=== PATIENT | female | born 1990 | race Caucasian/White ===

== ENCOUNTER 2016-10-20 05:54 | Inpatient (IN) | payer OTHER, MEDICAID ==
[2016-10-20] VITALS (40 sets, daily range): BP systolic 94–136; BP diastolic 51–76
[~2016-10-20] VITALS: Ht 154.9 cm; Wt 71.3 kg
[~2016-10-20 05:54] MED LIST: ACHD5005 PO; ALBU8.5H2; AMOX500C2 PO; BCP; CPR500T PO; CYCL10TA9 PO; FLT05NA16 NSEACH; IBP800T PO; IBUP-15 PO; LORA10TA7 PO; LORA1TAB PO; METR500T PO; MONT10TA21 PO; NAPR-243 PO; NITR-65 PO; [UNRECOGNIZED DRUG - CODE] PO
[2016-10-20] MEDS ORDERED: PREN-37 PO (06:30)
[2016-10-20] MEDS ORDERED: ceFAZolin 2 GM/50 ML NS 50 ML IV ONE (07:00)
[2016-10-20] MEDS ORDERED: fentaNYL INJECTION 100 MCG/2 ML AMP IVP PRN (07:00)
[2016-10-20] MEDS ORDERED: D5 LR IV SOLUTION 1,000 ML IV ONE (07:24)
--- NOTE | 2016-10-20 07:58 | History & Physical-OB ---
OB - Chief Complaint & HPI Date Date of Admission: Date of Admission: October 20, 2016 at 07:17 Chief Complaint/History OB-Reason for Admission/Chief: Onset of Labor Hx : 3 Hx Para: 0 Expected Date of Delivery: October 23, 2016 Gestational Age in Weeks: 39 Other reason for admission: Caitlin is a 26 y/o @ 39w5d by L=10 here with contractions. Started at 2300 yesterday (10/19). No LOF, VB. Fetus active. Became more painful and came for evaluation this AM. c/b tobacco use (counseled to quit has not done so), h/o polysubstance abuse (UDS have been negative), Rh neg s/p RhoGAM, RNI, chronic back pain, anemia, GBS+. History of Labs O neg Antibody neg RNI Hep B/C neg/neg HIV neg RPR NR GC/CT neg/neg GBS+ Allergies and Home Medications Allergies Coded Allergies: Penicillins (Verified Allergy, Unknown, 10/20/16) SEVERE FAMILY HX, SO PT HAS NEVER TAKEN. Home Medications Loratadine 10 Mg Tablet, 10 MG PO DAILY, (Reported) Vit/Iron Fumarate/FA 1 Each Tablet, 1 EACH PO DAILY, (Reported) OB - History Hx of Present Care: Yes Ultrasounds: Normal mid trimester US Obstetrical Complications: Other (anemia, GBS+) Medical Complications: Other (tobacco use, h/o polysubstance abuse, chronic back pain) Information Induced Hypertension: No Maternal Gestational Diabetes: No Hemorrhage: No Obstetrical History Hx : 3 Hx Para: 0 Hx Total # of Abortions (Spona: 2 Delivery History Hx Blood Disorders: No Adverse Rxn to Tranfusion: No Patient Past Medical History see above Social History/Family History HIV/AIDS: No Recent Infectious Disease Expo: No Sexually Transmitted Disease: No Alcohol Use: Denies Use Recreational Drug Use: No Smoking Cessation: Current every day smoker Immunizations Tetanus Booster (TDap): Less than 5yrs Rubella: not immune RPR/VDRL: Negative GBS Status: Positive HBsAG: Negative OB - Admission Exam Physical Exam Vitals: Vital Signs 10/20/16 07:00 Temp 97.5 Pulse 71 Resp 18 B/P (MAP) 122/73 O2 Delivery Room Air HEENT: NCAT Heart: Rhythm Normal Lungs: Clear Abdomen: Gravid Extremities: Normal Reflexes: Normal Cervical Dilatation: 3cm Effacement: 75% Station: -2 Membranes: Intact Heart Rate: 120's Accelerations: Accelerations Present Decelerations: No Decelerations Short Term Variability: Present Home Demonstration Agent Variability: Average (6-25) Contractions on Admission: < 5 Minutes Apart Medrano Scoring Tool (Modified) Dilation (cm): 3-4cm (2) Effacement (%): 80-100% (3) Descent/Station: -2 (1) Cervix Consistency: Soft (2) Cervix Position: Middle/Mid-Position (1) Subtract 1 point for: Nulliparity (-1) Medrano Score: 8 OB - Assessment/Plan/Diagnosis Plan Other Plan 26 y/o @ 39w5d with active labor, GBS+ Rh neg RNI Tobacco use daily H/o polysubstance abuse although no use for several years and negative UDS during Chronic back pain Ancef for GBS ppx (PCN allergy, not anaphylaxis) Will plan to AROM for augmentation and otherwise expectantly manage. Pitocin if indicated. SHEREE Spaulding MD October 20, 2016 07:58
[2016-10-20] MEDS ORDERED: CATHETER FLUSH 10 ML SYR IV PRN (08:15)
[2016-10-20] MEDS ORDERED: D5 LR IV SOLUTION 1,000 ML IV SCH (08:47)
[2016-10-20 08:54] LABS: BASOPHILS # (AUTO) 0.1 10^3/uL (0.0-0.1); BASOPHILS % (AUTO) 0 % (0-10); EOSINOPHILS # (AUTO) 0.2 10^3/uL (0.0-0.3); EOSINOPHILS % (AUTO) 1 % (0-10); LYMPHOCYTES # (AUTO) 3.4 X 10^3 (1.0-4.0); LYMPHOCYTES % (AUTO) 19 % (12-44); MEAN CORPUSCULAR HEMOGLOBIN 34 PG (25-34); MEAN CORPUSCULAR HGB CONC 35 G/DL (32-36); MEAN CORPUSCULAR VOLUME 97 FL (80-99); MEAN PLATELET VOLUME 13.8 FL (7.4-10.4); MONOCYTES # (AUTO) 1.1 X 10^3 (0.0-1.0); MONOCYTES % (AUTO) 6 % (0-12); NEUTROPHILS % (AUTO) 73 % (42-75); PLATELET COUNT 170 10^3/uL (130-400); RED BLOOD COUNT 3.92 10^6/uL (4.35-5.85); RED CELL DISTRIBUTION WIDTH 12.9 % (10.0-14.5); WHITE BLOOD COUNT 17.8 10^3/uL (4.3-11.0)
[2016-10-20] MEDS ORDERED: MINERAL OIL CONCENTRATE 99.9% 15 ML UDC TOP PRN (09:00)
[2016-10-20 09:25] LABS: BAND NEUTROPHILS 6 %; NEUTROPHILS % (MANUAL) 78 %
[2016-10-20 09:26] LABS: BASOPHILS % (MANUAL) 1 %; EOSINOPHILS % (MANUAL) 1 %; LYMPHOCYTES % (MANUAL) 12 %
[2016-10-20] MEDS ORDERED: LACTATED RINGERS 1,000 ML IV ONE (09:30)
[2016-10-20] MEDS ORDERED: SUFENTA 0.6MCG/ML BUPIVA 0.125 100 ML ONE (10:30)
[2016-10-20] MEDS ORDERED: BUPIVACAINE 0.25% 30 ML (SENSORCAINE) VIAL ONE (10:36)
[2016-10-20] MEDS ORDERED: fentaNYL INJECTION 100 MCG/2 ML AMP ONE (10:36)
[2016-10-20] MEDS ORDERED: LIDOCAINE PF 2% 10 ML (XYLOCAINE) AMP ONE (10:36)
[2016-10-20] MEDS ORDERED: LACTATED RINGERS 1,000 ML IV SCH (11:17)
[2016-10-20] MEDS ORDERED: ONDANSETRON 4 MG/2 ML (SDV) Z0FRAN IV PRN (11:30)
[2016-10-20] MEDS ORDERED: EPIDURAL (SUFENTA 0.6MCG/ML BUPIVA 0.125%) 100 ML BAG EPI PRN (11:30)
[2016-10-20] MEDS ORDERED: diphenhydrAMINE 50 MG/ML INJ (BENADRYL) IV PRN (11:30)
[2016-10-20] MEDS ORDERED: NALOXONE 0.4 MG/ML 1 ML (NARCAN) VIAL IV PRN (11:30)
[2016-10-20 11:35] LABS: BILIRUBIN,URINE NEGATIVE (NEGATIVE); KETONES,URINE NEGATIVE (NEGATIVE); LEUKOCYTE ESTERASE ,URINE 1+ (NEGATIVE); NITRITE,URINE NEGATIVE (NEGATIVE); PH,URINE 6.5 (5-9); PROTEIN,URINE NEGATIVE (NEGATIVE); UROBILINOGEN,URINE NORMAL (NORMAL)
[2016-10-20 11:44] LABS: SQUAMOUS EPITHELIAL CELL,UR RARE /HPF
[2016-10-20] MEDS ORDERED: OXYTOCIN/NORMAL SALINE 500 ML IV SCH ×2 (11:46→17:10)
[2016-10-20] MEDS ORDERED: ceFAZolin INJECTION 1,000 MG in NS (IVPB) 50 ML IV SCH (14:00)
--- NOTE | 2016-10-20 15:34 | OB Labor & Delivery Record ---
Vag Delivery Note Vag Delivery Note Date of Delivery: 10/20/16 Preoperative Diagnosis: Caitlin Candelario is a 26 y/o @ 39w5d with active labor, GBS+, tobacco use, RNI, Rh neg Postoperative Diagnosis: Same Surgeon: Sheree Reyna MD Anesthesia: Epidural Delivery Type: Spontaneous vaginal delivery Findings: Viable female , apgars 8/9, weight pending at time of note Lacerations: small vaginal abrasion (repaired), right periurethral abrasion ( reapproximated) Intact placenta with 3 vessel cord. Nuchal cord x 1, body cord or shoulder dystocia Estimated Blood Loss: 400 ml Complications: None Condition: Stable Description of Procedure: The patient is a 26 y/o @ 39w5d who presented with active labor. She was admitted and informed consent was obtained. Her labor course was remarkable for AROM with clear fluid, augmentation with pitocin, and epidural for analgesia. She was adequately treated with ancef for GBS prophylaxis (given her PCN allergy). She progressed to complete dilatation and began to push. She was then set up for delivery. The infant's head was delivered atraumatically in the occiput anterior position. The shoulders and remainder of the 's body were then delivered without difficulty. Upon delivery, the head was held below the level of the perineum and the mouth and nares were bulb suctioned. The was placed on her mother's chest and the cord was doubly clamped and cut following a 30-60 second pause. An intact placenta with 3- vessel cord delivered via Harjeet and there was found to be minimal bleeding. Vigorous fundal massage was performed and the fundus was found to be firm. IV oxytocin was given. Examination of the vagina and perineum revealed a small vaginal wall separation which was repaired with a figure of eight 3-0 Vicryl suture, and a small right periurethral laceration repaired in the usual fashion with 3-0 vicryl suture. Following the repair, sponge, instrument and needle counts were correct. Mom and baby were both in stable condition in the labor suite. Vitals - Labs Vital Signs - I&O Vital Signs Date Time Temp Pulse Resp B/P (MAP) Pulse Ox O2 Delivery O2 Flow Rate FiO2 10/20/16 12:45 98.9 57 18 96/53 98 Room Air 10/20/16 12:30 74 18 96/53 97 Room Air 10/20/16 12:15 84 18 94/51 97 Room Air 10/20/16 12:00 65 18 104/55 97 Room Air 10/20/16 11:45 68 18 109/59 97 Room Air 10/20/16 11:25 60 18 113/52 98 Room Air 10/20/16 11:20 68 18 109/56 97 Room Air 10/20/16 11:15 76 18 120/58 97 Room Air 10/20/16 11:10 56 18 116/57 98 Room Air 10/20/16 11:05 61 18 114/66 98 Room Air 10/20/16 11:00 60 18 110/73 99 Room Air 10/20/16 10:55 67 18 115/58 99 Room Air 10/20/16 10:50 64 18 125/60 99 Room Air 10/20/16 10:45 75 18 121/60 99 Room Air 10/20/16 10:40 60 18 120/65 99 Room Air 10/20/16 09:40 68 18 136/74 Room Air 10/20/16 08:40 76 18 118/58 Room Air 10/20/16 07:40 97.9 56 18 119/67 Room Air 10/20/16 07:00 97.5 71 18 122/73 Room Air Labs Laboratory Tests 10/20/16 06:15: Urine Color YELLOW, Urine Clarity CLEAR, Urine pH 6.5, Urine Specific [place] 1.010L, Urine Protein NEGATIVE, Urine Glucose (UA) NEGATIVE, Urine Ketones NEGATIVE, Urine Nitrite NEGATIVE, Urine Bilirubin NEGATIVE, Urine Urobilinogen NORMAL, Urine Leukocyte Esterase 1+H, Urine RBC (Auto) NEGATIVE, Urine RBC NONE , Urine WBC NONE, Urine Squamous Epithelial Cells RARE, Urine Crystals NONE, Urine Bacteria NEGATIVE, Urine Casts NONE, Urine Mucus NEGATIVE, Urine Culture Indicated NO 10/20/16 07:05: White Blood Count 17.8H, Red Blood Count 3.92L, Hemoglobin 13.2, Hematocrit 38, Mean Corpuscular Volume 97, Mean Corpuscular Hemoglobin 34, Mean Corpuscular Hemoglobin Concent 35, Red Cell Distribution Width 12.9, Platelet Count 170, Mean Platelet Volume 13.8H, Neutrophils (%) (Auto) 73, Lymphocytes (%) (Auto) 19 , Monocytes (%) (Auto) 6, Eosinophils (%) (Auto) 1, Basophils (%) (Auto) 0, Neutrophils # (Auto) 13.0H, Lymphocytes # (Auto) 3.4, Monocytes # (Auto) 1.1H, Eosinophils # (Auto) 0.2, Basophils # (Auto) 0.1, Neutrophils % (Manual) 78, Lymphocytes % (Manual) 12, Monocytes % (Manual) 2, Eosinophils % (Manual) 1, Basophils % (Manual) 1, Band Neutrophils 6, Blood Morphology Comment NORMAL SHEREE REYNA MD October 20, 2016 15:34
[2016-10-20] MEDS ORDERED: DOCU-143 PO (15:37)
[2016-10-20] MEDS ORDERED: HYDR-3729 PO (15:37)
[2016-10-20] MEDS ORDERED: IBUP-1773 PO (15:37)
--- NOTE | 2016-10-20 15:38 | Discharge Inst-Women's Service ---
Discharge Inst-Women's Serv Depart Medication/Instructions New, Converted or Re-Newed RX: RX on Chart Final Diagnosis Active labor, TIUP, Consults/Follow Up Additional Follow Up: Yes Orders/Referrals [address] Ryena Activity Activity: Activity as Tolerated Driving Instructions: You May Drive (unless taking narcotic pain medications) NO SMOKING: NO SMOKING Nothing Inside Vagina: No Douching, No [place], No Tampons Diet Discharge Diet: No Restrictions Symptoms to Report to : Bleeding Excessive, Pain Increased, Fever Over 101 Degrees F, Pain/Pressure in Chest, Vaginal Bleeding Increase, Dizziness/Fainting , Nausea/Vomiting, Shortness of Breath For Any Problems or Questions: Contact Your Physician SHEREE REYNA MD October 20, 2016 15:38
[2016-10-20] MEDS ORDERED: MEASLES,MUMPS,RUBELLA 1 EA INJ SQ ONE (17:15)
[2016-10-20] MEDS ORDERED: HYDROcodone/APAP 5 MG/325 MG (LORTAB) TAB PO PRN (17:15)
[2016-10-20] MEDS ORDERED: BENZOCAINE/MENTHOL (DERMOPLAST) 56 ML CAN TP PRN (17:15)
[2016-10-20] MEDS ORDERED: WITCH HAZEL(TUCKS) 40 EA JAR TOP PRN (17:15)
[2016-10-20] MEDS: IBUPROFEN 600 MG (MOTRIN) TAB PO SCH (20:04)
[2016-10-21 00:40] VITALS: BP 98/52
[2016-10-21] MEDS: IBUPROFEN 600 MG (MOTRIN) TAB PO SCH ×4 (02:09→21:08)
[2016-10-21 05:10] VITALS: BP 106/62
[2016-10-21 05:45] LABS: BASOPHILS % (AUTO) 0 % (0-10); EOSINOPHILS # (AUTO) 0.2 10^3/uL (0.0-0.3); EOSINOPHILS % (AUTO) 1 % (0-10); LYMPHOCYTES % (AUTO) 19 % (12-44); MEAN CORPUSCULAR HEMOGLOBIN 34 PG (25-34); MEAN CORPUSCULAR HGB CONC 34 G/DL (32-36); MEAN CORPUSCULAR VOLUME 99 FL (80-99); MEAN PLATELET VOLUME 13.4 FL (7.4-10.4); MONOCYTES # (AUTO) 1.7 X 10^3 (0.0-1.0); MONOCYTES % (AUTO) 8 % (0-12); NEUTROPHILS # (AUTO) 14.7 X 10^3 (1.8-7.8); NEUTROPHILS % (AUTO) 71 % (42-75); PLATELET COUNT 144 10^3/uL (130-400); RED BLOOD COUNT 3.03 10^6/uL (4.35-5.85); RED CELL DISTRIBUTION WIDTH 12.8 % (10.0-14.5); WHITE BLOOD COUNT 20.7 10^3/uL (4.3-11.0)
[2016-10-21] MEDS: CATHETER FLUSH 10 ML SYR IV SCH ×2 (07:38→07:39)
[2016-10-21] MEDS: DOCUSATE SODIUM 100 MG (COLACE) CAP PO SCH ×3 (08:05→21:08)
[2016-10-21] MEDS: PRENATAL VITAMIN 1 EA TAB PO SCH (08:05)
[2016-10-21 08:55] VITALS: BP 108/71
[2016-10-21] MEDS ORDERED: FERR-84 PO (09:05)
--- NOTE | 2016-10-21 09:23 | Postpartum Progress Note ---
Note Note Day # 1 Subjective: Patient is without complaints. Ambulating, voiding. Tolerating a regular diet without nausea or vomiting. Normal lochia. Pain is well controlled with oral pain medications. Breast feeding. Going out to smoke still. Objective: Vital Sign - Last 12Hours 10/21/16 10/21/16 00:40 05:10 Temp 98.7 98.1 Pulse 60 60 Resp 18 18 B/P (MAP) 98/52 106/62 Pulse Ox 98 99 O2 Delivery Room Air Room Air Intake and Output 10/21/16 00:00 Intake Total 2050 ml Balance 2050 ml Physical Exam: General - Alert and oriented, no apparent distress Abdomen - Soft, appropriately tender to palpation, non-distended, fundus firm at umbilicus Extremities - no edema, negative Roxann's bilaterally Laboratory Tests Test 10/21/16 05:15 Range/Units White Blood Count 20.7 H 4.3-11.0 10^3/uL Red Blood Count 3.03 L 4.35-5.85 10^6/uL Hemoglobin 10.3 #L 11.5-16.0 G/DL Hematocrit 30 L 35-52 % Mean Corpuscular Volume 99 80-99 FL Mean Corpuscular Hemoglobin 34 25-34 PG Mean Corpuscular Hemoglobin Concent 34 32-36 G/DL Red Cell Distribution Width 12.8 10.0-14.5 % Platelet Count 144 130-400 10^3/uL Mean Platelet Volume 13.4 H 7.4-10.4 FL Neutrophils (%) (Auto) 71 42-75 % Lymphocytes (%) (Auto) 19 12-44 % Monocytes (%) (Auto) 8 0-12 % Eosinophils (%) (Auto) 1 0-10 % Basophils (%) (Auto) 0 0-10 % Neutrophils # (Auto) 14.7 H 1.8-7.8 X 10^3 Lymphocytes # (Auto) 4.0 1.0-4.0 X 10^3 Monocytes # (Auto) 1.7 H 0.0-1.0 X 10^3 Eosinophils # (Auto) 0.2 0.0-0.3 10^3/uL Basophils # (Auto) 0.0 0.0-0.1 10^3/uL Assessment: 26 y/o post- day # 1, status post spontaneous vaginal delivery. Recovering well, hemodynamically stable Acute blood loss anemia Hgb 10.3 RNI Rh neg but infant also Rh neg Tobacco use Plan: Routine care. Encourage breast feeding. Encouraged tobacco cessation. Needs MMR. Encourage ambulation. Ferrous sulfate supplementation. Plan for discharge tomorrow. Vitals - Labs Vital Signs - I&O Vital Signs Date Time Temp Pulse Resp B/P (MAP) Pulse Ox O2 Delivery O2 Flow Rate FiO2 10/21/16 05:10 98.1 60 18 106/62 99 Room Air 10/21/16 00:40 98.7 60 18 98/52 98 Room Air 10/20/16 19:55 98.5 87 18 118/68 99 Room Air 10/20/16 18:15 72 20 108/59 Room Air 10/20/16 18:00 64 20 112/55 Room Air 10/20/16 17:45 81 20 134/60 Room Air 10/20/16 17:30 76 20 127/65 Room Air 10/20/16 17:15 61 20 121/65 Room Air 10/20/16 17:00 69 20 115/64 Room Air 10/20/16 16:45 65 20 125/76 Room Air 10/20/16 16:30 83 20 108/55 Room Air 10/20/16 16:15 69 20 107/54 Room Air 10/20/16 16:00 61 18 132/58 Room Air 10/20/16 15:45 18 Room Air 10/20/16 15:30 98.8 18 Room Air 10/20/16 15:28 Non Rebreather 10.00 10/20/16 15:15 64 18 112/56 Room Air 10/20/16 15:00 67 18 113/70 99 Room Air 10/20/16 14:45 58 18 106/59 99 Room Air 10/20/16 14:30 57 18 108/55 98 Room Air 10/20/16 14:15 59 18 104/58 97 Room Air 10/20/16 14:00 67 18 98/55 97 Room Air 10/20/16 13:45 69 18 106/57 98 Room Air 10/20/16 13:30 71 18 103/54 98 Room Air 10/20/16 13:15 83 18 109/57 97 Room Air 10/20/16 13:00 74 18 102/69 98 Room Air 10/20/16 12:45 98.9 57 18 96/53 98 Room Air 10/20/16 12:30 74 18 96/53 97 Room Air 10/20/16 12:15 84 18 94/51 97 Room Air 10/20/16 12:00 65 18 104/55 97 Room Air 10/20/16 11:45 68 18 109/59 97 Room Air 10/20/16 11:25 60 18 113/52 98 Room Air 10/20/16 11:20 68 18 109/56 97 Room Air 10/20/16 11:15 76 18 120/58 97 Room Air 10/20/16 11:10 56 18 116/57 98 Room Air 10/20/16 11:05 61 18 114/66 98 Room Air 10/20/16 11:00 60 18 110/73 99 Room Air 10/20/16 10:55 67 18 115/58 99 Room Air 10/20/16 10:50 64 18 125/60 99 Room Air 10/20/16 10:45 75 18 121/60 99 Room Air 10/20/16 10:40 60 18 120/65 99 Room Air 10/20/16 09:40 68 18 136/74 Room Air I & O 10/21/16 07:00 Intake Total 2100 ml Balance 2100 ml Labs Laboratory Tests 10/21/16 05:15: White Blood Count 20.7H, Red Blood Count 3.03L, Hemoglobin 10.3#L, Hematocrit 30L, Mean Corpuscular Volume 99, Mean Corpuscular Hemoglobin 34, Mean Corpuscular Hemoglobin Concent 34, Red Cell Distribution Width 12.8, Platelet Count 144, Mean Platelet Volume 13.4H, Neutrophils (%) (Auto) 71, Lymphocytes (% ) (Auto) 19, Monocytes (%) (Auto) 8, Eosinophils (%) (Auto) 1, Basophils (%) ( Auto) 0, Neutrophils # (Auto) 14.7H, Lymphocytes # (Auto) 4.0, Monocytes # (Auto ) 1.7H, Eosinophils # (Auto) 0.2, Basophils # (Auto) 0.0 SHEREE DA SILVA MD October 21, 2016 09:23
[2016-10-21] MEDS: FERROUS SULF 325 MG (IRON) TAB PO SCH (13:00)
[2016-10-21 14:39] VITALS: BP 112/69
[2016-10-21 21:09] VITALS: BP 126/73
[2016-10-22] MEDS: IBUPROFEN 600 MG (MOTRIN) TAB PO SCH ×2 (02:42→08:45)
[2016-10-22 02:45] VITALS: BP 106/66
--- NOTE | 2016-10-22 08:14 | Postpartum Progress Note ---
Note Note Day # 2 Subjective: Patient is without complaints. Ambulating, voiding. Tolerating a regular diet without nausea or vomiting. Normal lochia. Pain is well controlled with oral pain medications. Breast feeding thinking of switching to formula due to latch issues. Objective: Vital Sign - Last 12Hours 10/21/16 10/22/16 21:09 02:45 Temp 97.8 97.3 Pulse 68 65 Resp 18 20 B/P (MAP) 126/73 106/66 Pulse Ox 98 99 O2 Delivery Room Air Room Air Physical Exam: General - Alert and oriented, no apparent distress Abdomen - Soft, appropriately tender to palpation, non-distended, fundus firm at umbilicus Extremities - no edema, negative Roxann's bilaterally no new labs Assessment: 26 y/o post- day # 2, status post spontaneous vaginal delivery. Recovering well, hemodynamically stable Acute blood loss anemia Hgb 10.3 RNI Rh neg but also Rh neg Tobacco use Plan: Routine care. Encourage breast feeding. Encouraged tobacco cessation. MMR prior to discharge Encourage ambulation. Ferrous sulfate supplementation. Plan for discharge today, f/u with me in 6 weeks, wants Nexplanon for contraception Vitals - Labs Vital Signs - I&O Vital Signs Date Time Temp Pulse Resp B/P (MAP) Pulse Ox O2 Delivery O2 Flow Rate FiO2 10/22/16 02:45 97.3 65 20 106/66 99 Room Air 10/21/16 21:09 97.8 68 18 126/73 98 Room Air 10/21/16 14:39 97.8 72 18 112/69 Room Air 10/21/16 08:55 97.3 68 18 108/71 99 Room Air SHEREE DA SILVA MD October 22, 2016 08:14
[2016-10-22 08:43] VITALS: BP 112/74
[2016-10-22] MEDS: DOCUSATE SODIUM 100 MG (COLACE) CAP PO SCH (08:45)
[2016-10-22] MEDS: FERROUS SULF 325 MG (IRON) TAB PO SCH (08:46)
[2016-10-22] MEDS: PRENATAL VITAMIN 1 EA TAB PO SCH (08:46)
--- NOTE | 2016-10-22 10:20 | Anesthesia-Regional Post-Op ---
Regional Patient Condition Mental Status: Alert, Oriented x3 Circulation: Same as Pre-Op Headache: Absent Sensation: Full Recovery Motor Block: Absent Post Op Complications Complications None Follow Up Care/Instructions Patient Instructions None needed. Anesthesia/Patient Condition Patient is doing well, no complaints, stable vital signs, no apparent adverse anesthesia problems. No complications reported per nursing. MICHAEL GOSS CRNA October 22, 2016 10:20
[2016-10-22 13:14] VITALS: BP 112/74
== END 2016-10-22 13:14 | disposition home or self-care (01) | DRG 775 ==
LOC: WSo 05:54 → LDRP 05:55 → WSo 07:16 → LDRP 07:17
PROVIDERS: ADMIT Obstetrics & Gynecology; ATTEND Obstetrics & Gynecology
PROC: 0UQMXZZ Repair Vulva, External Approach (ICD-10-PCS; principal; 2016-10-20)
PROC: 10E0XZZ Delivery of Products of Conception, External Approach (ICD-10-PCS; 2016-10-20)
DX: O99.824 Streptococcus B carrier state complicating childbirth (principal); O71.82 Other specified trauma to perineum and vulva; O99.334 Smoking (tobacco) complicating childbirth; F17.210 Nicotine dependence, cigarettes, uncomplicated; O69.81X0 Labor and delivery complicated by cord around neck, without compression, not applicable or unspecified; D62 Acute posthemorrhagic anemia; O99.02 Anemia complicating childbirth; Z3A.39 39 weeks gestation of pregnancy; Z37.0 Single live birth; Z23 Encounter for immunization
CPT/HCPCS: 36415; 81000; 85007; 85025; 85027; 86850; 86900; 86901; 90707; 99212

== ENCOUNTER 2016-10-29 18:56 | Inpatient (IN) | payer OTHER, MEDICAID ==
[~2016-10-29] VITALS: Ht 154.9 cm; Wt 66.5 kg
[~2016-10-29 18:56] MED LIST changes: +DOCU-143 PO; +FERR-84 PO; +HYDR-3729 PO; +IBUP-1773 PO; +PREN-37 PO
[2016-10-29] MEDS ORDERED: NS IV 1000 ML 1,000 ML IV ONE (19:11)
[2016-10-29 19:58] LABS: INR 1.1 (0.8-1.4); PROTHROMBIN TIME PATIENT 13.8 SEC (12.2-14.7)
[2016-10-29 20:02] LABS: BILIRUBIN,URINE NEGATIVE (NEGATIVE); KETONES,URINE NEGATIVE (NEGATIVE); LEUKOCYTE ESTERASE ,URINE NEGATIVE (NEGATIVE); NITRITE,URINE NEGATIVE (NEGATIVE); PH,URINE 8 (5-9); PROTEIN,URINE NEGATIVE (NEGATIVE); UROBILINOGEN,URINE NORMAL (NORMAL)
[2016-10-29 20:07] LABS: BASOPHILS % (AUTO) 0 % (0-10); EOSINOPHILS % (AUTO) 0 % (0-10); LYMPHOCYTES # (AUTO) 1.7 X 10^3 (1.0-4.0); LYMPHOCYTES % (AUTO) 6 % (12-44); MEAN CORPUSCULAR HEMOGLOBIN 34 PG (25-34); MEAN CORPUSCULAR HGB CONC 35 G/DL (32-36); MEAN CORPUSCULAR VOLUME 99 FL (80-99); MEAN PLATELET VOLUME 11.6 FL (7.4-10.4); MONOCYTES # (AUTO) 0.9 X 10^3 (0.0-1.0); MONOCYTES % (AUTO) 4 % (0-12); NEUTROPHILS # (AUTO) 23.3 X 10^3 (1.8-7.8); NEUTROPHILS % (AUTO) 90 % (42-75); PLATELET COUNT 245 10^3/uL (130-400); RED BLOOD COUNT 3.33 10^6/uL (4.35-5.85); RED CELL DISTRIBUTION WIDTH 12.5 % (10.0-14.5); WHITE BLOOD COUNT 25.9 10^3/uL (4.3-11.0)
[2016-10-29 20:08] LABS: ALANINE AMINOTRANSFERASE 17 U/L (0-55); ALBUMIN 3.4 G/DL (3.2-4.5); ASPARTATE AMINO TRANSFERASE 14 U/L (5-34); BILIRUBIN,TOTAL 0.5 MG/DL (0.1-1.0); BLOOD UREA NITROGEN 12 MG/DL (7-18); BUN/CREATININE RATIO 16; CALCIUM 8.8 MG/DL (8.5-10.1); CARBON DIOXIDE 24 MMOL/L (21-32); CREATININE SERUM 0.73 MG/DL (0.60-1.30); GFR ESTIMATED > 60; GLUCOSE 121 MG/DL (70-105); TOTAL PROTEIN 5.8 G/DL (6.4-8.2)
--- NOTE | 2016-10-29 20:16 | Diagnostic Imaging Report ---
CLINICAL INDICATION: Patient states she had fever for all of today and filling nauseous. Her highest fever was 102.8. Patient had a baby 9 days ago. EXAM: Portable chest x-ray upright view. COMPARISONS: None. FINDINGS: Lungs/pleura: Lungs are clear. There is no pneumothorax. There is no pleural effusion. Mediastinum: Unremarkable. Pulmonary vasculature: Unremarkable. Heart: Unremarkable. Bones/extrathoracic soft tissue: Unremarkable. IMPRESSION: 1: There is no radiographic evidence of acute cardiopulmonary process. Dictated by: Dictated on workstation # [id number]
[2016-10-29 20:17] LABS: WBC,URINE RARE /HPF
--- NOTE | 2016-10-29 20:22 | ED General ---
General Chief Complaint: Fever-Adult/Adol Stated Complaint: POST /PELVIC PAIN/PRESSURE/FEVER Nursing Triage Note: PT STATES SHE HAS HAD A FEVER FOR ALL OF TODAY AND FEELING NAUSEA. HER HIGHEST FEVER TODAY WAS 102.8. SHE HAD A BABY 9 DAYS AGO. HER TEMPERATURE TODAY IS 100.8. NO VOMITING. Nursing Sepsis Screen: No Definite Risk Source of Information: Patient Exam Limitations: No Limitations History of Present Illness Time Seen by Provider: 19:00 Initial Comments This 26-year-old young lady presents to the emergency room with complaints of fever and abdominal pressure day number 9. Temperature at home has been up to 102.8 and is 100.8 on arrival. She is tachycardic as well. Pain is in the central pelvis from the umbilicus down through the suprapubic region. There is no increase in pain with urination. She continues to have bleeding with slight increase today. She has been nauseated throughout the day without vomiting. Symptoms just started today. Pain is becoming unbearable. She has been unable to break her fever with ibuprofen 600 mg. She last took ibuprofen about 30 minutes prior to arrival. She is breast and bottle feeding. She has a relatively uncomplicated past medical history. Review of her chart reveals an uncomplicated spontaneous vaginal delivery by Dr. Reyna on October 20. She had some minor vaginal and periurethral lacerations but no other complications. Allergies and Home Medications Allergies Coded Allergies: Penicillins (Verified Allergy, Unknown, 10/20/16) SEVERE FAMILY HX, SO PT HAS NEVER TAKEN. Home Medications Docusate Sodium 100 Mg Capsule, 100 MG PO BID PRN for CONSTIPATION-1ST LINE, #60 Prescribed by: SHEREE REYNA on 10/20/16 1537 Ferrous Sulfate 325 Mg Tablet, 325 MG PO DAILY, #30 Ref 2 Prescribed by: SHEREE REYNA on 10/21/16 0905 Ibuprofen 600 Mg Tablet, 600 MG PO Q6H, #40 Ref 0 Prescribed by: SHEREE REYNA on 10/20/16 1537 Vit/Iron Fumarate/FA 1 Each Tablet, 1 EACH PO DAILY, (Reported) Constitutional: see HPI EENTM: no symptoms reported Respiratory: no symptoms reported Cardiovascular: no symptoms reported Gastrointestinal: see HPI Genitourinary: see HPI : No Musculoskeletal: no symptoms reported Skin: see HPI Psychiatric/Neurological: No Symptoms Reported Hematologic/Lymphatic: No Symptoms Reported Past Jfuuwri-Zyinlf-Liinwy Hx Patient Social History Alcohol Use: Occasionally Uses Recreational Drug Use: No Smoking Status: Current Everyday Smoker Type Used: Cigarettes 2nd Hand Smoke Exposure: Yes Recent Foreign Travel: No Contact w/Someone Who Travel: No Recent Infectious Disease Expo: No Recent Hopitalizations: No Immunizations Up To Date Tetanus Booster (TDap): Less than 5yrs PED Vaccines UTD: No Seasonal Allergies Seasonal Allergies: No Surgeries HX Surgeries: Yes Surgeries: Adenoidectomy, Appendectomy, Tonsillectomy Respiratory Hx Respiratory Disorders: Yes (possible nasal polyps) Cardiovascular Hx Cardiac Disorders: No Neurological Hx Neurological Disorders: No Reproductive System Hx Reproductive Disorders: No Sexually Transmitted Disease: No HIV/AIDS: No Genitourinary Hx Genitourinary Disorders: No Gastrointestinal Hx Gastrointestinal Disorders: No Musculoskeletal Hx Musculoskeletal Disorders: No Endocrine Hx Endocrine Disorders: No HEENT HX ENT Disorders: No Cancer Hx Cancer: No Psychosocial Hx Psychiatric Problems: Yes Behavioral Health Disorders: Anxiety Integumentary HX Skin/Integumentary Disorder: No Blood Transfusions Hx Blood Disorders: No Adverse Reaction to a Blood Tr: No Family Medical History Significant Family History: No Pertinent Family Hx Family Medial History: Diabetes mellitus (MOTHER FATHER) FH: cancer (MOTHER PGF) FH: heart disease (FATHER MGM PGM) Hypertension (MOTHER FATHER MGM PGM MGF PGF) Physical Exam-Suspected Sepsis Physical Exam Vital Signs Vital Sign - Last 12Hours 10/29/16 19:04 Temp 100.8 Pulse 111 Resp 20 B/P (MAP) 115/66 Pulse Ox 96 O2 Delivery Room Air Capillary Refill : Less Than 3 Seconds Blood Pressure Mean: 82 General Appearance: No Apparent Distress, WD/WN, Thin, Other (appears generally ill) HEENT: Normal ENT Inspection Neck: Normal Inspection Respiratory: Lungs Clear, Normal Breath Sounds, No Accessory Muscle Use, No Respiratory Distress Cardiovascular: No Edema, No Murmur, Tachycardia Gastrointestinal: Normal Bowel Sounds, Soft, Tenderness (Central pelvic tenderness from the umbilicus to the suprapubic region) Genital/Rectal: Other (vaginal bleeding noted with well-healing periurethral laceration with sutures intact) Back: Normal Inspection Extremity: Normal Inspection, No Pedal Edema Neurologic/Psychiatric: Alert, Oriented x3, No Motor/Sensory Deficits, Normal 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, 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 Norm as Tested Skin: normal color, warm/dry, other (see above) Focused Exam Evaluation Sepsis Stage: Sepsis Possible Source: Genitouriary Time of Focused Exam: 22:31 Respiratory: Lungs Clear, Normal Breath Sounds, No Accessory Muscle Use, No Respiratory Distress Cardiovascular: Regular Rate, Rhythm, No Edema, No Murmur Capillary Refill: Less Than 3 Seconds Skin: normal color, warm/dry Lactic Acid Level Laboratory Tests Test 10/29/16 19:37 Lactic Acid Level 1.11 MMOL/L (0.50-2.00) Progress/Results/Core Measures Suspected Sepsis Recent Fever Within 48 Hours: Yes Infection Criteria Present: None New/Unexplained Altered Menta: No Sepsis Screen: No Definite Risk Sepsis Diagnosis: SIRS Temperature:100.8 Pulse: 111 Respiratory Rate: 20 Laboratory Tests 10/29/16 19:37: White Blood Count 25.9H Blood Pressure 115 /66 Mean: 82 Laboratory Tests 10/29/16 19:37: Creatinine 0.73, INR Comment 1.1, Platelet Count 245, Total Bilirubin 0.5 Results/Orders Lab Results Laboratory Tests Test 10/29/16 19:37 10/29/16 19:54 Range/Units White Blood Count 25.9 H 4.3-11.0 10^3/uL Red Blood Count 3.33 L 4.35-5.85 10^6/uL Hemoglobin 11.3 L 11.5-16.0 G/DL Hematocrit 33 L 35-52 % Mean Corpuscular Volume 99 80-99 FL Mean Corpuscular Hemoglobin 34 25-34 PG Mean Corpuscular Hemoglobin Concent 35 32-36 G/DL Red Cell Distribution Width 12.5 10.0-14.5 % Platelet Count 245 130-400 10^3/uL Mean Platelet Volume 11.6 H 7.4-10.4 FL Neutrophils (%) (Auto) 90 H 42-75 % Lymphocytes (%) (Auto) 6 L 12-44 % Monocytes (%) (Auto) 4 0-12 % Eosinophils (%) (Auto) 0 0-10 % Basophils (%) (Auto) 0 0-10 % Neutrophils # (Auto) 23.3 H 1.8-7.8 X 10^3 Lymphocytes # (Auto) 1.7 1.0-4.0 X 10^3 Monocytes # (Auto) 0.9 0.0-1.0 X 10^3 Eosinophils # (Auto) 0.0 0.0-0.3 10^3/uL Basophils # (Auto) 0.0 0.0-0.1 10^3/uL Neutrophils % (Manual) 76 % Lymphocytes % (Manual) 6 % Monocytes % (Manual) 1 % Eosinophils % (Manual) 0 % Basophils % (Manual) 0 % Band Neutrophils 17 % Blood Morphology Comment NORMAL Prothrombin Time 13.8 12.2-14.7 SEC INR Comment 1.1 0.8-1.4 Activated Partial Thromboplast Time 34 24-35 SEC Sodium Level 139 135-145 MMOL/L Potassium Level 3.4 L 3.6-5.0 MMOL/L Chloride Level 106 98-107 MMOL/L Carbon Dioxide Level 24 21-32 MMOL/L Anion Gap 9 5-14 MMOL/L Blood Urea Nitrogen 12 7-18 MG/DL Creatinine 0.73 0.60-1.30 MG/DL Estimat Glomerular Filtration Rate > 60 BUN/Creatinine Ratio 16 Glucose Level 121 H 70-105 MG/DL Lactic Acid Level 1.11 0.50-2.00 MMOL/L Calcium Level 8.8 8.5-10.1 MG/DL Total Bilirubin 0.5 0.1-1.0 MG/DL Aspartate Amino Transf (AST/SGOT) 14 5-34 U/L Alanine Aminotransferase (ALT/SGPT) 17 0-55 U/L Alkaline Phosphatase 91 40-136 U/L Total Protein 5.8 L 6.4-8.2 G/DL Albumin 3.4 3.2-4.5 G/DL Urine Color YELLOW Urine Clarity CLEAR Urine pH 8 5-9 Urine Specific [place] 1.010 L 1.016-1.022 Urine Protein NEGATIVE NEGATIVE Urine Glucose (UA) NEGATIVE NEGATIVE Urine Ketones NEGATIVE NEGATIVE Urine Nitrite NEGATIVE NEGATIVE Urine Bilirubin NEGATIVE NEGATIVE Urine Urobilinogen NORMAL NORMAL MG/DL Urine Leukocyte Esterase NEGATIVE NEGATIVE Urine RBC (Auto) NEGATIVE NEGATIVE Urine RBC RARE /HPF Urine WBC RARE /HPF Urine Crystals NONE /LPF Urine Bacteria NONE /HPF Urine Casts NONE /LPF Urine Mucus SMALL H /LPF Urine Culture Indicated NO My Orders Orders - POLO OCAMPO MD Cbc With Automated Diff (10/29/16 18:58) Comprehensive Metabolic Panel (10/29/16 18:58) Ua Culture If Indicated (10/29/16 18:58) Saline Lock/Iv-Start (10/29/16 18:58) Lactic Acid Analyzer (10/29/16 19:11) Blood Culture (10/29/16 19:11) Sputum Culture (10/29/16 19:11) Protime With Inr (10/29/16 19:11) Partial Thromboplastin Time (10/29/16 19:11) Chest 1 View, Ap/Pa Only (10/29/16 19:11) O2 (10/29/16 19:11) Vital Signs Adult Sepsis Patie Q1HR (10/29/16 19:11) Remove Rings In Anticipation O (10/29/16 19:11) Ns Iv 1000 Ml (Sodium Chloride 0.9%) (10/29/16 19:11) Manual Differential (10/29/16 19:37) Clindamycin Injection (Cleocin Injection (10/29/16 20:30) Fentanyl Injection (Sublimaze Injection (10/29/16 20:45) Us Pelvic (Non Ob)[id number] (10/29/16 20:27) Medications Given in ED Current Medications Medications Dose Ordered Sig/Kianna Route Start Time Stop Time Status Last Admin Dose Admin Clindamycin Phosphate 900 mg/ Sodium Chloride 56 ml @ 100 mls/hr ONCE ONCE IV 10/29/16 20:30 10/29/16 21:03 DC 10/29/16 20:45 100 MLS/HR Fentanyl Citrate 50 mcg ONCE ONCE IVP 10/29/16 20:45 10/29/16 20:46 DC 10/29/16 20:43 50 MCG Sodium Chloride 1,000 ml @ 0 mls/hr Q0M ONCE IV 10/29/16 19:11 10/29/16 19:13 DC 10/29/16 20:04 1,000 MLS/HR Vital Signs/I&O Vital Sign - Last 12Hours 10/29/16 19:04 Temp 100.8 Pulse 111 Resp 20 B/P (MAP) 115/66 Pulse Ox 96 O2 Delivery Room Air Capillary Refill : Less Than 3 Seconds Blood Pressure Mean: 82 Progress Note #1: Time: 20:25 Progress Note Sepsis is suspected. A liter of IV fluids was initiated. Blood cultures and lactic acid drawn. Catheter UA specimen was collected by this provider. Patient is noted to have a significant leukocytosis. Antibiotic selection will be pending UA results. Progress Note #2: Time: 20:44 Progress Note Clindamycin 900 mg IV was started for initial therapy for suspected metritis or endometritis. Ultrasound was also ordered. Fentanyl was given for pain. Diagnostic Imaging Diagonstic Imaging: Xray Plain Films/CT/US/NM/MRI: chest Comments Chest x-ray viewed by me and report reviewed. See report below: NAME: MARIS DIETZ [employer] REC#: [id number] PT STATUS: REG ER : 1990 PHYSICIAN: POLO OCAMPO MD ADMIT DATE: 10/29/16/ER Draft Date of Exam:10/29/16 CHEST 1 VIEW, AP/PA ONLY CLINICAL INDICATION: Patient states she had fever for all of today and filling nauseous. Her highest fever was 102.8. Patient had a baby 9 days ago. EXAM: Portable chest x-ray upright view. COMPARISONS: None. FINDINGS: Lungs/pleura: Lungs are clear. There is no pneumothorax. There is no pleural effusion. Mediastinum: Unremarkable. Pulmonary vasculature: Unremarkable. Heart: Unremarkable. Bones/extrathoracic soft tissue: Unremarkable. IMPRESSION: 1: There is no radiographic evidence of acute cardiopulmonary process. Dictated on workstation # [id number] Dict: 10/29/162011 Trans: 10/29/162014 [id number] Interpreted by: MUSA GIMENEZ MD Diagonstic Imaging: Ultrasound Plain Films/CT/US/NM/MRI: pelvis Comments Pelvic ultrasound discussed with the bacteriology technician and report reviewed. See report below: NAME: MARIS DIETZ [employer] REC#: [id number] PT STATUS: REG ER : 1990 PHYSICIAN: POLO OCAMPO MD ADMIT DATE: 10/29/16/ER Signed Date of Exam: 10/29/16 US PELVIC (NON OB)[id number] Clinical indication: Patient with vaginal delivery 9 days ago with pelvic pressure and fever. Patient has heavy bleeding. Exam: Transabdominal ultrasound. Comparison: None. Findings: There is heterogeneous debris seen in the endometrium which measures 1.8 cm. There is the suggestion of minimal Doppler flow within this debris. There is mild thickening of the endometrium, as well. The uterus appears post gravid and measures 15 cm x 9.5 cm x 7.1 cm. There is no significant increased flow involving the uterus. Both ovaries were unable to be visualized due to bowel gas and size of uterus. Impression: 1: There is heterogeneous debris within the endometrium with suggestion of some Doppler flow. This may represent retained products of conception. Early endometritis also cannot be completely excluded. 2: The remainder of the uterus is unremarkable and post-gravid in appearance. 3: Both ovaries were unable to be visualized on this exam. Dictated by: Dictated on workstation # [id number] Dict: 10/29/162156 Trans: 10/29/162209 Interpreted by: MUSA GIMENEZ MD Electronically signed by: MUSA GIMENEZ MD 10/29/162209 Departure Communication Time/Spoke to Admitting Phy: 22:15 Communication Case reviewed with Dr. Villanueva who agrees with admission to Dr. Reyna with continuation of clindamycin and addition of gentamicin. Impression Impression: Primary Impression: Sepsis Qualified Codes: A41.9 - Sepsis, unspecified organism Additional Impressions: Retained products of conception Pelvic pain Endometritis Disposition: ADMITTED INPATIENT Condition: Improved Decision to Admit Reason: Admit from ER (General) Decision to Admit/Date: October 29, 2016 Time/Decision to Admit Time: 20:25 Departure-Patient Inst. Referrals: [facility] (PCP) Primary Care Physician SHEREE REYAN MD (Family) Primary Care Physician POLO OCAMPO MD October 29, 2016 20:22
[2016-10-29 20:25] LABS: ANION GAP 9 MMOL/L (5-14); CHLORIDE 106 MMOL/L (98-107); POTASSIUM 3.4 MMOL/L (3.6-5.0); SODIUM 139 MMOL/L (135-145)
[2016-10-29 20:26] LABS: BAND NEUTROPHILS 17 %; BASOPHILS % (MANUAL) 0 %; EOSINOPHILS % (MANUAL) 0 %; LYMPHOCYTES % (MANUAL) 6 %; NEUTROPHILS % (MANUAL) 76 %
[2016-10-29] MEDS ORDERED: CLINDAMYCIN INJECTION 900 MG in NS (IVPB) 50 ML IV ONE (20:30)
[2016-10-29] MEDS ORDERED: fentaNYL INJECTION 100 MCG/2 ML AMP IVP ONE (20:45)
--- NOTE | 2016-10-29 22:10 | Diagnostic Imaging Report ---
Clinical indication: Patient with vaginal delivery 9 days ago with pelvic pressure and fever. Patient has heavy bleeding. Exam: Transabdominal ultrasound. Comparison: None. Findings: There is heterogeneous debris seen in the endometrium which measures 1.8 cm. There is the suggestion of minimal Doppler flow within this debris. There is mild thickening of the endometrium, as well. The uterus appears post gravid and measures 15 cm x 9.5 cm x 7.1 cm. There is no significant increased flow involving the uterus. Both ovaries were unable to be visualized due to bowel gas and size of uterus. Impression: 1: There is heterogeneous debris within the endometrium with suggestion of some Doppler flow. This may represent retained products of conception. Early endometritis also cannot be completely excluded. 2: The remainder of the uterus is unremarkable and post-gravid in appearance. 3: Both ovaries were unable to be visualized on this exam. Dictated by: Dictated on workstation # [id number]
[2016-10-29] MEDS ORDERED: fentaNYL INJECTION 100 MCG/2 ML AMP ONE (23:21)
[2016-10-29] MEDS ORDERED: D5 1/2 NS W/KCL 20 MEQ/L 1,000 ML IV ONE (23:21)
[2016-10-29 23:30] VITALS: BP 123/73
[2016-10-29] MEDS ORDERED: NICOTINE 21 MG (NICODERM) PATCH TD PRN (23:45)
[2016-10-29] MEDS ORDERED: ONDANSETRON 4 MG/2 ML (SDV) Z0FRAN IV PRN (23:45)
[2016-10-29] MEDS ORDERED: CATHETER FLUSH 10 ML SYR IV PRN (23:45)
[2016-10-30] VITALS (10 sets, daily range): BP systolic 118–156; BP diastolic 66–87
[2016-10-30] MEDS ORDERED: fentaNYL INJECTION 100 MCG/2 ML AMP IVP PRN
[2016-10-30] MEDS: fentaNYL INJECTION 100 MCG/2 ML AMP IV PRN ×6 (03:46→23:10)
[2016-10-30] MEDS: ACETAMINOPHEN 500 MG TAB (TYLENOL) PO PRN ×2 (03:46→15:44)
[2016-10-30 04:51] LABS: BASOPHILS % (AUTO) 0 % (0-10); EOSINOPHILS % (AUTO) 0 % (0-10); LYMPHOCYTES # (AUTO) 1.4 X 10^3 (1.0-4.0); LYMPHOCYTES % (AUTO) 8 % (12-44); MEAN CORPUSCULAR HEMOGLOBIN 33 PG (25-34); MEAN CORPUSCULAR HGB CONC 33 G/DL (32-36); MEAN CORPUSCULAR VOLUME 100 FL (80-99); MEAN PLATELET VOLUME 11.6 FL (7.4-10.4); MONOCYTES # (AUTO) 0.8 X 10^3 (0.0-1.0); MONOCYTES % (AUTO) 4 % (0-12); NEUTROPHILS # (AUTO) 14.9 X 10^3 (1.8-7.8); NEUTROPHILS % (AUTO) 87 % (42-75); PLATELET COUNT 220 10^3/uL (130-400); RED CELL DISTRIBUTION WIDTH 12.9 % (10.0-14.5)
[2016-10-30 05:10] LABS: ALANINE AMINOTRANSFERASE 15 U/L (0-55); ALBUMIN 3.3 G/DL (3.2-4.5); ANION GAP 9 MMOL/L (5-14); ASPARTATE AMINO TRANSFERASE 14 U/L (5-34); BILIRUBIN,TOTAL 0.4 MG/DL (0.1-1.0); BLOOD UREA NITROGEN 9 MG/DL (7-18); BUN/CREATININE RATIO 14; CALCIUM 8.2 MG/DL (8.5-10.1); CARBON DIOXIDE 22 MMOL/L (21-32); CHLORIDE 108 MMOL/L (98-107); CREATININE SERUM 0.63 MG/DL (0.60-1.30); GFR ESTIMATED > 60; GLUCOSE 98 MG/DL (70-105); POTASSIUM 3.5 MMOL/L (3.6-5.0); SODIUM 139 MMOL/L (135-145); TOTAL PROTEIN 5.6 G/DL (6.4-8.2)
[2016-10-30] MEDS: CATHETER FLUSH 10 ML SYR IV SCH ×3 (05:39→22:00)
[2016-10-30] MEDS: D5 1/2 NS W/KCL 20 MEQ/L 1,000 ML IV SCH ×4 (05:39→17:37)
[2016-10-30] MEDS: CLINDAMYCIN 900 MG/NS 50 ML IVPB IV SCH ×6 (05:55→22:00)
[2016-10-30] MEDS: GENTAMICIN 100 MG/50 ML IV SCH ×4 (07:46→23:45)
[2016-10-30] MEDS ORDERED: DOCU-143 PO (08:53)
[2016-10-30] MEDS ORDERED: IBUP-1773 PO (08:53)
[2016-10-30] MEDS ORDERED: FERR-74 PO (08:53)
[2016-10-30] MEDS: cefTRIAXone INJECTION 1,000 MG in NS (IVPB) 50 ML IV SCH (09:22)
--- NOTE | 2016-10-30 10:23 | History & Physical-OB/GYN ---
History of Present Illness History of Present Illness Reason for visit/HPI Pelvic pain, fevers, pressure x 2-3 days. Patient was doing well until approx 2 -3 days ago when she began having pelvic pain, and pressure. She developed a fever last night and presented to the ER. Reports mild to light lochia. Date of Admission October 29, 2016 at 10:19 pm I consulted on this patient on 10/30/16 10:16 Attending Physician Anita Minaya MD Admitting Physician Gab,[facility] Consult Allergies and Home Medications Allergies Coded Allergies: Penicillins (Verified Allergy, Unknown, 10/20/16) SEVERE FAMILY HX, SO PT HAS NEVER TAKEN. Home Medications Docusate Sodium 100 Mg Capsule, 100 MG PO BID PRN for CONSTIPATION-1ST LINE, ( Reported) Ferrous Sulfate 325 Mg Tablet, 325 MG PO DAILY, (Reported) Ibuprofen 600 Mg Tablet, 600 MG PO Q6H PRN for PAIN-MILD, (Reported) Vit/Iron Fumarate/FA 1 Each Tablet, 1 TAB PO DAILY, (Reported) Past Swsozcf-Obcbgz-Bmwwnj Hx Patient Social History Alcohol Use: Denies Use Recreational Drug Use: No Smoking Status: Current Everyday Smoker Type Used: Cigarettes 2nd Hand Smoke Exposure: Yes Physical Abuse Screen: No Sexual Abuse: No Recent Foreign Travel: No Contact w/other who traveled: No Recent Hopitalizations: Yes ([place] 10/20/16) Recent Infectious Disease Expo: No Immunizations Up To Date Tetanus Booster (TDap): Less than 5yrs Seasonal Allergies Seasonal Allergies: No Surgeries HX Surgeries: Yes Surgeries: Adenoidectomy, Appendectomy, Tonsillectomy Respiratory Hx Respiratory Disorders: Yes (possible nasal polyps) Cardiovascular Hx Cardiovascular Disorders: No Neurological Hx Neurological Disorders: No Reproductive System : No Hx Reproductive Disorders: No Sexually Transmitted Disease: No HIV/AIDS: No Genitourinary Hx Genitourinary Disorders: No Gastrointestinal Hx Gastrointestinal Disorders: No Musculoskeletal Hx Musculoskeletal Disorders: No Endocrine Hx Endocrine Disorders: No HEENT HX ENT Disorders: No Cancer Hx Cancer: No Psychosocial Hx Psychiatric Problems: Yes Behavioral Health Disorders: Anxiety Integumentary HX Skin/Integumentary Disorder: No Blood Transfusions Hx Blood Disorders: No Adverse Reaction to a Blood Tr: No Family Medical History Significant Family History: No Pertinent Family Hx Family Hx: Diabetes mellitus (MOTHER FATHER) FH: cancer (MOTHER PGF) FH: heart disease (FATHER MGM PGM) Hypertension (MOTHER FATHER MGM PGM MGF PGF) Constitutional: see HPI EENTM: see HPI Respiratory: see HPI Cardiovascular: see HPI Gastrointestinal: see HPI Genitourinary: see HPI : No Skin: no symptoms reported Psychiatric/Neurological: No Symptoms Reported All Other Systems Reviewed Negative Unless Noted: Yes Physical Exam Physical Exam Vital Signs Vital Signs Date Time Temp Pulse Resp B/P (MAP) Pulse Ox O2 Delivery O2 Flow Rate FiO2 10/30/16 08:00 97.9 51 20 132/77 96 10/30/16 06:30 97.4 10/30/16 05:30 99.0 58 16 120/69 97 10/30/16 05:14 99.1 10/30/16 04:30 99.1 57 18 124/66 96 10/30/16 03:46 102.2 10/30/16 03:30 102.2 70 18 156/77 93 10/30/16 02:30 100.4 63 20 144/71 96 10/30/16 01:30 99.9 64 20 134/75 97 10/30/16 00:30 98.2 68 18 119/69 99 10/29/16 23:30 98.8 69 16 123/73 98 10/29/16 23:05 99.3 75 20 97 10/29/16 19:04 100.8 111 20 115/66 96 Room Air I & O 10/30/16 07:00 Intake Total 1050 ml Output Total 400 ml Balance 650 ml Capillary Refill : Less Than 3 Seconds Labs Laboratory Tests 10/29/16 19:37: White Blood Count 25.9H, Red Blood Count 3.33L, Hemoglobin 11.3L, Hematocrit 33L , Mean Corpuscular Volume 99, Mean Corpuscular Hemoglobin 34, Mean Corpuscular Hemoglobin Concent 35, Red Cell Distribution Width 12.5, Platelet Count 245, Mean Platelet Volume 11.6H, Neutrophils (%) (Auto) 90H, Lymphocytes (%) (Auto) 6L, Monocytes (%) (Auto) 4, Eosinophils (%) (Auto) 0, Basophils (%) (Auto) 0, Neutrophils # (Auto) 23.3H, Lymphocytes # (Auto) 1.7, Monocytes # (Auto) 0.9, Eosinophils # (Auto) 0.0, Basophils # (Auto) 0.0, Neutrophils % (Manual) 76, Lymphocytes % (Manual) 6, Monocytes % (Manual) 1, Eosinophils % (Manual) 0, Basophils % (Manual) 0, Band Neutrophils 17, Blood Morphology Comment NORMAL, Prothrombin Time 13.8, INR Comment 1.1, Activated Partial Thromboplast Time 34, Sodium Level 139, Potassium Level 3.4L, Chloride Level 106, Carbon Dioxide Level 24, Anion Gap 9, Blood Urea Nitrogen 12, Creatinine 0.73, Estimat Glomerular Filtration Rate > 60, BUN/Creatinine Ratio 16, Glucose Level 121H, Lactic Acid Level 1.11, Calcium Level 8.8, Total Bilirubin 0.5, Aspartate Amino Transf (AST/SGOT) 14, Alanine Aminotransferase (ALT/SGPT) 17, Alkaline Phosphatase 91, Total Protein 5.8L, Albumin 3.4 10/29/16 19:54: Urine Color YELLOW, Urine Clarity CLEAR, Urine pH 8, Urine Specific [place] 1.010L, Urine Protein NEGATIVE, Urine Glucose (UA) NEGATIVE, Urine Ketones NEGATIVE, Urine Nitrite NEGATIVE, Urine Bilirubin NEGATIVE, Urine Urobilinogen NORMAL, Urine Leukocyte Esterase NEGATIVE, Urine RBC (Auto) NEGATIVE, Urine RBC RARE, Urine WBC RARE, Urine Crystals NONE, Urine Bacteria NONE, Urine Casts NONE , Urine Mucus SMALLH, Urine Culture Indicated NO 10/30/16 04:15: White Blood Count 17.0H, Red Blood Count 3.20L, Hemoglobin 10.6L, Hematocrit 32L , Mean Corpuscular Volume 100H, Mean Corpuscular Hemoglobin 33, Mean Corpuscular Hemoglobin Concent 33, Red Cell Distribution Width 12.9, Platelet Count 220, Mean Platelet Volume 11.6H, Neutrophils (%) (Auto) 87H, Lymphocytes ( %) (Auto) 8L, Monocytes (%) (Auto) 4, Eosinophils (%) (Auto) 0, Basophils (%) ( Auto) 0, Neutrophils # (Auto) 14.9H, Lymphocytes # (Auto) 1.4, Monocytes # (Auto ) 0.8, Eosinophils # (Auto) 0.0, Basophils # (Auto) 0.0, Sodium Level 139, Potassium Level 3.5L, Chloride Level 108H, Carbon Dioxide Level 22, Anion Gap 9 , Blood Urea Nitrogen 9, Creatinine 0.63, Estimat Glomerular Filtration Rate > 60, BUN/Creatinine Ratio 14, Glucose Level 98, Calcium Level 8.2L, Total Bilirubin 0.4, Aspartate Amino Transf (AST/SGOT) 14, Alanine Aminotransferase ( ALT/SGPT) 15, Alkaline Phosphatase 84, Total Protein 5.6L, Albumin 3.3 General Appearance: No Apparent Distress, WD/WN Respiratory: Lungs Clear Cardiovascular: Regular Rate, Rhythm Abdominal: normal bowel sounds Uterus: Tender (fundal tenderness) Comments Exam: Transabdominal ultrasound. Comparison: None. Findings: There is heterogeneous debris seen in the endometrium which measures 1.8 cm. There is the suggestion of minimal Doppler flow within this debris. There is mild thickening of the endometrium, as well. The uterus appears post gravid and measures 15 cm x 9.5 cm x 7.1 cm. There is no significant increased flow involving the uterus. Both ovaries were unable to be visualized due to bowel gas and size of uterus. Impression: 1: There is heterogeneous debris within the endometrium with suggestion of some Doppler flow. This may represent retained products of conception. Early endometritis also cannot be completely excluded. 2: The remainder of the uterus is unremarkable and post-gravid in appearance. 3: Both ovaries were unable to be visualized on this exam. Assessment/Plan Admission Diagnosis Diagnosis: PP 10 Days NVD Endometritis with suspected underlying sepsis Leukocytosis PCN allergy P: Continue Clinda, Gent, and Rocephin today WIll consider converting to oral regimen tomorrow If continues to improve, will consider dc tomorrow Clinical Quality Measures DVT/VTE Risk/Contraindication: Risk Factor Score Per Nursin RFS Level Per Nursing on Admit: 4+=Very High TOM JON DO October 30, 2016 10:23 am
[2016-10-31] VITALS: BP 139/77
[2016-10-31] MEDS: D5 1/2 NS W/KCL 20 MEQ/L 1,000 ML IV SCH ×2 (01:52→10:56)
[2016-10-31] MEDS: fentaNYL INJECTION 100 MCG/2 ML AMP IV PRN ×3 (03:39→12:45)
[2016-10-31 04:00] VITALS: BP 149/67
[2016-10-31 05:01] LABS: BASOPHILS % (AUTO) 0 % (0-10); EOSINOPHILS # (AUTO) 0.2 10^3/uL (0.0-0.3); EOSINOPHILS % (AUTO) 2 % (0-10); LYMPHOCYTES # (AUTO) 2.8 X 10^3 (1.0-4.0); LYMPHOCYTES % (AUTO) 27 % (12-44); MEAN CORPUSCULAR HEMOGLOBIN 34 PG (25-34); MEAN CORPUSCULAR HGB CONC 33 G/DL (32-36); MEAN CORPUSCULAR VOLUME 100 FL (80-99); MEAN PLATELET VOLUME 11.5 FL (7.4-10.4); MONOCYTES % (AUTO) 9 % (0-12); NEUTROPHILS # (AUTO) 6.4 X 10^3 (1.8-7.8); NEUTROPHILS % (AUTO) 62 % (42-75); PLATELET COUNT 218 10^3/uL (130-400); RED BLOOD COUNT 2.92 10^6/uL (4.35-5.85); RED CELL DISTRIBUTION WIDTH 12.8 % (10.0-14.5); WHITE BLOOD COUNT 10.4 10^3/uL (4.3-11.0)
[2016-10-31] MEDS: CATHETER FLUSH 10 ML SYR IV SCH ×3 (06:16→22:16)
[2016-10-31] MEDS: CLINDAMYCIN 900 MG/NS 50 ML IVPB IV SCH ×4 (06:22→14:17)
[2016-10-31 08:00] VITALS: BP 155/78
[2016-10-31] MEDS: GENTAMICIN 100 MG/50 ML IV SCH (08:07)
[2016-10-31] MEDS: DOCUSATE SODIUM 100 MG (COLACE) CAP PO SCH ×2 (08:16→20:18)
[2016-10-31] MEDS: cefTRIAXone INJECTION 1,000 MG in NS (IVPB) 50 ML IV SCH (09:56)
--- NOTE | 2016-10-31 11:04 | Progress Note-Standard ---
Standard Progress Note Progress Notes/Assess & Plan Date Seen 10/31/16 Assess & Plan/Chief Complaint PPD#11, HD#2 Raci denies complaints other than some abdominal pain this morning No fevers since yesterday afternoon Reports continued minimal lochia Nursing/pumping daughter who has been up to visit several times Eating/tolerating po intake Does have some constipation, wonders about a stool softener VS - Last 72 Hours, by Label 10/29/16 10/29/16 10/29/16 10/30/16 19:04 23:05 23:30 00:30 Temp 100.8 99.3 98.8 98.2 Pulse 111 75 69 68 Resp 20 20 16 18 B/P (MAP) 115/66 123/73 119/69 Pulse Ox 96 97 98 99 O2 Delivery Room Air 10/30/16 10/30/16 10/30/16 10/30/16 01:30 02:30 03:30 03:46 Temp 99.9 100.4 102.2 102.2 Pulse 64 63 70 Resp 20 20 18 B/P (MAP) 134/75 144/71 156/77 Pulse Ox 97 96 93 10/30/16 10/30/16 10/30/16 10/30/16 04:30 05:30 06:30 08:00 Temp 99.1 99.0 97.4 97.9 Pulse 57 58 51 Resp 18 16 20 B/P (MAP) 124/66 120/69 132/77 Pulse Ox 96 97 96 10/30/16 10/30/16 10/30/16 10/30/16 11:53 15:44 16:07 16:10 Temp 98.9 100.3 100.3 99.9 Pulse 87 63 Resp 16 16 B/P (MAP) 118/68 147/87 Pulse Ox 96 94 10/30/16 10/31/16 10/31/16 10/31/16 19:19 00:00 04:00 08:00 Temp 97.3 97.1 99.2 98.3 Pulse 50 53 59 55 Resp 16 14 18 20 B/P (MAP) 147/75 139/77 149/67 155/78 Pulse Ox 98 97 97 97 Gen: NAD Abd: Soft, moderately ttp LE: no edema Laboratory Tests Test 10/31/16 04:33 Range/Units White Blood Count 10.4 4.3-11.0 10^3/uL Red Blood Count 2.92 L 4.35-5.85 10^6/uL Hemoglobin 9.8 L 11.5-16.0 G/DL Hematocrit 29 L 35-52 % Mean Corpuscular Volume 100 H 80-99 FL Mean Corpuscular Hemoglobin 34 25-34 PG Mean Corpuscular Hemoglobin Concent 33 32-36 G/DL Red Cell Distribution Width 12.8 10.0-14.5 % Platelet Count 218 130-400 10^3/uL Mean Platelet Volume 11.5 H 7.4-10.4 FL Neutrophils (%) (Auto) 62 42-75 % Lymphocytes (%) (Auto) 27 12-44 % Monocytes (%) (Auto) 9 0-12 % Eosinophils (%) (Auto) 2 0-10 % Basophils (%) (Auto) 0 0-10 % Neutrophils # (Auto) 6.4 1.8-7.8 X 10^3 Lymphocytes # (Auto) 2.8 1.0-4.0 X 10^3 Monocytes # (Auto) 1.0 0.0-1.0 X 10^3 Eosinophils # (Auto) 0.2 0.0-0.3 10^3/uL Basophils # (Auto) 0.0 0.0-0.1 10^3/uL A/P: 26 y/o PPD#11 with endometritis Sepsis on admission - resolved Leukocytosis - now resolved Clinically improving. Has not had a technical fever > 100.4F since yesterday afternoon around 1600 however it was 100.3F and patient felt febrile. Will continue antbx until 24 hours after that time (1600 today) and then stop. If still afebrile in the AM, can d/c home. Continue rocephin/gentamicin/ clindamycin for now. Continue /pumping Colace added to regimen Discussed ultrasound with pt - EMS 1.8cm cannot r/o retained POC. However clinically picture is much more c/w endometritis. I do not think D&C is warranted at this time given her bleeding and appropriate response to antbx. Repeat CBC in AM Likely d/c home tomorrow once stable off antbx for almost 24 hours Labs Laboratory Tests 10/29/16 19:37 10/30/16 04:15 10/31/16 04:33 SHEREE DA SILVA MD October 31, 2016 11:04
--- NOTE | 2016-10-31 11:06 | Discharge Inst-Women's Service ---
Discharge Inst-Women's Serv Depart Medication/Instructions New, Converted or Re-Newed RX: RX on Chart Final Diagnosis endometritis, sepsis Consults/Follow Up Additional Follow Up: Yes Orders/Referrals 2-[address] Reyna Activity Activity: Activity as Tolerated NO SMOKING: NO SMOKING Nothing Inside Vagina: No Douching, No [place], No Tampons Diet Discharge Diet: No Restrictions Symptoms to Report to : Bleeding Excessive, Pain Increased, Fever Over 101 Degrees F, Pain/Pressure in Chest, Vaginal Bleeding Increase, Dizziness/Fainting , Nausea/Vomiting, Shortness of Breath For Any Problems or Questions: Contact Your Physician, Go to Emergency Room SHEREE REYNA MD October 31, 2016 11:06
[2016-10-31 12:00] VITALS: BP 173/80
[2016-10-31 16:00] VITALS: BP 154/73
[2016-10-31] MEDS: HYDROcodone/APAP 5 MG/325 MG (LORTAB) TAB PO PRN ×2 (16:32→21:50)
[2016-10-31 20:00] VITALS: BP 158/82
[2016-11-01] VITALS: BP 135/62
[2016-11-01 03:10] VITALS: BP 148/70
[2016-11-01] MEDS: HYDROcodone/APAP 5 MG/325 MG (LORTAB) TAB PO PRN ×2 (03:20→07:56)
[2016-11-01] MEDS: CATHETER FLUSH 10 ML SYR IV SCH (04:21)
[2016-11-01 04:27] LABS: BASOPHILS % (AUTO) 0 % (0-10); EOSINOPHILS # (AUTO) 0.4 10^3/uL (0.0-0.3); EOSINOPHILS % (AUTO) 4 % (0-10); LYMPHOCYTES # (AUTO) 3.9 X 10^3 (1.0-4.0); LYMPHOCYTES % (AUTO) 39 % (12-44); MEAN CORPUSCULAR HEMOGLOBIN 33 PG (25-34); MEAN CORPUSCULAR HGB CONC 33 G/DL (32-36); MEAN CORPUSCULAR VOLUME 100 FL (80-99); MEAN PLATELET VOLUME 11.5 FL (7.4-10.4); MONOCYTES # (AUTO) 0.8 X 10^3 (0.0-1.0); MONOCYTES % (AUTO) 8 % (0-12); NEUTROPHILS # (AUTO) 4.9 X 10^3 (1.8-7.8); NEUTROPHILS % (AUTO) 49 % (42-75); PLATELET COUNT 226 10^3/uL (130-400); RED BLOOD COUNT 3.13 10^6/uL (4.35-5.85); RED CELL DISTRIBUTION WIDTH 12.7 % (10.0-14.5)
[2016-11-01 07:47] VITALS: BP 130/64
[2016-11-01] MEDS: DOCUSATE SODIUM 100 MG (COLACE) CAP PO SCH (07:56)
--- NOTE | 2016-11-01 08:03 | Progress Note-Standard ---
Standard Progress Note Progress Notes/Assess & Plan Progress/Assessment & Plan Patient doing well. Afebrile since 10/30/16 off antibiotics. WBC normal. Will plan to discharge to home today without antibiotics Vital Sign - Last 12Hours 10/31/16 11/01/16 11/01/16 11/01/16 20:00 00:00 03:10 07:47 Temp 97.1 97.7 98.5 96.7 Pulse 52 54 52 55 Resp B/P (MAP) 158/82 135/62 148/70 130/64 Pulse Ox 99 98 96 98 Intake and Output 11/01/16 00:00 Intake Total 2806 ml Output Total 3575 ml Balance -769 ml Laboratory Tests Test 11/01/16 04:00 Range/Units White Blood Count 10.0 4.3-11.0 10^3/uL Red Blood Count 3.13 L 4.35-5.85 10^6/uL Hemoglobin 10.4 L 11.5-16.0 G/DL Hematocrit 31 L 35-52 % Mean Corpuscular Volume 100 H 80-99 FL Mean Corpuscular Hemoglobin 33 25-34 PG Mean Corpuscular Hemoglobin Concent 33 32-36 G/DL Red Cell Distribution Width 12.7 10.0-14.5 % Platelet Count 226 130-400 10^3/uL Mean Platelet Volume 11.5 H 7.4-10.4 FL Neutrophils (%) (Auto) 49 42-75 % Lymphocytes (%) (Auto) 39 12-44 % Monocytes (%) (Auto) 8 0-12 % Eosinophils (%) (Auto) 4 0-10 % Basophils (%) (Auto) 0 0-10 % Neutrophils # (Auto) 4.9 1.8-7.8 X 10^3 Lymphocytes # (Auto) 3.9 1.0-4.0 X 10^3 Monocytes # (Auto) 0.8 0.0-1.0 X 10^3 Eosinophils # (Auto) 0.4 H 0.0-0.3 10^3/uL Basophils # (Auto) 0.0 0.0-0.1 10^3/uL Assessment: Will discharge to home today. Follow up with Dr. Reyna. BASHIR SAMUELS DO November 01, 2016 08:03
== END 2016-11-01 09:35 | disposition home or self-care (01) | DRG 776 ==
LOC: EDUNIT# 18:56 → ER 18:59 → 4TH 22:19
PROVIDERS: ADMIT Obstetrics & Gynecology; ATTEND Obstetrics & Gynecology
DX: O86.12 Endometritis following delivery (principal); O99.63 Diseases of the digestive system complicating the puerperium; K59.00 Constipation, unspecified; O99.335 Smoking (tobacco) complicating the puerperium; F17.210 Nicotine dependence, cigarettes, uncomplicated
CPT/HCPCS: 36415; 71010; 76856; 80053; 81000; 83605; 85007; 85025; 85027; 85610; 85730; 87040; 96361; 96365; 96375

== ENCOUNTER 2017-05-15 16:39 | Emergency (ER) | payer MEDICAID, OTHER ==
[~2017-05-15] VITALS: Ht 154.9 cm; Wt 61.2 kg
[~2017-05-15 16:39] MED LIST changes: +FERR-74 PO
[2017-05-15] MEDS ORDERED: GUAI400T71 PO (17:03)
[2017-05-15] MEDS ORDERED: AZIT250T12 (17:03)
[2017-05-15] MEDS ORDERED: RT-ALBUTEROL SULF 2.5 MG/3 ML PRE-MIX VIAL INH STA (17:05)
--- NOTE | 2017-05-15 17:11 | ED Respiratory ---
General Chief Complaint: Cough/Cold/Flu Symptoms Stated Complaint: TROUBLE BREATHING;RUNNY NOSE Nursing Triage Note: ARRIVED VIA AMB TO ROOM 10. STATES SHE HAS BEEN SICK FOR A WHILE AND GOMEZ TO THE [facility] ON SATURDAY AND DX WITH A SINUS INFECTION. STATES SHE IS NOT BETTER AFTER BEING ON A ZPACK. COMPLAINS OF SOA ET COUGHING UP GREEN SPUTUM. Source: patient Exam Limitations: no limitations History of Present Illness Time seen by provider: 17:00 Initial Comments Patient presents by private conveyance with a chief complaint that she was diagnosed with sinusitis 3 days ago and put on azithromycin for it. If she is been having low-grade fevers since then of the 101.7 max. She has been using Tylenol Motrin she has not felt any improvement in her symptoms and now feels she is having some congestion subtle in her chest. She feels wheezy and tight of breath. She is a smoker usually three quarters pack a day but now is down to one quarter pack per day. She is breast-feeding and feels drained of any energy. She is not having any rash, nausea, vomiting, diarrhea, chest pain. She has no prior history of asthma or other lung disease. Allergies and Home Medications Allergies Coded Allergies: Penicillins (Verified Allergy, Unknown, 10/20/16) SEVERE FAMILY HX, SO PT HAS NEVER TAKEN. Home Medications Azithromycin 250 Mg Tablet, (Reported) Guaifenesin 400 Mg Tablet, 400 MG PO, (Reported) Constitutional: No chills, No diaphoresis, fever, malaise EENTM: No hearing loss, No ear pain Respiratory: cough, No phlegm, No short of breath Cardiovascular: No chest pain, No palpitations Gastrointestinal: No abdominal pain, No constipation, No diarrhea, No nausea, No vomiting Genitourinary: No discharge, No dysuria Skin: No pruritus, No rash Psychiatric/Neurological: Denies Headache, Denies Numbness, Denies Paresthesia Past Pgseuuf-Pqzphg-Mxkiea Hx Patient Social History Alcohol Use: Rarely Uses Recreational Drug Use: No Smoking Status: Never a Smoker Type Used: Cigarettes 2nd Hand Smoke Exposure: Yes Recent Foreign Travel: No Contact w/Someone Who Travel: No Recent Infectious Disease Expo: No Recent Hopitalizations: Yes (DELIVERY 10/20/16) Immunizations Up To Date Tetanus Booster (TDap): Less than 5yrs PED Vaccines UTD: Yes Seasonal Allergies Seasonal Allergies: No Surgeries History of Surgeries: Yes Surgeries: Adenoidectomy, Appendectomy, Tonsillectomy Respiratory History of Respiratory Disorde: No Currently Using CPAP: No Currently Using BIPAP: No Cardiovascular History of Cardiac Disorders: No Neurological History of Neurological Disord: No Reproductive System Hx Reproductive Disorders: No Sexually Transmitted Disease: No HIV/AIDS: No Genitourinary History of Genitourinary Disor: No Gastrointestinal History of Gastrointestinal Di: No Musculoskeletal History of Musculoskeletal Dis: No Endocrine History of Endocrine Disorders: No HEENT History of HEENT Disorders: No Cancer History of Cancer: No Psychosocial History of Psychiatric Problem: Yes Behavioral Health Disorders: Anxiety Integumentary History of Skin or Integumenta: No Blood Transfusions History of Blood Disorders: Yes (ANEMIA) Adverse Reaction to a Blood Tr: No Family Medical History Significant Family History: No Pertinent Family Hx Family Medial History: Diabetes mellitus (MOTHER FATHER) FH: cancer (MOTHER PGF) FH: heart disease (FATHER MGM PGM) Hypertension (MOTHER FATHER MGM PGM MGF PGF) Physical Exam Vital Signs Vital Sign - Last 12Hours 05/15/17 16:45 Temp 99.9 Pulse 91 Resp 18 B/P (MAP) 120/80 Pulse Ox 97 O2 Delivery Room Air Capillary Refill : Less Than 3 Seconds General Appearance: WD/WN, mild distress Eyes: Bilateral Eye Normal Inspection, Bilateral Eye PERRL, Bilateral Eye EOMI HEENT: PERRL/EOMI, normal ENT inspection, TMs normal, pharynx normal, other ( mild frontal sinus tenderness and maxillary sinuses are moderately tender to palpation. Left more than right. Left TMJ tender to palpation without crepitus on articulation.) Neck: non-tender, full range of motion, supple, normal inspection, lymphadenopathy (R), lymphadenopathy (L) (shotty anterior cervical chain lymphadenopathy. Bilateral.) Respiratory: chest non-tender, no respiratory distress, no accessory muscle use , wheezing (bilateral), expiration Cardiovascular: normal peripheral pulses, regular rate, rhythm Extremities: no pedal edema, normal capillary refill Neurologic/Psychiatric: alert, normal mood/affect, oriented x 3 Progress/Results/Core Measures Suspected Sepsis Recent Fever Within 48 Hours: Yes Infection Criteria Present: Documented Infection New/Unexplained Altered Menta: No Sepsis Screen: Possible Sepsis Risk Sepsis Diagnosis: SIRS Temperature:99.9 Pulse: 91 Respiratory Rate: 18 Blood Pressure 120 /80 Mean: 93 Results/Orders My Orders Orders - PALMER BOWEN Chest Pa/Lat (2 View) (05/15/17 17:05) Albuterol Pre-Mix Nebs (Rt) (Proventil (05/15/17 17:05) Svn Sm Volume Nebulizer Rt-Rfs (05/15/17 17:05) Vital Signs/I&O Vital Sign - Last 12Hours 05/15/17 05/15/17 16:45 17:23 Temp 99.9 Pulse 91 Resp 18 B/P (MAP) 120/80 Pulse Ox 97 98 O2 Delivery Room Air Room Air Capillary Refill : Less Than 3 Seconds Blood Pressure Mean: 93 Progress Note : Time: 17:12 Progress Note We'll give her a treatment of albuterol get a chest x-ray since she has some wheezing. It may be reasonable to switch her up from azithromycin to a cephalosporin although it may also be a little bit early to declare antibiotics failure of a macrolide at this time. Patient is unhappy with the azithromycin results and says she's used in the past and it worked much faster last time. I explained to her also may reasonable to consider this is a viral illness and no antibiotics will help. Omnicef is safe for breast-feeding and we can also have her get some probiotics. ECG Initial ECG Impression Date: May 15, 2017 Diagnostic Imaging Diagonstic Imaging: Xray Plain Films/CT/US/NM/MRI: chest Comments No acute cardio pulmonary processes noted a 2 view chest x-ray. VIA [facility], [place], [place] NAME: MARIS DIETZ Edgar Barnes [facility] REC#: [id number] PT STATUS: REG ER : 1990 PHYSICIAN: PALMER BOWEN MD ADMIT DATE: 05/15/17/ER Draft Date of Exam:05/15/17 CHEST PA/LAT (2 VIEW) INDICATION: Lower respiratory infection. PA and lateral chest. FINDINGS: Heart size and pulmonary vascularity are normal. Lungs are clear. There are no effusions or pneumothoraces. IMPRESSION: Negative chest. Dictated on workstation # [id number] Dict: 05/15/171725 Trans: 05/15/171728 [id number] Interpreted by: NICOLE COLLINS MD Electronically signed by: Reviewed: Reviewed by Me Departure Impression Impression: Primary Impression: Maxillary sinusitis, acute Qualified Codes: J01.00 - Acute maxillary sinusitis, unspecified Additional Impression: Bronchitis Disposition: HOME, SELF-CARE Condition: Improved Departure-Patient Inst. Decision time for Depature: 17:48 Referrals: [facility] (PCP) Primary Care Physician SHEREE DA SILVA MD (Family) Primary Care Physician Patient Instructions: Acute Bronchitis, Adult (DC) Add. Discharge Instructions: Drink lots and lots of fluids. Continue the antibiotics as prescribed. Return to the ER to begin to have fevers above 102.5 despite Tylenol and Motrin or intractable nausea and vomiting or shortness of breath. If you have shortness of breath or wheezing take 2 puffs of the albuterol every 4 hours as needed. Reduced how much you smoke or quit. Follow-up with primary care physician as needed. Use Tessalon Perles as needed for cough every 6 hours. All discharge instructions reviewed with patient and/or family. Voiced understanding. Scripts Albuterol Sulfate (PROAIR HFA) 1 Puff Puff 2 PUFF IH Q4H Y for SHORTNESS OF BREATH, #1 EACH 0 Refills 1 PUFF = 90 MCG Prov: PALMER BOWEN 05/15/17 Cefdinir (Cefdinir) 300 Mg Capsule 300 MG PO BID for 7 Days, #14 CAP 0 Refills Prov: PALMER BOWEN 05/15/17 Work/School Note: [employer]ing PALMER BOWEN May 15, 2017 17:11
--- NOTE | 2017-05-15 17:29 | Diagnostic Imaging Report ---
INDICATION: Lower respiratory infection. PA and lateral chest. FINDINGS: Heart size and pulmonary vascularity are normal. Lungs are clear. There are no effusions or pneumothoraces. IMPRESSION: Negative chest. Dictated by: Dictated on workstation # [id number]
[2017-05-15] MEDS ORDERED: CEFD300C3 PO (17:50)
[2017-05-15] MEDS ORDERED: RT-ALBUINH IH (17:50)
[2017-05-15 18:02] VITALS: BP 130/75
== END 2017-05-15 18:02 | disposition home or self-care (01) ==
LOC: EDUNIT# 16:39 → ER 16:41
DX: J01.00 Acute maxillary sinusitis, unspecified (principal); J40 Bronchitis, not specified as acute or chronic; F41.9 Anxiety disorder, unspecified; Z82.49 Family history of ischemic heart disease and other diseases of the circulatory system; Z77.22 Contact with and (suspected) exposure to environmental tobacco smoke (acute) (chronic); Z90.89 Acquired absence of other organs
CPT/HCPCS: 71020; 94640; 99282

== ENCOUNTER 2017-08-23 18:00 | Emergency (ER) | payer SELFPAY ==
[~2017-08-23] VITALS: Ht 154.9 cm; Wt 61.5 kg
[~2017-08-23 18:00] MED LIST changes: +AZIT250T12; +CEFD300C3 PO; -FERR-74 PO; +FERR325T18 PO; +GUAI400T71 PO; +RT-ALBUINH IH
[2017-08-23] MEDS ORDERED: NS IV 1000 ML 1,000 ML ONE (18:38)
[2017-08-23] MEDS ORDERED: ONDANSETRON 4 MG/2 ML (SDV) Z0FRAN ONE (18:38)
[2017-08-23] MEDS ORDERED: diphenhydrAMINE 50 MG/ML INJ (BENADRYL) IV STA (19:32)
[2017-08-23] MEDS ORDERED: fentaNYL INJECTION 100 MCG/2 ML AMP IVP STA (19:32)
--- NOTE | 2017-08-23 19:38 | ED Headache ---
General Chief Complaint: Head/Cervical Problems Stated Complaint: MIGRAINE Nursing Triage Note: CHEN times 24 hours, has taken motrin and tylenol Nursing Sepsis Screen: No Definite Risk History of Present Illness Date Seen by Provider: Aug 23, 2017 Time Seen by Provider: 19:20 Initial Comments 27 year old female presents for headache. She took Tylenol approximately 2 hours ago and ibuprofen approximately one hour ago with no relief of her symptoms. She's been treating it throughout the last 24 hours with Tylenol and ibuprofen, barely improving her symptoms. She has a history of getting migraines to this extent 1-2 times a year. She reports mild nausea and no vomiting. She had no aura prior to the headache starting. She denies any recent head trauma, sinus congestion or seizure activity. Timing/Duration: 24 hours Severity/Quality: moderate Location: frontal, occipital Prior Headaches/Recent Trauma: occasional headaches Modifying Factors: improves with cold therapy Associated Symptoms: No confusion, No fatigue, No facial pain, No fever/chills , No flushing, No loss of consciousness, nausea/vomiting, No nasal congestion, No nasal drainage, No numbness in legs/feet, No rash, No seizures, No sinus infection, No stiff neck, No vision changes, No weakness Allergies and Home Medications Allergies Coded Allergies: Penicillins (Verified Allergy, Unknown, 10/20/16) SEVERE FAMILY HX, SO PT HAS NEVER TAKEN. Home Medications Albuterol Sulfate 1 Puff Puff, 2 PUFF IH Q4H PRN for SHORTNESS OF BREATH 1 PUFF = 90 MCG Prescribed by: PALMER BOWEN on 05/15/171749 Cefdinir 300 Mg Capsule, 300 MG PO BID Prescribed by: PALMER BOWEN on 05/15/17 175 Patient Home Medication List Home Medication List Reviewed: Yes Constitutional: no symptoms reported, see HPI Eyes: See HPI, Photophobia Gastrointestinal: see HPI, No abdominal pain, No constipation, No diarrhea, nausea, No vomiting Psychiatric/Neurological: See HPI, Headache Past Rmvnhzl-Qnosaa-Gkqhgg Hx Patient Social History Alcohol Use: Occasionally Uses Recreational Drug Use: No Type Used: Cigarettes 2nd Hand Smoke Exposure: Yes Recent Foreign Travel: No Contact w/Someone Who Travel: No Recent Infectious Disease Expo: No Recent Hopitalizations: No (DELIVERY 10/20/16) Physical Abuse: No Sexual Abuse: No Mistreated: No Fear: No Immunizations Up To Date Tetanus Booster (TDap): Less than 5yrs PED Vaccines UTD: Yes Seasonal Allergies Seasonal Allergies: No Surgeries History of Surgeries: Yes Surgeries: Adenoidectomy, Appendectomy, Tonsillectomy Respiratory History of Respiratory Disorde: No Currently Using CPAP: No Currently Using BIPAP: No Cardiovascular History of Cardiac Disorders: No Neurological History of Neurological Disord: No Reproductive System Hx Reproductive Disorders: No Sexually Transmitted Disease: No HIV/AIDS: No Genitourinary History of Genitourinary Disor: No Gastrointestinal History of Gastrointestinal Di: No Musculoskeletal History of Musculoskeletal Dis: No Endocrine History of Endocrine Disorders: No HEENT History of HEENT Disorders: No Cancer History of Cancer: No Psychosocial History of Psychiatric Problem: Yes Behavioral Health Disorders: Anxiety Suicide Risk Score: 0 Integumentary History of Skin or Integumenta: No Blood Transfusions History of Blood Disorders: Yes (ANEMIA) Adverse Reaction to a Blood Tr: No Reviewed Nursing Assessment Reviewed/Agree w Nursing PMH: Yes Family Medical History Significant Family History: No Pertinent Family Hx Family Medial History: Diabetes mellitus (MOTHER FATHER) FH: cancer (MOTHER PGF) FH: heart disease (FATHER MGM PGM) Hypertension (MOTHER FATHER MGM PGM MGF PGF) Physical Exam Vital Signs Vital Signs - First Documented 08/23/17 18:30 Temp 98.0 Pulse 69 Resp 18 B/P (MAP) 106/79 (88) Pulse Ox 100 Capillary Refill : Less Than 3 Seconds General Appearance: WD/WN, no apparent distress HEENT: PERRL/EOMI, normal ENT inspection, TMs normal, pharynx normal Neck: non-tender, full range of motion, supple, normal inspection Cardiovascular: normal peripheral pulses, regular rate, rhythm, no murmur Respiratory: chest non-tender, lungs clear, normal breath sounds, no respiratory distress Gastrointestinal: normal bowel sounds, non tender, soft Extremities: normal range of motion, non-tender, no pedal edema, no calf tenderness, normal capillary refill Psychiatric: alert, oriented x 3 Crainal Nerves: normal hearing, normal speech, PERRL Coordination/Gait: normal finger to nose, normal gait Motor/Sensory: no motor deficit, no sensory deficit, no pronator drift Skin: normal color, warm/dry Lymphatic: no adenopathy Progress/Results/Core Measures Results/Orders My Orders Orders - SAURAV LOBATO Urine Bedside (08/23/17 19:02) Fentanyl Injection (Sublimaze Injection (08/23/17 19:32) Diphenhydramine Injection (Benadryl Inje (08/23/17 19:32) Medications Given in ED Current Medications Medications Dose Ordered Sig/Kianna Route Start Time Stop Time Status Last Admin Dose Admin Ondansetron HCl 4 mg STK-MED ONCE .ROUTE 08/23/17 18:38 08/23/17 18:42 DC 08/23/17 18:50 4 MG Sodium Chloride 1,000 ml @ ud STK-MED ONCE .ROUTE 08/23/17 18:38 08/23/17 18:42 DC 08/23/17 18:50 1,000 MLS/HR Vital Signs/I&O Vital Sign - Last 12Hours 08/23/17 08/23/17 18:30 20:35 Temp 98.0 Pulse 69 71 Resp 18 18 B/P (MAP) 106/79 (88) 116/62 Pulse Ox 100 99 Blood Pressure Mean: 88 Progress Note : Time: 19:20 Progress Note Initial evaluation completed, recommended normal saline 1 L IV, Benadryl 50 mg IV, Zofran 4 mg IV, and fentanyl 25 g IV. 2014 patient reports improvement in her symptoms, no further nausea, headache is resolved. His charge instructions and return precautions reviewed with the patient. All questions answered. Departure Impression Impression: Primary Impression: Migraine Qualified Codes: G43.019 - Migraine without aura, intractable, without status migrainosus Disposition: 01 HOME, SELF-CARE Condition: Improved Departure-Patient Inst. Decision time for Depature: 20:15 Referrals: [facility] (PCP) Primary Care Physician SHEREE DA SILVA MD (Family) Primary Care Physician Patient Instructions: Migraine Headache (DC) Add. Discharge Instructions: Take 2 Excedrin migraine at initial onset of headache, full bottle of water. Rest in dark room and headache is severe. Return to emergency Department if headache returns, visual changes, seizure activity, vomiting, or new problems. Follow-up with your primary care provider if symptoms are not improving. All discharge instructions reviewed with patient and/or family. Voiced understanding. Copy Copies To 1: SHEREE DA SILVA MD, AMY ARNP Aug 23, 2017 19:38
[2017-08-23 20:35] VITALS: BP 116/62
--- OUTSIDE RECORDS SUMMARY | 2017-08-25 06:31 | XMS REPORT ---
Author Author FAHAD HOGUE Organization [facility] Address [address] [place] [address] Care Team Providers Care Light Cleaner Name Role Phone MYKEL FAHAD Unavailable PROBLEMS Type Condition ICD9-CM Code AZR27-KS Code Onset Dates Condition Status SNOMED Code Problem Counseling on substance use and abuse V65.42 Active 563802286 Problem Routine general medical examination at health care facility V70.0 Active 229183554 Problem General counseling for prescription of oral contraceptives V25.01 Active 662960024757729 Problem Screening for malignant neoplasm of the cervix V76.2 Active 355195849 Problem Screening examination for venereal disease V74.5 Active 278295668 Problem Other specified headache syndromes 339.89 Active 35303251 Problem Unspecified sinusitis (chronic) 473.9 Active 12965839 Problem Lumbago 724.2 Active 897464119 Problem Urinary frequency 788.41 Active 453145428 Problem Dysfunction of Eustachian tube 381.81 Active 23476874 Problem Unspecified vaginitis and vulvovaginitis 616.10 Active 356080164 ALLERGIES Substance Reaction Event Type Date Status Penicillin G Sodium Unknown Drug Allergy Jul, Active SOCIAL HISTORY Never Assessed PLAN OF CARE Activity Details Follow Up prn Reason: VITAL SIGNS Height 62 in 2016-08-06 Weight 145.8 lbs 2016-08-06 Temperature 97.8 degrees Fahrenheit 2016-08-06 Heart Rate 88 bpm 2016-08-06 Respiratory Rate 18 2016-08-06 BMI 26.66 kg/m2 2016-08-06 Blood pressure systolic 118 mmHg 2016-08-06 Blood pressure diastolic 70 mmHg 2016-08-06 MEDICATIONS Medication Instructions Dosage Frequency Start Date End Date Duration Status 28-0.8 MG Active Iron 325 (65 Fe) MG Orally Once a day 1 tablet 24h Active RESULTS Name Result Date Reference Range STREP A (IN HOUSE) 2016-08-06 STREP A negative Control + Lot # [id number] Exp date mar 04 PROCEDURES Procedure Date Ordered Result Body Site STREP A ASSAY W/OPTIC Aug 06, 2016 IMMUNIZATIONS No Known Immunizations MEDICAL (GENERAL) HISTORY Type Description Date Medical History Headaches Medical History Substance abuse Surgical History tonsillectomy Surgical History appendectomy Hospitalization History sepsis, three days hospital stay after giving 10/2016
--- OUTSIDE RECORDS SUMMARY | 2017-08-25 06:31 | XMS REPORT ---
Author Author DANIEL RIVERA Organization [facility] Address [address] [place] [address] Care Team Providers Care Slot Router Name Role Phone DANIEL RIVERA Unavailable PROBLEMS Type Condition ICD9-CM Code JCY08-[id number] Code Onset Dates Condition Status SNOMED Code Problem Counseling on substance use and abuse V65.42 Active 324090081 Problem Routine general medical examination at health care facility V70.0 Active 824417774 Problem General counseling for prescription of oral contraceptives V25.01 Active 348797237144246 Problem Screening for malignant neoplasm of the cervix V76.2 Active 894701414 Problem Screening examination for venereal disease V74.5 Active 591932571 Problem Other specified headache syndromes 339.89 Active 04565336 Problem Unspecified sinusitis (chronic) 473.9 Active 31906603 Problem Lumbago 724.2 Active 186785604 Problem Urinary frequency 788.41 Active 060835574 Problem Dysfunction of Eustachian tube 381.81 Active 69034341 Problem Unspecified vaginitis and vulvovaginitis 616.10 Active 803126166 ALLERGIES Substance Reaction Event Type Date Status Penicillin G Sodium Unknown Drug Allergy May, Active SOCIAL HISTORY No smoking Hx information available PLAN OF CARE Activity Details Follow Up 2 Weeks Reason:if s/s not improving VITAL SIGNS Height 62 in 2016-06-13 Weight 141 lbs 2016-06-13 Temperature 98.4 degrees Fahrenheit 2016-06-13 Heart Rate 72 bpm 2016-06-13 Respiratory Rate 16 2016-06-13 BMI 25.79 kg/m2 2016-06-13 Blood pressure systolic 122 mmHg 2016-06-13 Blood pressure diastolic 68 mmHg 2016-06-13 MEDICATIONS Medication Instructions Dosage Frequency Start Date End Date Duration Status Clindamycin HCl 300 MG Orally every 8 hrs 1 capsule 8h May,Jun 10 days Active 28-0.8 MG Active RESULTS No Results PROCEDURES Procedure Date Ordered Related Diagnosis Body Site Office Visit, Est Pt., Level 3 Jun 13, 2016 IMMUNIZATIONS No Known Immunizations
--- OUTSIDE RECORDS SUMMARY | 2017-08-25 06:34 | XMS REPORT | Continuity of Care Document ---
Author Author [facility] Organization [facility] Address Unknown Phone Unavailable Allergies Active Description Code Type Severity Reaction Onset Reported/Identified Relationship to Patient Clinical Status Yes Penicillins Drug Allergy 10/26/2008 Yes Penicillins Drug Allergy N/A N/A 10/26/2008 Yes No Known Drug Allergies [id number] Drug Allergy Unknown N/A 09/21/2012 Yes Penicillins [id number] Drug Allergy Unknown N/A 10/20/2016 Medications There is no data. Problems Date Dx Coded Attending Type Code Diagnosis Diagnosed By 10/26/2008 626.4 Irregular Length Of Menstrual Periods 10/26/2008 V25.40 Visit For: Contraceptive Surveillance 10/26/2008 V69.2 Sexually Active Without Practicing 'safer Sex' 10/26/2008 PANKAJ IBANEZ DO 626.4 Irregular Length Of Menstrual Periods 10/26/2008 PANKAJ IBANEZ DO V25.40 Visit For: Contraceptive Surveillance 10/26/2008 PANKAJ IBANEZ DO V69.2 Sexually Active Without Practicing 'safer Sex' 10/26/2008 626.4 Irregular Length Of Menstrual Periods 10/26/2008 V25.40 Visit For: Contraceptive Surveillance 10/26/2008 V69.2 Sexually Active Without Practicing 'safer Sex' 10/26/2008 626.4 Irregular Length Of Menstrual Periods 10/26/2008 V25.40 Visit For: Contraceptive Surveillance 10/26/2008 V69.2 Sexually Active Without Practicing 'safer Sex' 10/26/2008 626.4 Irregular Length Of Menstrual Periods 10/26/2008 V25.40 Visit For: Contraceptive Surveillance 10/26/2008 V69.2 Sexually Active Without Practicing 'safer Sex' 10/26/2008 JONAS RODRIGUES APRN 626.4 Irregular Length Of Menstrual Periods 10/26/2008 JONAS RODRIGUES APRN V25.40 Visit For: Contraceptive Surveillance 10/26/2008 JONAS RODRIGUES APRN V69.2 Sexually Active Without Practicing 'safer Sex' 10/26/2008 YAN TURF KEEPER, ALINA S 626.4 Irregular Length Of Menstrual Periods 10/26/2008 YAN TURF KEEPER, ALINA S V25.40 Visit For: Contraceptive Surveillance 10/26/2008 YAN TURF KEEPER, ALINA S V69.2 Sexually Active Without Practicing 'safer Sex' 10/26/2008 YAN TURF KEEPER, ALINA S 626.4 Irregular Length Of Menstrual Periods 10/26/2008 YAN TURF KEEPER, ALINA S V25.40 Visit For: Contraceptive Surveillance 10/26/2008 YAN TURF KEEPER, ALINA S V69.2 Sexually Active Without Practicing 'safer Sex' 10/26/2008 YAN TURF KEEPER, ALINA S 626.4 Irregular Length Of Menstrual Periods 10/26/2008 YAN TURF KEEPER, ALINA S V25.40 Visit For: Contraceptive Surveillance 10/26/2008 YAN TURF KEEPER, ALINA S V69.2 Sexually Active Without Practicing 'safer Sex' 10/26/2008 MADL TURF KEEPER, JOSIE L 626.4 Irregular Length Of Menstrual Periods 10/26/2008 MADL TURF KEEPER, JOSIE L V25.40 Visit For: Contraceptive Surveillance 10/26/2008 MADL TURF KEEPER, JOSIE L V69.2 Sexually Active Without Practicing 'safer Sex' 10/26/2008 IBANEZ DO PANKAJ K 626.4 Irregular Length Of Menstrual Periods 10/26/2008 IBANEZ DO PANKAJ K V25.40 Visit For: Contraceptive Surveillance 10/26/2008 IBANEZ DO PANKAJ K V69.2 Sexually Active Without Practicing 'safer Sex' 05/27/2009 626.0 ABSENCE OF MENSTRUATION 05/27/2009 IBANEZ DO PANKAJ K 626.0 ABSENCE OF MENSTRUATION 05/27/2009 626.0 ABSENCE OF MENSTRUATION 05/27/2009 626.0 ABSENCE OF MENSTRUATION 05/27/2009 626.0 ABSENCE OF MENSTRUATION 05/27/2009 JONAS RODRIGUES APRN 626.0 ABSENCE OF MENSTRUATION 05/27/2009 YAN TURF KEEPER, ALINA S 626.0 ABSENCE OF MENSTRUATION 05/27/2009 YAN IYERN ALINA S 626.0 ABSENCE OF MENSTRUATION 05/27/2009 YAN TAYLOR ALINA S 626.0 ABSENCE OF MENSTRUATION 05/27/2009 JOSIE OROZCO APRN L 626.0 ABSENCE OF MENSTRUATION 05/27/2009 PANKAJ IBANEZ DO K 626.0 ABSENCE OF MENSTRUATION 06/08/2009 845.10 Foot Sprain Left 06/08/2009 PANKAJ IBANEZ DO K 845.10 Foot Sprain Left 06/08/2009 845.10 Foot Sprain Left 06/08/2009 845.10 Foot Sprain Left 06/08/2009 845.10 Foot Sprain Left 06/08/2009 SAMANTHA RODRIGUES APRNIA R 845.10 Foot Sprain Left 06/08/2009 ROBINSON HEREDIA APRNNDA S 845.10 Foot Sprain Left 06/08/2009 ROBINSON HEREDIA APRNNDA S 845.10 Foot Sprain Left 06/08/2009 ROBINSON HEREDIA APRNNDA S 845.10 Foot Sprain Left 06/08/2009 JONES OROZCO APRNA L 845.10 Foot Sprain Left 06/08/2009 UMANG IBANEZ DOA K 845.10 Foot Sprain Left 08/16/2009 V72.31 Routine Pelvic Exam 08/16/2009 PANKAJ IBANEZ DO K V72.31 Routine Pelvic Exam 08/16/2009 V72.31 Routine Pelvic Exam 08/16/2009 V72.31 Routine Pelvic Exam 08/16/2009 V72.31 Routine Pelvic Exam 08/16/2009 JONAS RODRIGUES APRN R V72.31 Routine Pelvic Exam 08/16/2009 ROBINSON HEREDIA APRNNDA S V72.31 Routine Pelvic Exam 08/16/2009 YANMINDA TAYLOR ALINA S V72.31 Routine Pelvic Exam 08/16/2009 ROBINSON HEREDIA APRNNDA S V72.31 Routine Pelvic Exam 08/16/2009 JONES OROZCO APRNA L V72.31 Routine Pelvic Exam 08/16/2009 PANKAJ IBANEZ DO K V72.31 Routine Pelvic Exam 08/23/2009 386.10 VERTIGO, PERIPHERAL UNSPECIFIED 08/23/2009 PANKAJ IBANEZ DO K 386.10 VERTIGO, PERIPHERAL UNSPECIFIED 08/23/2009 386.10 VERTIGO, PERIPHERAL UNSPECIFIED 08/23/2009 386.10 VERTIGO, PERIPHERAL UNSPECIFIED 08/23/2009 386.10 VERTIGO, PERIPHERAL UNSPECIFIED 08/23/2009 JONAS RODRIGUES APRN R 386.10 VERTIGO, PERIPHERAL UNSPECIFIED 08/23/2009 YAN TURF KEEPERROBINSONALINA S 386.10 VERTIGO, PERIPHERAL UNSPECIFIED 08/23/2009 YAN TURF KEEPERROBINSONALINA S 386.10 VERTIGO, PERIPHERAL UNSPECIFIED 08/23/2009 YAN TURF KEEPERROBINSONALINA S 386.10 VERTIGO, PERIPHERAL UNSPECIFIED 08/23/2009 PAM TURF KEEPERJOSIE Anguiano L 386.10 VERTIGO, PERIPHERAL UNSPECIFIED 08/23/2009 PANKAJ IBANEZ DO K 386.10 VERTIGO, PERIPHERAL UNSPECIFIED 10/26/2009 477.9 RHINITIS 10/26/2009 PANKAJ IBANEZ DO K 477.9 ALLERGIC RHINITIS 10/26/2009 477.9 RHINITIS 10/26/2009 477.9 ALLERGIC RHINITIS 10/26/2009 477.9 ALLERGIC RHINITIS 10/26/2009 JONAS RODRIGUES APRN R 477.9 ALLERGIC RHINITIS 10/26/2009 YAN TURF KEEPER, ALINA S 477.9 ALLERGIC RHINITIS 10/26/2009 YAN TURF KEEPERROBINSONALINA S 477.9 ALLERGIC RHINITIS 10/26/2009 YAN TURF KEEPERROBINSONALINA S 477.9 ALLERGIC RHINITIS 10/26/2009 JOSIE OROZCO APRN L 477.9 ALLERGIC RHINITIS 10/26/2009 IBANEZ UMANG LIGHTA K 477.9 ALLERGIC RHINITIS 12/19/2009 924.01 Contusion Of , Hip 12/19/2009 PANKAJ IBANEZ DO K 924.01 Contusion Of, Hip 12/19/2009 924.01 Contusion Of , Hip 12/19/2009 924.01 Contusion Of , Hip 12/19/2009 924.01 Contusion Of , Hip 12/19/2009 JONAS RODRIGUES APRN R 924.01 Contusion Of, Hip 12/19/2009 MITCH HEREDIA APRNA S 924.01 Contusion Of, Hip 12/19/2009 MITCH HEREDIA APRNA S 924.01 Contusion Of, Hip 12/19/2009 ROBINSON HEREDIA APRNNDA S 924.01 Contusion Of, Hip 12/19/2009 JOSIE OROZCO APRN L 924.01 Contusion Of, Hip 12/19/2009 UMANG IBANEZ DOA K 924.01 Contusion Of, Hip 12/28/2009 788.1 Dysuria 12/28/2009 SHAMAR LIGHTPANKAJ K 788.1 Dysuria 12/28/2009 788.1 Dysuria 12/28/2009 788.1 Dysuria 12/28/2009 788.1 Dysuria 12/28/2009 SAMANTHA RODRIGUES APRNIA R 788.1 Dysuria 12/28/2009 ROBINSON HEREDIA APRNNDA S 788.1 Dysuria 12/28/2009 YAN TAYLOR ALINA S 788.1 Dysuria 12/28/2009 ROBINSON HEREDIA APRNNDA S 788.1 Dysuria 12/28/2009 JOSIE OROZCO APRN L 788.1 Dysuria 12/28/2009 SHAMAR LIGHTPANKAJ K 788.1 Dysuria 04/19/2010 305.1 Tobacco Abuse 04/19/2010 465.9 Upper Respiratory Infection 04/19/2010 IBANEZ PANKAJ LIGHT K 305.1 Tobacco Abuse 04/19/2010 IBANEZ PANKAJ LIGHT K 465.9 Upper Respiratory Infection 04/19/2010 305.1 Tobacco Abuse 04/19/2010 465.9 Upper Respiratory Infection 04/19/2010 305.1 Tobacco Abuse 04/19/2010 465.9 Upper Respiratory Infection 04/19/2010 305.1 Tobacco Abuse 04/19/2010 465.9 Upper Respiratory Infection 04/19/2010 SAMANTHA RODRIGUES APRNIA R 305.1 Tobacco Abuse 04/19/2010 WAQAR RODRIGUES APRNRICIA R 465.9 Upper Respiratory Infection 04/19/2010 YAN TAYLOR ALINA S 305.1 Tobacco Abuse 04/19/2010 YAN TAYLOR ALINA S 465.9 Upper Respiratory Infection 04/19/2010 YAN TAYLOR ALINA S 305.1 Tobacco Abuse 04/19/2010 YAN TAYLOR ALINA S 465.9 Upper Respiratory Infection 04/19/2010 YAN TURF KEEPER, ALINA S 305.1 Tobacco Abuse 04/19/2010 YAN TURF KEEPER, ALINA S 465.9 Upper Respiratory Infection 04/19/2010 MADL TURF KEEPER, JOSIE L 305.1 Tobacco Abuse 04/19/2010 MADL TURF KEEPER, JOSIE L 465.9 Upper Respiratory Infection 04/19/2010 IBANEZ DO PANKAJ K 305.1 Tobacco Abuse 04/19/2010 IBANEZ DO PANKAJ K 465.9 Upper Respiratory Infection 06/20/2010 V15.09 PERSONAL HISTORY OF OTHER ALLERGY OTHER THAN TO MEDICINAL AGENTS 06/20/2010 V65.45 Std Counseling 06/20/2010 V74.5 Std Screen 06/20/2010 IBANEZ DO PANKAJ K V15.09 PERSONAL HISTORY OF OTHER ALLERGY OTHER THAN TO MEDICINAL AGENTS 06/20/2010 IBANEZ DO, PANKAJ K V65.45 Std Counseling 06/20/2010 IBANEZ DO PANKAJ K V74.5 Std Screen 06/20/2010 V15.09 PERSONAL HISTORY OF OTHER ALLERGY OTHER THAN TO MEDICINAL AGENTS 06/20/2010 V65.45 Std Counseling 06/20/2010 V74.5 Std Screen 06/20/2010 V15.09 PERSONAL HISTORY OF OTHER ALLERGY OTHER THAN TO MEDICINAL AGENTS 06/20/2010 V65.45 Std Counseling 06/20/2010 V74.5 Std Screen 06/20/2010 V15.09 PERSONAL HISTORY OF OTHER ALLERGY OTHER THAN TO MEDICINAL AGENTS 06/20/2010 V65.45 Std Counseling 06/20/2010 V74.5 Std Screen 06/20/2010 SAMANTHA RODRIGUES APRNIA R V15.09 PERSONAL HISTORY OF OTHER ALLERGY OTHER THAN TO MEDICINAL AGENTS 06/20/2010 WAQAR RODRIGUES APRNRICIA R V65.45 Std Counseling 06/20/2010 RAVI TAYLOR JONAS R V74.5 Std Screen 06/20/2010 YAN TURF KEEPER, ALINA S V15.09 PERSONAL HISTORY OF OTHER ALLERGY OTHER THAN TO MEDICINAL AGENTS 06/20/2010 YAN TURF KEEPER, ALINA S V65.45 Std Counseling 06/20/2010 YAN TURF KEEPER, ALINA S V74.5 Std Screen 06/20/2010 YAN TURF KEEPER, ALINA S V15.09 PERSONAL HISTORY OF OTHER ALLERGY OTHER THAN TO MEDICINAL AGENTS 06/20/2010 YAN TURF KEEPER, ALINA S V65.45 Std Counseling 06/20/2010 YAN TURF KEEPER, ALINA S V74.5 Std Screen 06/20/2010 YAN TURF KEEPER, ALINA S V15.09 PERSONAL HISTORY OF OTHER ALLERGY OTHER THAN TO MEDICINAL AGENTS 06/20/2010 YAN TURF KEEPER, ALINA S V65.45 Std Counseling 06/20/2010 YAN TURF KEEPER, ALINA S V74.5 Std Screen 06/20/2010 MADL TURF KEEPER, JOSIE L V15.09 PERSONAL HISTORY OF OTHER ALLERGY OTHER THAN TO MEDICINAL AGENTS 06/20/2010 MADL TURF KEEPER, JOSIE L V65.45 Std Counseling 06/20/2010 MADL TURF KEEPER, JOSIE L V74.5 Std Screen 06/20/2010 SHAMAR UMANG LIGHTA K V15.09 PERSONAL HISTORY OF OTHER ALLERGY OTHER THAN TO MEDICINAL AGENTS 06/20/2010 UMANG IBANEZ DOA K V65.45 Std Counseling 06/20/2010 SHAMAR LIGHT PANKAJ K V74.5 Std Screen 09/11/2010 381.01 Otitis Media , Acute Serous 09/11/2010 466.0 Bronchitis, Acute 09/11/2010 SHAMAR LIGHT PANKAJ K 381.01 Otitis Media, Acute Serous 09/11/2010 UMANG IBANEZ DOA K 466.0 Bronchitis, Acute 09/11/2010 381.01 Otitis Media , Acute Serous 09/11/2010 466.0 Bronchitis, Acute 09/11/2010 381.01 Otitis Media , Acute Serous 09/11/2010 466.0 Bronchitis, Acute 09/11/2010 381.01 Otitis Media , Acute Serous 09/11/2010 466.0 Bronchitis, Acute 09/11/2010 RODRIGUES TURF KEEPER, JONAS R 381.01 Otitis Media, Acute Serous 09/11/2010 RODRIGUES TURF KEEPER, JONAS R 466.0 Bronchitis, Acute 09/11/2010 YAN TURF KEEPER, ALINA S 381.01 Otitis Media, Acute Serous 09/11/2010 YAN TURF KEEPER, ALINA S 466.0 Bronchitis, Acute 09/11/2010 YAN TURF KEEPER, ALINA S 381.01 Otitis Media, Acute Serous 09/11/2010 YAN TURF KEEPER, ALINA S 466.0 Bronchitis, Acute 09/11/2010 YAN TURF KEEPER, ALINA S 381.01 Otitis Media, Acute Serous 09/11/2010 YAN TURF KEEPER, ALINA S 466.0 Bronchitis, Acute 09/11/2010 MADL TURF KEEPER, JOSIE L 381.01 Otitis Media, Acute Serous 09/11/2010 MADL TURF KEEPER, JOSIE L 466.0 Bronchitis, Acute 09/11/2010 IBANEZ DO, PANKAJ K 381.01 Otitis Media, Acute Serous 09/11/2010 IBANEZ DO, PANKAJ K 466.0 Bronchitis, Acute 10/09/2010 300.00 ANXIETY UNSPEC 10/09/2010 682.9 Cellulitis And Abscess Of Unspecified Sites 10/09/2010 IBANEZ DO, PANKAJ K 300.00 ANXIETY UNSPEC 10/09/2010 IBANEZ DO, PANKAJ K 682.9 Cellulitis And Abscess Of Unspecified Sites 10/09/2010 300.00 ANXIETY UNSPEC 10/09/2010 682.9 Cellulitis And Abscess Of Unspecified Sites 10/09/2010 300.00 ANXIETY UNSPEC 10/09/2010 682.9 Cellulitis And Abscess Of Unspecified Sites 10/09/2010 300.00 ANXIETY UNSPEC 10/09/2010 682.9 Cellulitis And Abscess Of Unspecified Sites 10/09/2010 RAVI TURF KEEPER, JONAS R 300.00 ANXIETY UNSPEC 10/09/2010 RAVI TURF KEEPER, JONAS R 682.9 Cellulitis And Abscess Of Unspecified Sites 10/09/2010 YAN TURF KEEPER, ALINA S 300.00 ANXIETY UNSPEC 10/09/2010 YAN TURF KEEPER, ALINA S 682.9 Cellulitis And Abscess Of Unspecified Sites 10/09/2010 YAN TURF KEEPER, ALINA S 300.00 ANXIETY UNSPEC 10/09/2010 YAN TURF KEEPER, ALINA S 682.9 Cellulitis And Abscess Of Unspecified Sites 10/09/2010 YAN TURF KEEPER, ALINA S 300.00 ANXIETY UNSPEC 10/09/2010 YAN TURF KEEPER, ALINA S 682.9 Cellulitis And Abscess Of Unspecified Sites 10/09/2010 MADL TURF KEEPERJONESA L 300.00 ANXIETY UNSPEC 10/09/2010 MADL TURF KEEPERDESMONDJOSIE L 682.9 Cellulitis And Abscess Of Unspecified Sites 10/09/2010 IBANEZ PANKAJ LIGHT K 300.00 ANXIETY UNSPEC 10/09/2010 SHAMAR DO PANKAJ K 682.9 Cellulitis And Abscess Of Unspecified Sites 02/24/2011 Ot 599.0 URIN TRACT INFECTION NOS 02/24/2011 Ot 788.1 DYSURIA 02/27/2011 599.0 Urinary Tract Infection 02/27/2011 IBANEZ PANKAJ LIGHT K 599.0 Urinary Tract Infection 02/27/2011 599.0 Urinary Tract Infection 02/27/2011 599.0 Urinary Tract Infection 02/27/2011 599.0 Urinary Tract Infection 02/27/2011 JONAS RODRIGUES APRN R 599.0 Urinary Tract Infection 02/27/2011 MITCH HEREDIA APRNA S 599.0 Urinary Tract Infection 02/27/2011 MITCH HEREDIA APRNA S 599.0 Urinary Tract Infection 02/27/2011 ROBINSON HEREDIA APRNNDA S 599.0 Urinary Tract Infection 02/27/2011 JOSIE OROZCO APRN 599.0 Urinary Tract Infection 02/27/2011 SHAMAR PNAKAJ LIGHT K 599.0 Urinary Tract Infection 06/02/2011 461.9 Sinusitis Acute 06/02/2011 V65.42 Counseling - Smoking Cessation 06/02/2011 PANKAJ IBANEZ DO K 461.9 Sinusitis Acute 06/02/2011 PANKAJ IBANEZ DO K V65.42 Counseling - Smoking Cessation 06/02/2011 461.9 Sinusitis Acute 06/02/2011 V65.42 Counseling - Smoking Cessation 06/02/2011 461.9 Sinusitis Acute 06/02/2011 V65.42 Counseling - Smoking Cessation 06/02/2011 461.9 Sinusitis Acute 06/02/2011 V65.42 Counseling - Smoking Cessation 06/02/2011 JONAS RODRIGUES APRN R 461.9 Sinusitis Acute 06/02/2011 JONAS RODRIGUES APRN R V65.42 Counseling - Smoking Cessation 06/02/2011 ROBINSON HEREDIA APRNNDA S 461.9 Sinusitis Acute 06/02/2011 ROBINSON HEREDIA APRNNDA S V65.42 Counseling - Smoking Cessation 06/02/2011 ROBINSON HEREDIA APRNNDA S 461.9 Sinusitis Acute 06/02/2011 ROBINSON HEREDIA APRNNDA S V65.42 Counseling - Smoking Cessation 06/02/2011 ROBINSON HEREDIA APRNNDA S 461.9 Sinusitis Acute 06/02/2011 YAN CLAUDIA ALINA S V65.42 Counseling - Smoking Cessation 06/02/2011 JOSIE OROZCO APRN L 461.9 Sinusitis Acute 06/02/2011 LEYDAL JOSIE TAYLOR L V65.42 Counseling - Smoking Cessation 06/02/2011 PANKAJ IBANEZ DO K 461.9 Sinusitis Acute 06/02/2011 IBANEZ PANKAJ LIGHT K V65.42 Counseling - Smoking Cessation 06/18/2011 616.10 Vaginitis 06/18/2011 PANKAJ IBANEZ DO K 616.10 Vaginitis 06/18/2011 616.10 Vaginitis 06/18/2011 616.10 Vaginitis 06/18/2011 616.10 Vaginitis 06/18/2011 JONAS RODRIGUES APRN R 616.10 Vaginitis 06/18/2011 ROBINSON HEREDIA APRNNDA S 616.10 Vaginitis 06/18/2011 YAN TAYLOR ALINA S 616.10 Vaginitis 06/18/2011 ROBINSON HEREDIA APRNNDA S 616.10 Vaginitis 06/18/2011 JOSIE OROZCO APRN L 616.10 Vaginitis 06/18/2011 PANKAJ IBANEZ DO K 616.10 Vaginitis 10/26/2011 788.41 Urinary Frequency 10/26/2011 PANKAJ IBANEZ DO K 788.41 Urinary Frequency 10/26/2011 788.41 Urinary Frequency 10/26/2011 788.41 Urinary Frequency 10/26/2011 788.41 Urinary Frequency 10/26/2011 JONAS RODRIGUES APRN R 788.41 Urinary Frequency 10/26/2011 YAN TAYLOR ALINA S 788.41 Urinary Frequency 10/26/2011 YAN TAYLOR ALINA S 788.41 Urinary Frequency 10/26/2011 ROBINSON HEREDIA APRNNDA S 788.41 Urinary Frequency 10/26/2011 JOSIE OROZCO APRN L 788.41 Urinary Frequency 10/26/2011 PANKAJ IBANEZ DO 788.41 Urinary Frequency 03/05/2012 V25.01 CONTRACEPTION - ORAL CONTRACEPTION 03/05/2012 V74.5 STD SCREEN 03/05/2012 V76.2 CERVICAL CANCER SCREENING (PAP SMEAR) 03/05/2012 PANKAJ IBANEZ DO V25.01 CONTRACEPTION - ORAL CONTRACEPTION 03/05/2012 PANKAJ IBANEZ DO V74.5 STD SCREEN 03/05/2012 PANKAJ IBANEZ DO V76.2 CERVICAL CANCER SCREENING (PAP SMEAR) 03/05/2012 V25.01 CONTRACEPTION - ORAL CONTRACEPTION 03/05/2012 V74.5 STD SCREEN 03/05/2012 V76.2 CERVICAL CANCER SCREENING (PAP SMEAR) 03/05/2012 V25.01 CONTRACEPTION - ORAL CONTRACEPTION 03/05/2012 V74.5 STD SCREEN 03/05/2012 V76.2 CERVICAL CANCER SCREENING (PAP SMEAR) 03/05/2012 V25.01 CONTRACEPTION - ORAL CONTRACEPTION 03/05/2012 V74.5 STD SCREEN 03/05/2012 V76.2 CERVICAL CANCER SCREENING (PAP SMEAR) 03/05/2012 RODRIGUES TURF KEEPER, JONAS R V25.01 CONTRACEPTION - ORAL CONTRACEPTION 03/05/2012 RODRIGUES TURF KEEPER, JONAS R V74.5 STD SCREEN 03/05/2012 RODRIGUES TURF KEEPER, JONAS R V76.2 CERVICAL CANCER SCREENING (PAP SMEAR) 03/05/2012 YAN TURF KEEPER, ALINA S V25.01 CONTRACEPTION - ORAL CONTRACEPTION 03/05/2012 YAN TURF KEEPER, ALINA S V74.5 STD SCREEN 03/05/2012 YAN TURF KEEPER, ALINA S V76.2 CERVICAL CANCER SCREENING (PAP SMEAR) 03/05/2012 YAN TURF KEEPER, ALINA S V25.01 CONTRACEPTION - ORAL CONTRACEPTION 03/05/2012 YAN TURF KEEPER, ALINA S V74.5 STD SCREEN 03/05/2012 YAN TURF KEEPER, ALINA S V76.2 CERVICAL CANCER SCREENING (PAP SMEAR) 03/05/2012 YAN TURF KEEPER, ALINA S V25.01 CONTRACEPTION - ORAL CONTRACEPTION 03/05/2012 YAN TURF KEEPER, ALINA S V74.5 STD SCREEN 03/05/2012 YANMINDA TAYLOR, ALINA S V76.2 CERVICAL CANCER SCREENING (PAP SMEAR) 03/05/2012 MADL TURF KEEPERJONESA L V25.01 CONTRACEPTION - ORAL CONTRACEPTION 03/05/2012 LEYDAL TURF KEEPERJONESA L V74.5 STD SCREEN 03/05/2012 MADL TURF KEEPER, JOSIE L V76.2 CERVICAL CANCER SCREENING (PAP SMEAR) 03/05/2012 PANKAJ IBANEZ DO K V25.01 CONTRACEPTION - ORAL CONTRACEPTION 03/05/2012 PANKAJ IBANEZ DO K V74.5 STD SCREEN 03/05/2012 PANKAJ IBANEZ DO K V76.2 CERVICAL CANCER SCREENING (PAP SMEAR) 06/16/2012 461.9 SINUSITIS ACUTE 06/16/2012 V65.42 COUNSELING - SMOKING CESSATION 06/16/2012 PANKAJ IBANEZ DO K 461.9 SINUSITIS ACUTE 06/16/2012 PANKAJ IBANEZ DO K V65.42 COUNSELING - SMOKING CESSATION 06/16/2012 461.9 SINUSITIS ACUTE 06/16/2012 V65.42 COUNSELING - SMOKING CESSATION 06/16/2012 461.9 SINUSITIS ACUTE 06/16/2012 V65.42 COUNSELING - SMOKING CESSATION 06/16/2012 RODRIGUES TURF KEEPER, JONAS R 461.9 SINUSITIS ACUTE 06/16/2012 WAQAR RODRIGUES APRNRICIA R V65.42 COUNSELING - SMOKING CESSATION 06/16/2012 YAN TAYLOR ALINA S 461.9 SINUSITIS ACUTE 06/16/2012 YAN TAYLOR, ALINA S V65.42 COUNSELING - SMOKING CESSATION 06/16/2012 YAN TAYLOR ALINA S 461.9 SINUSITIS ACUTE 06/16/2012 YAN TAYLOR, ALINA S V65.42 COUNSELING - SMOKING CESSATION 06/16/2012 YAN TAYLOR, ALINA S 461.9 SINUSITIS ACUTE 06/16/2012 YAN TAYLOR ALINA S V65.42 COUNSELING - SMOKING CESSATION 06/16/2012 PAM TURF KEEPERDESMOND AnguianoNYA L 461.9 SINUSITIS ACUTE 06/16/2012 MADL TURF KEEPERDESMOND AnguianoNYA L V65.42 COUNSELING - SMOKING CESSATION 06/16/2012 PANKAJ IBANEZ DO K 461.9 SINUSITIS ACUTE 06/16/2012 PANKAJ IBANEZ DO V65.42 COUNSELING - SMOKING CESSATION 07/11/2012 IBANEZ PANKAJ LIGHT K 339.89 HEADACHE SYNDROMES 07/11/2012 IBANEZ PANKAJ LIGHT K 473.9 CHRONIC SINUSITIS 07/11/2012 339.89 HEADACHE SYNDROMES 07/11/2012 473.9 CHRONIC SINUSITIS 07/11/2012 339.89 HEADACHE SYNDROMES 07/11/2012 473.9 CHRONIC SINUSITIS 07/11/2012 RAVI TAYLOR JONAS R 339.89 HEADACHE SYNDROMES 07/11/2012 RODRIGUES TURF KEEPER, JONAS R 473.9 CHRONIC SINUSITIS 07/11/2012 YAN TURF KEEPER, ALINA S 339.89 HEADACHE SYNDROMES 07/11/2012 YAN TURF KEEPER, ALINA S 473.9 CHRONIC SINUSITIS 07/11/2012 YAN TURF KEEPER, ALINA S 339.89 HEADACHE SYNDROMES 07/11/2012 YAN TURF KEEPER, ALINA S 473.9 CHRONIC SINUSITIS 07/11/2012 YAN TURF KEEPER, ALINA S 339.89 HEADACHE SYNDROMES 07/11/2012 YAN TURF KEEPER, ALINA S 473.9 CHRONIC SINUSITIS 07/11/2012 MADL TURF KEEPER, JOSIE L 339.89 HEADACHE SYNDROMES 07/11/2012 MADL TURF KEEPER, JOSIE L 473.9 CHRONIC SINUSITIS 07/11/2012 PANKAJ IBANEZ DO K 339.89 HEADACHE SYNDROMES 07/11/2012 IBANEZ PANKAJ LIGHT K 473.9 CHRONIC SINUSITIS 09/21/2012 Ot 473.9 CHRONIC SINUSITIS NOS 09/21/2012 Ot 784.0 HEADACHE 03/01/2014 JONAS RODRIGUES APRN R 381.81 DYSFUNCTION OF EUSTACHIAN TUBE 03/01/2014 YAN TURF KEEPER, ALINA S 381.81 DYSFUNCTION OF EUSTACHIAN TUBE 03/01/2014 YANMINDA TAYLOR ALINA S 381.81 DYSFUNCTION OF EUSTACHIAN TUBE 03/01/2014 YAN TURF KEEPER, ALINA S 381.81 DYSFUNCTION OF EUSTACHIAN TUBE 03/01/2014 MADL TURF KEEPER, JOSIE L 381.81 DYSFUNCTION OF EUSTACHIAN TUBE 03/01/2014 PANKAJ IBANEZ DO K 381.81 DYSFUNCTION OF EUSTACHIAN TUBE 03/25/2014 YAN TURF KEEPER, ALINA S V70.0 EXAM - ROUTINE H&P 03/25/2014 YAN TURF KEEPER, ALINA S V70.0 EXAM - ROUTINE H&P 03/25/2014 YAN TURF KEEPER, ALINA S V70.0 EXAM - ROUTINE H&P 03/25/2014 PAM TURF KEEPER, JOSIE L V70.0 EXAM - ROUTINE H&P 03/25/2014 SHAMAR LIGHT PANKAJ K V70.0 EXAM - ROUTINE H&P 06/03/2014 AGUS DO, BLAKE K Ot 599.0 URIN TRACT INFECTION NOS 06/03/2014 AGUS DO, BLAKE K Ot 724.2 LUMBAGO 06/16/2014 YAN TURF KEEPER, ALINA S 724.2 LUMBAGO/ LOW BACK PAIN 06/16/2014 PAM TURF KEEPER, JOSIE L 724.2 LUMBAGO/ LOW BACK PAIN 06/16/2014 SHAMAR LIGHT PANKAJ K 724.2 LUMBAGO/ LOW BACK PAIN 07/20/2014 LEYDAChema TURF KEEPER, JOSIE L 461.9 SINUSITIS ACUTE 07/20/2014 PAM TURF KEEPER, JOSIE L 465.9 UPPER RESPIRATORY INFECTION 07/20/2014 SHAMAR LIGHT PANKAJ K 461.9 SINUSITIS ACUTE 07/20/2014 IBANEZ DO PANKAJ K 465.9 UPPER RESPIRATORY INFECTION 10/22/2016 REKHA KNOWLES, SHEREE N Ot D62 ACUTE POSTHEMORRHAGIC ANEMIA 10/22/2016 REKHA KNOWLES, SHEREE N Ot F17.210 NICOTINE DEPENDENCE, CIGARETTES, UNCOMPL 10/22/2016 REKHA KNOWLES, SHEREE N Ot O69.81X0 LABOR AND DEL COMP BY CORD AROUND NECK, 10/22/2016 REKHA KNOWLES, SHEREE N Ot O71.82 OTHER SPECIFIED TRAUMA TO PERINEUM AND V 10/22/2016 REKHA KNOWLES, SHEREE N Ot O99.02 ANEMIA COMPLICATING CHILDBIRTH 10/22/2016 REKHA KNOWLES, SHEREE N Ot O99.334 SMOKING (TOBACCO) COMPLICATING CHILDBIRT 10/22/2016 SHEREE DA SILVA MD N Ot O99.824 STREPTOCOCCUS B CARRIER STATE COMPLICATI 10/22/2016 SHEREE DA SILVA MD, Ot Z23 ENCOUNTER FOR IMMUNIZATION 10/22/2016 SHEREE DA SILVA MD, Ot Z37.0 SINGLE LIVE 10/22/2016 SHEREE DA SILVA MD, Ot Z3A.39 39 WEEKS GESTATION OF 11/01/2016 SHEREE DA SILVA MD, Ot F17.210 NICOTINE DEPENDENCE, CIGARETTES, UNCOMPL 11/01/2016 SHEREE DA SILVA MD, Ot K59.00 CONSTIPATION, UNSPECIFIED 11/01/2016 SHEREE DA SILVA MD, Ot O86.12 ENDOMETRITIS FOLLOWING DELIVERY 11/01/2016 SHEREE DA SILVA MD, Ot O99.335 SMOKING (TOBACCO) COMPLICATING THE PUERP 11/01/2016 SHEREE DA SILVA MD, Ot O99.63 DISEASES OF THE DIGESTIVE SYSTEM COMPLIC 05/22/2017 PALMER BOWEN MD Ot F41.9 ANXIETY DISORDER, UNSPECIFIED 05/22/2017 PALMER BOWEN MD, Ot J01.00 ACUTE MAXILLARY SINUSITIS, UNSPECIFIED 05/22/2017 PALMER BOWEN MD, Ot J40 BRONCHITIS, NOT SPECIFIED ACUTE OR CH 05/22/2017 PALMER BOWEN MD Ot R50.9 FEVER, UNSPECIFIED 05/22/2017 PALMER BOWEN MD Ot Z77.22 CNTCT W AND EXPSR TO ENVIRON TOBACCO SMO 05/22/2017 PALMER BOWEN MD Ot Z82.49 FAMILY HX OF ISCHEM HEART DIS AND OTH DI 05/22/2017 PALMER BOWEN MD Ot Z90.89 ACQUIRED ABSENCE OF OTHER ORGANS Procedures Code Description Performed By Performed On Coco Bradley 06/16/2012 83728 ROUTINE VENIPUNCTURE 07/11/2012 16270 RAST PEDIATRIC FOOD PANEL 07/11/2012 [id number] CLAM 07/14/2012 [id number] [place] MEAT 07/14/2012 4003724 WHEAT IGE (ALLERGY) 07/14/2012 [id number] SHRIMP 07/14/2012 [id number] SOYBEAN IGE (ALLERGY) 07/14/2012 9499890 PEANUT IGE (ALLERGY) 07/14/2012 7416910 MILK (COW''S) IGE (ALLERGY ) 07/14/2012 1047333 CORN 07/14/2012 0784630 EGG WHITE IGE (ALLERGY) 07/14/2012 [id number] CODFISH IGE (ALLERGY) 07/14/2012 9517635 DOG DANDER 07/14/2012 8804858 CAT DANDER 07/14/2012 [id number] RAGWEED COMMON-"SHORT RAGWEED" 07/14/2012 9748127 [place] WHITE 07/14/2012 0209051 DUST MITE (DERM.ROSEMARY D2 ) 07/14/2012 8663546 MARSHELDER ROUGH 07/14/2012 [id number] [place] BLUE GRASS 07/14/2012 [id number] AZEEM GRASS IGE 07/14/2012 4464264 [place] TREE CYPRIOT 07/14/2012 3847985 CLADOSPORIUM MOLD 07/14/2012 6429317 BERMUDA GRASS 07/14/2012 2695021 ALTERNARIA TENUIS 07/14/2012 3541680 PECAN TREE 07/14/2012 62907 UA W/ CULTURE IF INDICATED 09/22/2012 72044 OXIMETRY 09/21/2014 [id number] REPAIR VULVA, EXTERNAL APPROACH 10/20/2016 [id number] DELIVERY OF PRODUCTS OF CONCEPTION, EXTE 10/20/2016 Results Test Result Range Complete urinalysis with reflex to culture - 10/20/16 06:15 Urine color determination YELLOW NRG Urine clarity determination CLEAR NRG Urine pH measurement by test strip 6.5 5-9 Specific gravity of urine by test strip 1.010 1.016- 1.022 Urine protein assay by test strip, semi-quantitative NEGATIVE NEGATIVE Urine glucose detection by automated test strip NEGATIVE NEGATIVE Erythrocytes detection in urine sediment by light microscopy NEGATIVE NEGATIVE Urine ketones detection by automated test strip NEGATIVE NEGATIVE Urine nitrite detection by test strip NEGATIVE NEGATIVE Urine total bilirubin detection by test strip NEGATIVE NEGATIVE Urine urobilinogen measurement by automated test strip (mass/volume) NORMAL NORMAL Urine leukocyte esterase detection by dipstick 1+ NEGATIVE Automated urine sediment erythrocyte count by microscopy (number/high power field) NONE NRG Automated urine sediment leukocyte count by microscopy (number/high power field ) NONE NRG Bacteria detection in urine sediment by light microscopy NEGATIVE NRG Squamous epithelial cells detection in urine sediment by light microscopy RARE NRG Crystals detection in urine sediment by light microscopy NONE NRG Casts detection in urine sediment by light microscopy NONE NRG Mucus detection in urine sediment by light microscopy NEGATIVE NRG Complete urinalysis with reflex to culture NO NRG Complete blood count (CBC) with automated white blood cell (WBC) differential - 10/20/16 07:05 Blood leukocytes automated count (number/volume) 17.8 10*3/uL 4.3-11.0 Blood erythrocytes automated count (number/volume) 3.92 10*6/uL 4.35-5.85 Venous blood hemoglobin measurement (mass/volume) 13.2 g/dL 11.5-16.0 Blood hematocrit (volume fraction) 38 % 35-52 Automated erythrocyte mean corpuscular volume 97 [foz_us] 80-99 Automated erythrocyte mean corpuscular hemoglobin (mass per erythrocyte) 34 pg 25-34 Automated erythrocyte mean corpuscular hemoglobin concentration measurement ( mass/volume) 35 g/dL 32-36 Automated erythrocyte distribution width ratio 12.9 % 10.0-14.5 Automated blood platelet count (count/volume) 170 10*3/uL 130-400 Automated blood platelet mean volume measurement 13.8 [foz_us] 7.4-10.4 Automated blood neutrophils/100 leukocytes 73 % 42-75 Automated blood lymphocytes/100 leukocytes 19 % 12-44 Blood monocytes/100 leukocytes 6 % 0-12 Automated blood eosinophils/100 leukocytes 1 % 0-10 Automated blood basophils/100 leukocytes 0 % 0-10 Blood neutrophils automated count (number/volume) 13.0 10*3 1.8-7.8 Blood lymphocytes automated count (number/volume) 3.4 10*3 1.0-4.0 Blood monocytes automated count (number/volume) 1.1 10*3 0.0-1.0 Automated eosinophil count 0.2 10*3/uL 0.0-0.3 Automated blood basophil count (count/volume) 0.1 10*3/uL 0.0-0.1 Blood type T Indirect antibody screen panel - 10/20/16 07:05 ABO+Rh group ON NRG Transfusion band number [id number] Blood group antibody screen NEGATIVE NRG Blood manual differential performed detection - 10/20/16 07:05 Blood monocytes/100 leukocytes 2 % NRG Manual blood segmented neutrophils/100 leukocytes 78 % NRG Blood band neutrophils/100 leukocytes 6 % NRG Manual blood lymphocytes/100 leukocytes 12 % NRG Manual eosinophils/100 leukocytes in nose 1 % NRG Manual blood basophils/100 leukocytes 1 % NRG Blood erythrocyte morphology finding identification NORMAL NRG Complete blood count (CBC) with automated white blood cell (WBC) differential - 10/21/16 05:15 Blood leukocytes automated count (number/volume) 20.7 10*3/uL 4.3-11.0 Blood erythrocytes automated count (number/volume) 3.03 10*6/uL 4.35-5.85 Venous blood hemoglobin measurement (mass/volume) 10.3 g/dL 11.5-16.0 Blood hematocrit (volume fraction) 30 % 35-52 Automated erythrocyte mean corpuscular volume 99 [foz_us] 80-99 Automated erythrocyte mean corpuscular hemoglobin (mass per erythrocyte) 34 pg 25-34 Automated erythrocyte mean corpuscular hemoglobin concentration measurement ( mass/volume) 34 g/dL 32-36 Automated erythrocyte distribution width ratio 12.8 % 10.0-14.5 Automated blood platelet count (count/volume) 144 10*3/uL 130-400 Automated blood platelet mean volume measurement 13.4 [foz_us] 7.4-10.4 Automated blood neutrophils/100 leukocytes 71 % 42-75 Automated blood lymphocytes/100 leukocytes 19 % 12-44 Blood monocytes/100 leukocytes 8 % 0-12 Automated blood eosinophils/100 leukocytes 1 % 0-10 Automated blood basophils/100 leukocytes 0 % 0-10 Blood neutrophils automated count (number/volume) 14.7 10*3 1.8-7.8 Blood lymphocytes automated count (number/volume) 4.0 10*3 1.0-4.0 Blood monocytes automated count (number/volume) 1.7 10*3 0.0-1.0 Automated eosinophil count 0.2 10*3/uL 0.0-0.3 Automated blood basophil count (count/volume) 0.0 10*3/uL 0.0-0.1 Blood lactic acid measurement (moles/volume) - 10/29/16 19:37 Blood lactic acid measurement (moles/volume) 1.11 mmol/L 0.50-2.00 PT panel in platelet poor plasma by coagulation assay - 10/29/16 19:37 Prothrombin time (PT) in platelet poor plasma by coagulation assay 13.8 s 12.2-14.7 INR in platelet poor plasma or blood by coagulation assay 1.1 0.8-1.4 Activated partial thromboplastin time (aPTT) in platelet poor plasma bycoagulation assay - 10/29/16 19:37 Activated partial thromboplastin time (aPTT) in platelet poor plasma bycoagulation assay 34 s 24-35 Complete blood count (CBC) with automated white blood cell (WBC) differential - 10/29/16 19:37 Blood leukocytes automated count (number/volume) 25.9 10*3/uL 4.3-11.0 Blood erythrocytes automated count (number/volume) 3.33 10*6/uL 4.35-5.85 Venous blood hemoglobin measurement (mass/volume) 11.3 g/dL 11.5-16.0 Blood hematocrit (volume fraction) 33 % 35-52 Automated erythrocyte mean corpuscular volume 99 [foz_us] 80-99 Automated erythrocyte mean corpuscular hemoglobin (mass per erythrocyte) 34 pg 25-34 Automated erythrocyte mean corpuscular hemoglobin concentration measurement ( mass/volume) 35 g/dL 32-36 Automated erythrocyte distribution width ratio 12.5 % 10.0-14.5 Automated blood platelet count (count/volume) 245 10*3/uL 130-400 Automated blood platelet mean volume measurement 11.6 [foz_us] 7.4-10.4 Automated blood neutrophils/100 leukocytes 90 % 42-75 Automated blood lymphocytes/100 leukocytes 6 % 12-44 Blood monocytes/100 leukocytes 4 % 0-12 Automated blood eosinophils/100 leukocytes 0 % 0-10 Automated blood basophils/100 leukocytes 0 % 0-10 Blood neutrophils automated count (number/volume) 23.3 10*3 1.8-7.8 Blood lymphocytes automated count (number/volume) 1.7 10*3 1.0-4.0 Blood monocytes automated count (number/volume) 0.9 10*3 0.0-1.0 Automated eosinophil count 0.0 10*3/uL 0.0-0.3 Automated blood basophil count (count/volume) 0.0 10*3/uL 0.0-0.1 Comprehensive metabolic panel - 10/29/16 19:37 Serum or plasma sodium measurement (moles/volume) 139 mmol/L 135-145 Serum or plasma potassium measurement (moles/volume) 3.4 mmol/L 3.6-5.0 Serum or plasma chloride measurement (moles/volume) 106 mmol/L 98-107 Carbon dioxide 24 mmol/L 21-32 Serum or plasma anion gap determination (moles/volume) 9 mmol/L 5-14 Serum or plasma urea nitrogen measurement (mass/volume) 12 mg/dL 7-18 Serum or plasma creatinine measurement (mass/volume) 0.73 mg/dL 0.60-1.30 Serum or plasma urea nitrogen/creatinine mass ratio 16 NRG Serum or plasma creatinine measurement with calculation of estimated glomerular filtration rate > NRG Serum or plasma glucose measurement (mass/volume) 121 mg/dL 70-105 Serum or plasma calcium measurement (mass/volume) 8.8 mg/dL 8.5-10.1 Serum or plasma total bilirubin measurement (mass/volume) 0.5 mg/dL 0.1-1.0 Serum or plasma alkaline phosphatase measurement (enzymatic activity/volume) 91 U/L 40-136 Serum or plasma aspartate aminotransferase measurement (enzymatic activity/ volume) 14 U/L 5-34 Serum or plasma alanine aminotransferase measurement (enzymatic activity/volume ) 17 U/L 0-55 Serum or plasma protein measurement (mass/volume) 5.8 g/dL 6.4-8.2 Serum or plasma albumin measurement (mass/volume) 3.4 g/dL 3.2-4.5 Blood manual differential performed detection - 10/29/16 19:37 Blood monocytes/100 leukocytes 1 % NRG Manual blood segmented neutrophils/100 leukocytes 76 % NRG Blood band neutrophils/100 leukocytes 17 % NRG Manual blood lymphocytes/100 leukocytes 6 % NRG Manual eosinophils/100 leukocytes in nose 0 % NRG Manual blood basophils/100 leukocytes 0 % NRG Blood erythrocyte morphology finding identification NORMAL NRG Bacterial blood culture - 10/29/16 19:37 Bacterial blood culture NG NRG Complete urinalysis with reflex to culture - 10/29/16 19:54 Urine color determination YELLOW NRG Urine clarity determination CLEAR NRG Urine pH measurement by test strip 8 5-9 Specific gravity of urine by test strip 1.010 1.016- 1.022 Urine protein assay by test strip, semi-quantitative NEGATIVE NEGATIVE Urine glucose detection by automated test strip NEGATIVE NEGATIVE Erythrocytes detection in urine sediment by light microscopy NEGATIVE NEGATIVE Urine ketones detection by automated test strip NEGATIVE NEGATIVE Urine nitrite detection by test strip NEGATIVE NEGATIVE Urine total bilirubin detection by test strip NEGATIVE NEGATIVE Urine urobilinogen measurement by automated test strip (mass/volume) NORMAL NORMAL Urine leukocyte esterase detection by dipstick NEGATIVE NEGATIVE Automated urine sediment erythrocyte count by microscopy (number/high power field) RARE NRG Automated urine sediment leukocyte count by microscopy (number/high power field ) RARE NRG Bacteria detection in urine sediment by light microscopy NONE NRG Crystals detection in urine sediment by light microscopy NONE NRG Casts detection in urine sediment by light microscopy NONE NRG Mucus detection in urine sediment by light microscopy SMALL NRG Complete urinalysis with reflex to culture NO NRG Bacterial blood culture - 10/29/16 20:09 Bacterial blood culture NG NRG Complete blood count (CBC) with automated white blood cell (WBC) differential - 10/30/16 04:15 Blood leukocytes automated count (number/volume) 17.0 10*3/uL 4.3-11.0 Blood erythrocytes automated count (number/volume) 3.20 10*6/uL 4.35-5.85 Venous blood hemoglobin measurement (mass/volume) 10.6 g/dL 11.5-16.0 Blood hematocrit (volume fraction) 32 % 35-52 Automated erythrocyte mean corpuscular volume 100 [foz_us] 80-99 Automated erythrocyte mean corpuscular hemoglobin (mass per erythrocyte) 33 pg 25-34 Automated erythrocyte mean corpuscular hemoglobin concentration measurement ( mass/volume) 33 g/dL 32-36 Automated erythrocyte distribution width ratio 12.9 % 10.0-14.5 Automated blood platelet count (count/volume) 220 10*3/uL 130-400 Automated blood platelet mean volume measurement 11.6 [foz_us] 7.4-10.4 Automated blood neutrophils/100 leukocytes 87 % 42-75 Automated blood lymphocytes/100 leukocytes 8 % 12-44 Blood monocytes/100 leukocytes 4 % 0-12 Automated blood eosinophils/100 leukocytes 0 % 0-10 Automated blood basophils/100 leukocytes 0 % 0-10 Blood neutrophils automated count (number/volume) 14.9 10*3 1.8-7.8 Blood lymphocytes automated count (number/volume) 1.4 10*3 1.0-4.0 Blood monocytes automated count (number/volume) 0.8 10*3 0.0-1.0 Automated eosinophil count 0.0 10*3/uL 0.0-0.3 Automated blood basophil count (count/volume) 0.0 10*3/uL 0.0-0.1 Comprehensive metabolic panel - 10/30/16 04:15 Serum or plasma sodium measurement (moles/volume) 139 mmol/L 135-145 Serum or plasma potassium measurement (moles/volume) 3.5 mmol/L 3.6-5.0 Serum or plasma chloride measurement (moles/volume) 108 mmol/L 98-107 Carbon dioxide 22 mmol/L 21-32 Serum or plasma anion gap determination (moles/volume) 9 mmol/L 5-14 Serum or plasma urea nitrogen measurement (mass/volume) 9 mg/dL 7-18 Serum or plasma creatinine measurement (mass/volume) 0.63 mg/dL 0.60-1.30 Serum or plasma urea nitrogen/creatinine mass ratio 14 NRG Serum or plasma creatinine measurement with calculation of estimated glomerular filtration rate > NRG Serum or plasma glucose measurement (mass/volume) 98 mg/dL 70-105 Serum or plasma calcium measurement (mass/volume) 8.2 mg/dL 8.5-10.1 Serum or plasma total bilirubin measurement (mass/volume) 0.4 mg/dL 0.1-1.0 Serum or plasma alkaline phosphatase measurement (enzymatic activity/volume) 84 U/L 40-136 Serum or plasma aspartate aminotransferase measurement (enzymatic activity/ volume) 14 U/L 5-34 Serum or plasma alanine aminotransferase measurement (enzymatic activity/volume ) 15 U/L 0-55 Serum or plasma protein measurement (mass/volume) 5.6 g/dL 6.4-8.2 Serum or plasma albumin measurement (mass/volume) 3.3 g/dL 3.2-4.5 Complete blood count (CBC) with automated white blood cell (WBC) differential - 10/31/16 04:33 Blood leukocytes automated count (number/volume) 10.4 10*3/uL 4.3-11.0 Blood erythrocytes automated count (number/volume) 2.92 10*6/uL 4.35-5.85 Venous blood hemoglobin measurement (mass/volume) 9.8 g/dL 11.5-16.0 Blood hematocrit (volume fraction) 29 % 35-52 Automated erythrocyte mean corpuscular volume 100 [foz_us] 80-99 Automated erythrocyte mean corpuscular hemoglobin (mass per erythrocyte) 34 pg 25-34 Automated erythrocyte mean corpuscular hemoglobin concentration measurement ( mass/volume) 33 g/dL 32-36 Automated erythrocyte distribution width ratio 12.8 % 10.0-14.5 Automated blood platelet count (count/volume) 218 10*3/uL 130-400 Automated blood platelet mean volume measurement 11.5 [foz_us] 7.4-10.4 Automated blood neutrophils/100 leukocytes 62 % 42-75 Automated blood lymphocytes/100 leukocytes 27 % 12-44 Blood monocytes/100 leukocytes 9 % 0-12 Automated blood eosinophils/100 leukocytes 2 % 0-10 Automated blood basophils/100 leukocytes 0 % 0-10 Blood neutrophils automated count (number/volume) 6.4 10*3 1.8-7.8 Blood lymphocytes automated count (number/volume) 2.8 10*3 1.0-4.0 Blood monocytes automated count (number/volume) 1.0 10*3 0.0-1.0 Automated eosinophil count 0.2 10*3/uL 0.0-0.3 Automated blood basophil count (count/volume) 0.0 10*3/uL 0.0-0.1 Complete blood count (CBC) with automated white blood cell (WBC) differential - 11/01/16 04:00 Blood leukocytes automated count (number/volume) 10.0 10*3/uL 4.3-11.0 Blood erythrocytes automated count (number/volume) 3.13 10*6/uL 4.35-5.85 Venous blood hemoglobin measurement (mass/volume) 10.4 g/dL 11.5-16.0 Blood hematocrit (volume fraction) 31 % 35-52 Automated erythrocyte mean corpuscular volume 100 [foz_us] 80-99 Automated erythrocyte mean corpuscular hemoglobin (mass per erythrocyte) 33 pg 25-34 Automated erythrocyte mean corpuscular hemoglobin concentration measurement ( mass/volume) 33 g/dL 32-36 Automated erythrocyte distribution width ratio 12.7 % 10.0-14.5 Automated blood platelet count (count/volume) 226 10*3/uL 130-400 Automated blood platelet mean volume measurement 11.5 [foz_us] 7.4-10.4 Automated blood neutrophils/100 leukocytes 49 % 42-75 Automated blood lymphocytes/100 leukocytes 39 % 12-44 Blood monocytes/100 leukocytes 8 % 0-12 Automated blood eosinophils/100 leukocytes 4 % 0-10 Automated blood basophils/100 leukocytes 0 % 0-10 Blood neutrophils automated count (number/volume) 4.9 10*3 1.8-7.8 Blood lymphocytes automated count (number/volume) 3.9 10*3 1.0-4.0 Blood monocytes automated count (number/volume) 0.8 10*3 0.0-1.0 Automated eosinophil count 0.4 10*3/uL 0.0-0.3 Automated blood basophil count (count/volume) 0.0 10*3/uL 0.0-0.1 Encounters ACCT No. Visit Date/Time Discharge Status Pt. Type Provider Facility Loc./Unit Complaint [id number] 05/15/2017 16:41:00 05/15/2017 18:02:00 DIS Outpatient PALMER BOWEN MD [facility] ER TROUBLE BREATHING;RUNNY NOSE [id number] 10/20/2016 07:17:00 10/22/2016 13:14:00 DIS Inpatient SHEREE DA SILVA MD [facility] LDRP LABOR [id number] 04/02/2016 15:33:00 04/02/2016 23:59:59 CLS Preadmit SHEREE DA SILVA MD [facility] REHAB L SCIATIC NERVE PAIN [id number] 06/03/2014 21:16:00 06/03/2014 22:02:00 DIS Emergency AGUS BLAKE LIGHT K [facility] ER BACK PAIN [id number] 10/29/2016 22:19:00 ACT Inpatient SHEREE DA SILVA MD [facility] 4TH SEPSIS,RETAINED PRODUCTS OF CONCEPTION, ENDOMETRITI [id number] 06/03/2014 21:16:00 Document Registration [id number] 09/21/2012 00:38:00 Document Registration [id number] 02/24/2011 13:12:00 Document Registration [id number] 09/21/2014 14:26:00 09/21/2014 23:59:59 CLS Outpatient SHAMAR LIGHT PANKAJ K [id number] 07/20/2014 13:09:00 07/20/2014 23:59:59 CLS Outpatient JOSIE OROZCO APRN [id number] 06/16/2014 11:46:00 06/16/2014 23:59:59 CLS Outpatient ALINA HEREDIA APRN [id number] 05/03/2014 15:41:00 05/03/2014 23:59:59 CLS Outpatient ALINA HEREDIA APRN [id number] 03/25/2014 17:43:00 03/25/2014 23:59:59 CLS Outpatient ALINA HEREDIA APRN [id number] 03/01/2014 14:19:00 03/01/2014 23:59:59 CLS Outpatient JONAS RODRIGUES APRN [id number] 08/11/2012 15:44:00 08/11/2012 23:59:59 CLS Outpatient [id number] 07/11/2012 08:28:00 07/11/2012 23:59:59 CLS Outpatient PNAKAJ IBANEZ DO [id number] 06/16/2012 16:24:00 06/16/2012 23:59:59 CLS Outpatient [id number] 03/05/2012 10:58:00 03/05/2012 23:59:59 CLS Outpatient [id number] 09/22/2012 15:12:00 Document Registration
== END 2017-08-23 20:34 | disposition home or self-care (01) ==
LOC: EDUNIT# 18:00 → ER 18:01
DX: G43.909 Migraine, unspecified, not intractable, without status migrainosus (principal); R11.0 Nausea; F41.9 Anxiety disorder, unspecified; Z77.22 Contact with and (suspected) exposure to environmental tobacco smoke (acute) (chronic); Z90.49 Acquired absence of other specified parts of digestive tract; Z90.89 Acquired absence of other organs; Z88.0 Allergy status to penicillin
CPT/HCPCS: 84703

== ENCOUNTER 2018-08-01 11:54 | Day surgery (SDC) | payer OTHER ==
[~2018-08-01] VITALS: Ht 157.5 cm; Wt 62.6 kg
[2018-08-01] MEDS: LACTATED RINGERS 1,000 ML IV PRN ×2 (12:17→13:40)
[2018-08-01] MEDS ORDERED: MIDAZOLAM 2 MG/2 ML (VERSED) VIAL ONE (12:21)
[2018-08-01] MEDS ORDERED: ONDANSETRON 4 MG/2 ML (SDV) Z0FRAN ONE (12:21)
[2018-08-01] MEDS ORDERED: LIDOCAINE PF 2% 5 ML (XYLOCAINE) VIAL ONE (12:21)
[2018-08-01] MEDS ORDERED: proPOfol 200 MG/20 ML (DIPRIVAN) VIAL IV ONE (12:21)
[2018-08-01] MEDS ORDERED: DEXAMETHASONE 10 MG/ML (DECADRON) 1 ML VIAL ONE (12:21)
[2018-08-01] MEDS ORDERED: fentaNYL INJECTION 100 MCG/2 ML AMP ONE (12:21)
[2018-08-01] MEDS ORDERED: SEVOFLURANE (ULTANE) 15 ML INHAL SOLN ONE ×2 (12:21→13:23)
[2018-08-01 12:35] VITALS: BP 106/56
[2018-08-01 12:35] LABS: BASOPHILS % (AUTO) 0 % (0-10); EOSINOPHILS # (AUTO) 0.3 10^3/uL (0.0-0.3); EOSINOPHILS % (AUTO) 3 % (0-10); HEMATOCRIT 37 % (35-52); HEMOGLOBIN 12.2 G/DL (11.5-16.0); LYMPHOCYTES # (AUTO) 2.4 X 10^3 (1.0-4.0); LYMPHOCYTES % (AUTO) 27 % (12-44); MEAN CORPUSCULAR HEMOGLOBIN 33 PG (25-34); MEAN CORPUSCULAR HGB CONC 33 G/DL (32-36); MEAN CORPUSCULAR VOLUME 98 FL (80-99); MEAN PLATELET VOLUME 11.2 FL (7.4-10.4); MONOCYTES # (AUTO) 0.6 X 10^3 (0.0-1.0); MONOCYTES % (AUTO) 7 % (0-12); NEUTROPHILS # (AUTO) 5.8 X 10^3 (1.8-7.8); NEUTROPHILS % (AUTO) 64 % (42-75); PLATELET COUNT 196 10^3/uL (130-400); RED CELL DISTRIBUTION WIDTH 12.3 % (10.0-14.5)
[2018-08-01] MEDS ORDERED: metroNIDAZOLE 500 MG/100 ML IVPB (PRE-MIX) IV ONE (12:45)
[2018-08-01] MEDS ORDERED: ceFAZolin 1,000 MG/SWFI 10 ML IV PUSH IV ONE ×2 (12:45)
[2018-08-01] MEDS ORDERED: CATHETER FLUSH 10 ML SYR IV PRN (12:45)
--- NOTE | 2018-08-01 12:47 | Progress Note-Pre Operative ---
Pre-Operative Progress Note H&P Reviewed The H&P was reviewed, patient examined and no changes noted. Date Seen by Provider: Aug 01, 2018 Time Seen by Provider: 12:45 Date H&P Reviewed: Aug 01, 2018 Time H&P Reviewed: 12:30 Pre-Operative Diagnosis: MISED BASHIR SAMUELS DO Aug 01, 2018 12:47
[2018-08-01] MEDS ORDERED: OXYC-529 PO (13:10)
[2018-08-01] MEDS ORDERED: ACET-2267 PO (13:10)
[2018-08-01] MEDS ORDERED: IBUP-1773 PO (13:10)
--- NOTE | 2018-08-01 13:12 | Discharge Inst-Women's Service ---
Discharge Inst-Women's Serv Depart Medication/Instructions New, Converted or Re-Newed RX: RX on Chart Final Diagnosis Missed Consults/Follow Up Additional Follow Up: Yes (2 weeks with Michael) Activity Activity: Activity as Tolerated Driving Instructions: No Driving for 24 Hours NO SMOKING: NO SMOKING Nothing Inside Vagina: No Douching, No [place] (until bleeding has stopped) , No Tampons Diet Discharge Diet: No Restrictions Symptoms to Report to : Bleeding Excessive, Pain Increased, Fever Over 101 Degrees F, Vaginal Bleeding Increase, Cramps in Feet or Legs, Vaginal Discharge Foul For Any Problems or Questions: Contact Your Physician BASHIR SAMUELS DO Aug 01, 2018 13:12
--- NOTE | 2018-08-01 13:14 | Operative Report ---
Operative Report Date of Procedure/Surgery Aug 01, 2018 Surgeon (s) BASHIR SAMUELS DO Case Planner (s): Lucero Bobo, MS III Post-Operative Diagnosis Missed Procedure Performed dilation and curettage Description of Procedure Anesthesia Type: General Specimen(s) collected/removed products of conception Allergies and Home Medications Allergies Coded Allergies: Penicillins (Verified Allergy, Unknown, 10/20/16) SEVERE FAMILY HX, SO PT HAS NEVER TAKEN. Home Medications Acetaminophen 500 Mg Tablet, 1,000 MG PO TID Prescribed by: BASHIR SAMUELS on 08/01/18 1310 Albuterol Sulfate 1 Puff Puff, 2 PUFF IH Q4H PRN for SHORTNESS OF BREATH 1 PUFF = 90 MCG Prescribed by: PALMER BOWEN on 05/15/17 1750 Ibuprofen 600 Mg Tablet, 600 MG PO Q6H Prescribed by: BASHIR SAMUELS on 08/01/18 1310 Oxycodone HCl 5 Mg Tablet, 5 MG PO Q4H Prescribed by: BASHIR SAMUELS on 08/01/18 1310 Patient Home Medication List Home Medication List Reviewed: Yes BASHIR SAMUELS DO Aug 01, 2018 13:14
[2018-08-01] MEDS ORDERED: KETOROLAC 30 MG/ML VIAL ONE (13:25)
[2018-08-01] MEDS ORDERED: morphine INJ 10 MG/ML 1ML (SYR OR VIAL) IVP ONE (13:45)
[2018-08-01] MEDS ORDERED: MEPERIDINE (DEMEROL) INJ 50 MG/ML IVP ONE (13:45)
[2018-08-01] MEDS ORDERED: ONDANSETRON 4 MG/2 ML (SDV) Z0FRAN IVP PRN (13:45)
[2018-08-01 14:23] VITALS: BP 117/68
[2018-08-01 14:53] VITALS: BP 108/58
[2018-08-01 15:23] VITALS: BP 105/65
[2018-08-01 15:25] VITALS: BP 105/65
== END 2018-08-01 15:25 | disposition home or self-care (01) ==
LOC: SDC 11:54
PROVIDERS: ATTEND Obstetrics & Gynecology
DX: O02.1 Missed abortion (principal); F17.210 Nicotine dependence, cigarettes, uncomplicated; F41.9 Anxiety disorder, unspecified; Z67.11 Type A blood, Rh negative
CPT/HCPCS: 36415; 85025; 86850; 86900; 86901; 87081

== ENCOUNTER 2018-08-04 16:00 | Emergency (ER) | payer OTHER ==
[~2018-08-04] VITALS: Ht 157.5 cm; Wt 61.2 kg
[2018-08-04] MEDS ORDERED: NS IV 1000 ML 1,000 ML IV SCH (16:18)
[2018-08-04] MEDS ORDERED: NS IV 500 ML 500 ML IV ONE (16:18)
--- NOTE | 2018-08-04 16:23 | ED GU-Female ---
General Stated Complaint: HAD DNC, SHAKY, NAUSEA Source: patient Exam Limitations: no limitations History of Present Illness Date Seen by Provider: Aug 04, 2018 Time Seen by Provider: 16:11 Initial Comments Patient presents to ER by private conveyance with chief complaint of shaky, chills and feeling 5 out of 10 achy pain in her pelvis. She had a D&C [address] Samuels after miscarriage. Her STD checks but that patency were negative. She has had Trichomonas in the past but it was treated per. She is not on antibiotic's now. After her first vaginal delivery she did have endometritis and sepsis and she said it felt very similar to what she feels like today. She is using the oxycodone but has not had any today. She is also using Tylenol and ibuprofen [id number] with her last dose being around 9 and 10:00 respectively. She says she's not having any foul-smelling discharge just bloody show. Mild dysuria. Has not had a bowel movement in a week. She's been using Dulcolax with no benefit for the past day and a half. No rash. She has had a cough more productive than usual although she is a smoker. She's had no sore throat but she has had nasal congestion and feeling of fullness in both ears. Allergies and Home Medications Allergies Coded Allergies: Penicillins (Verified Allergy, Unknown, 10/20/16) SEVERE FAMILY HX, SO PT HAS NEVER TAKEN. Home Medications Acetaminophen 500 Mg Tablet, 1,000 MG PO TID Prescribed by: BASHIR SAMUELS on 08/01/18 1310 Ibuprofen 600 Mg Tablet, 600 MG PO Q6H Prescribed by: BASHIR SAMUELS on 08/01/18 1310 Oxycodone HCl 5 Mg Tablet, 5 MG PO Q4H Prescribed by: BASHIR SAMUELS on 08/01/18 1310 Patient Home Medication List Home Medication List Reviewed: Yes Review of Systems Review of Systems Constitutional: No chills, No diaphoresis EENTM: No hearing loss, No ear pain Respiratory: No cough, No short of breath Cardiovascular: No chest pain, No edema Gastrointestinal: No abdominal pain, No nausea, No vomiting Genitourinary: denies burning, denies dysuria Past Qqprtfz-Cmrmwk-Kgbupg Hx Patient Social History Alcohol Use: Denies Use Recreational Drug Use: No Smoking Status: Current Everyday Smoker Type Used: Cigarettes 2nd Hand Smoke Exposure: Yes Recent Foreign Travel: No Contact w/Someone Who Travel: No Recent Hopitalizations: No Immunizations Up To Date Tetanus Booster (TDap): Less than 5yrs PED Vaccines UTD: Yes Date of Influenza Vaccine: Mar 17, 2016 Seasonal Allergies Seasonal Allergies: No Past Medical History Surgeries: Yes Adenoidectomy, Appendectomy, Tonsillectomy Respiratory: No Currently Using CPAP: No Currently Using BIPAP: No Cardiac: No Neurological: No Reproductive Disorders: No Sexually Transmitted Disease: No HIV/AIDS: No Genitourinary: No Gastrointestinal: No Musculoskeletal: No Endocrine: No HEENT: No Cancer: No Psychosocial: Yes Anxiety Integumentary: No Blood Disorders: Yes (ANEMIA) Adverse Reaction/Blood Tranf: No Family Medical History Diabetes mellitus (MOTHER FATHER) FH: cancer (MOTHER PGF) FH: heart disease (FATHER MGM PGM) Hypertension (MOTHER FATHER MGM PGM MGF PGF) No Pertinent Family Hx Physical Exam Vital Signs Vital Signs - First Documented 08/04/18 16:06 Temp 96.9 Pulse 92 Resp 18 B/P (MAP) 126/83 (97) Pulse Ox 100 Capillary Refill : Height, Weight, BMI Height: 5'2.00" Weight: 138lbs. 0.0oz. 62.672756gd; 25.2 BMI Method:Stated General Appearance: WD/WN, no apparent distress HEENT: PERRL/EOMI, normal ENT inspection, pharynx normal Neck: non-tender, full range of motion Cardiovascular: normal peripheral pulses, regular rate, rhythm Respiratory: no respiratory distress, no accessory muscle use Gastrointestinal: normal bowel sounds, no organomegaly Neurologic/Psychiatric: alert, normal mood/affect, oriented x 3 Focused Exam Lactate Level 08/04/18 16:20: Lactic Acid Level 1.06 Lactic Acid Level Progress/Results/Core Measures Suspected Sepsis SIRS Temperature: Pulse: Respiratory Rate: Laboratory Tests 08/04/18 16:20: White Blood Count 12.9H Blood Pressure / Mean: 08/04/18 16:20: Lactic Acid Level 1.06 Laboratory Tests 08/04/18 16:20: Creatinine 0.67, INR Comment 1.0, Platelet Count 223, Total Bilirubin 0.3 Results/Orders Lab Results Laboratory Tests Test 08/04/18 16:20 08/04/18 16:40 Range/Units White Blood Count 12.9 H 4.3-11.0 10^3/uL Red Blood Count 3.36 L 4.35-5.85 10^6/uL Hemoglobin 11.3 L 11.5-16.0 G/DL Hematocrit 33 L 35-52 % Mean Corpuscular Volume 99 80-99 FL Mean Corpuscular Hemoglobin 34 25-34 PG Mean Corpuscular Hemoglobin Concent 34 32-36 G/DL Red Cell Distribution Width 12.1 10.0-14.5 % Platelet Count 223 130-400 10^3/uL Mean Platelet Volume 11.4 H 7.4-10.4 FL Neutrophils (%) (Auto) 68 42-75 % Lymphocytes (%) (Auto) 22 12-44 % Monocytes (%) (Auto) 7 0-12 % Eosinophils (%) (Auto) 2 0-10 % Basophils (%) (Auto) 0 0-10 % Neutrophils # (Auto) 8.8 H 1.8-7.8 X 10^3 Lymphocytes # (Auto) 2.9 1.0-4.0 X 10^3 Monocytes # (Auto) 0.9 0.0-1.0 X 10^3 Eosinophils # (Auto) 0.3 0.0-0.3 10^3/uL Basophils # (Auto) 0.0 0.0-0.1 10^3/uL Prothrombin Time 13.5 12.2-14.7 SEC INR Comment 1.0 0.8-1.4 Activated Partial Thromboplast Time 31 24-35 SEC Sodium Level 141 135-145 MMOL/L Potassium Level 3.5 L 3.6-5.0 MMOL/L Chloride Level 105 98-107 MMOL/L Carbon Dioxide Level 27 21-32 MMOL/L Anion Gap 9 5-14 MMOL/L Blood Urea Nitrogen 8 7-18 MG/DL Creatinine 0.67 0.60-1.30 MG/DL Estimat Glomerular Filtration Rate > 60 BUN/Creatinine Ratio 12 Glucose Level 81 70-105 MG/DL Lactic Acid Level 1.06 0.50-2.00 MMOL/L Calcium Level 9.7 8.5-10.1 MG/DL Corrected Calcium 8.5-10.1 MG/DL Total Bilirubin 0.3 0.1-1.0 MG/DL Aspartate Amino Transf (AST/SGOT) 18 5-34 U/L Alanine Aminotransferase (ALT/SGPT) 12 0-55 U/L Alkaline Phosphatase 47 40-136 U/L Total Protein 7.2 6.4-8.2 GM/DL Albumin 4.8 H 3.2-4.5 GM/DL Urine Color YELLOW Urine Clarity CLEAR Urine pH 8 5-9 Urine Specific [place] 1.010 L 1.016-1.022 Urine Protein NEGATIVE NEGATIVE Urine Glucose (UA) NEGATIVE NEGATIVE Urine Ketones NEGATIVE NEGATIVE Urine Nitrite NEGATIVE NEGATIVE Urine Bilirubin NEGATIVE NEGATIVE Urine Urobilinogen NORMAL NORMAL MG/DL Urine Leukocyte Esterase NEGATIVE NEGATIVE Urine RBC (Auto) NEGATIVE NEGATIVE Urine RBC NONE /HPF Urine WBC RARE /HPF Urine Squamous Epithelial Cells 0-2 /HPF Urine Crystals NONE /LPF Urine Bacteria NEGATIVE /HPF Urine Casts NONE /LPF Urine Mucus NEGATIVE /LPF Urine Culture Indicated NO Micro Results Microbiology 08/04/18 Blood Culture - Preliminary, Resulted No growth 08/04/18 Blood Culture - Preliminary, Resulted No growth 08/04/18 Influenza Types A,B Antigen (ARLIN) - Final, Complete 08/04/18 Urine Culture - Final, Complete NO GROWTH My Orders Orders - PALMER BOWEN Influenza A And B Antigens (08/04/18 16:18) Saline Lock/Iv-Start (08/04/18 16:18) Ns Iv 500 Ml (Sodium Chloride 0.9%) (08/04/18 16:18) Ns Iv 1000 Ml (Sodium Chloride 0.9%) (08/04/18 16:18) Cbc With Automated Diff (08/04/18 16:18) Comprehensive Metabolic Panel (08/04/18 16:18) Blood Culture (08/04/18 16:18) Urinalysis (08/04/18 16:18) Urine Culture (08/04/18 16:18) Protime With Inr (08/04/18 16:18) Partial Thromboplastin Time (08/04/18 16:18) Chest 1 View, Ap/Pa Only (08/04/18 16:18) Saline Lock/Iv-Start (08/04/18 16:18) O2 (08/04/18 16:18) Remove Rings In Anticipation O (08/04/18 16:18) Lactic Acid Analyzer (08/04/18 16:18) Ceftriaxone For Iv Use (Rocephin For I (08/04/18 16:30) Ketorolac Injection (Toradol Injection) (08/04/18 16:30) Medications Given in ED Vital Signs/I&O Capillary Refill : Progress Note : Time: 17:07 Progress Note No flu or other explanation for her symptoms. Urine is clean on a straight catheter. We'll go ahead and treat her for endometritis post D&C. 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 She states she's never actually had penicillin her penicillin allergy is because her brother and father both had anaphylactic reactions as well as her father had to have what sounds like Ross-Anton syndrome with skin grafts. She has tolerated amoxicillin and Augmentin before. Augmentin would be a good choice but we may choose clindamycin just to stay away from penicillins at this time. She does not appear septic on her lab workup. While her white count is above 12.5 and her heart rate was above 90 and she had subjective chills we could consider her septic but she's received a dose of Rocephin and would prefer not to do inpatient IV therapy. Toradol for her pain gave good relief. Diagnostic Imaging Diagonstic Imaging: Xray Plain Films/CT/US/NM/MRI: chest (1v) Comments NAME: MARIS VALENTINO [facility] REC#: [id number] PT STATUS: REG ER : 1990 PHYSICIAN: PALMER BOWEN MD ADMIT DATE: 08/04/18/ER Draft Date of Exam:08/04/18 CHEST 1 VIEW, AP/PA ONLY INDICATION: Nausea and anxiety. COMPARISON: 05/15/2017. FINDINGS: The heart size, mediastinal configuration, and pulmonary vascularity are within normal limits. There is no pleural effusion, pneumothorax, or pneumonia. The osseous structures are unremarkable. IMPRESSION: No acute cardiopulmonary abnormality. Dictated on workstation # [id number] Dict: 08/04/181701 Trans: 08/04/181702 [id number] Interpreted by: HOOD WORLEY MD Electronically signed by: Reviewed: Reviewed by Me Departure Impression Primary Impression: Endometritis following abortive Disposition: HOME, SELF-CARE Condition: Stable Departure-Patient Inst. Decision time for Depature: 17:30 Referrals: [facility] (PCP) Primary Care Physician BASHIR SAMUELS DO Patient Instructions: Pelvic Inflammatory Disease (DC) Add. 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 Follow- up with Dr. Ashley in 1 week. Drink plenty of fluids. Work/School Note: Work Release Form Date Seen in the Emergency Department: Aug 04, 2018 Return to Work: Aug 05, 2018 Restrictions: No Restrictions Copy Copies To 1: BASHIR SAMUELS TITUS J Aug 04, 2018 16:23
[2018-08-04] MEDS ORDERED: KETOROLAC 30 MG/ML VIAL IVP ONE (16:30)
[2018-08-04] MEDS ORDERED: cefTRIAXone FOR IV USE 1,000 MG in WATER (STERILE) FOR INJECTION 10 ML IV ONE (16:30)
[2018-08-04 16:48] LABS: BILIRUBIN,URINE NEGATIVE (NEGATIVE); CLARITY,URINE CLEAR; COLOR,URINE YELLOW; GLUCOSE, URINE (UA) NEGATIVE (NEGATIVE); KETONES,URINE NEGATIVE (NEGATIVE); LEUKOCYTE ESTERASE ,URINE NEGATIVE (NEGATIVE); NITRITE,URINE NEGATIVE (NEGATIVE); PH,URINE 8 (5-9); PROTEIN,URINE NEGATIVE (NEGATIVE); UROBILINOGEN,URINE NORMAL (NORMAL)
[2018-08-04 16:57] LABS: BASOPHILS % (AUTO) 0 % (0-10); EOSINOPHILS # (AUTO) 0.3 10^3/uL (0.0-0.3); EOSINOPHILS % (AUTO) 2 % (0-10); HEMATOCRIT 33 % (35-52); HEMOGLOBIN 11.3 G/DL (11.5-16.0); LYMPHOCYTES # (AUTO) 2.9 X 10^3 (1.0-4.0); LYMPHOCYTES % (AUTO) 22 % (12-44); MEAN CORPUSCULAR HEMOGLOBIN 34 PG (25-34); MEAN CORPUSCULAR HGB CONC 34 G/DL (32-36); MEAN CORPUSCULAR VOLUME 99 FL (80-99); MEAN PLATELET VOLUME 11.4 FL (7.4-10.4); MONOCYTES # (AUTO) 0.9 X 10^3 (0.0-1.0); MONOCYTES % (AUTO) 7 % (0-12); NEUTROPHILS # (AUTO) 8.8 X 10^3 (1.8-7.8); NEUTROPHILS % (AUTO) 68 % (42-75); PLATELET COUNT 223 10^3/uL (130-400); RED CELL DISTRIBUTION WIDTH 12.1 % (10.0-14.5); WHITE BLOOD COUNT 12.9 10^3/uL (4.3-11.0)
[2018-08-04 17:03] LABS: BACTERIA,URINE NEGATIVE /HPF; SQUAMOUS EPITHELIAL CELL,UR 0-2 /HPF; WBC,URINE RARE /HPF
--- NOTE | 2018-08-04 17:03 | Diagnostic Imaging Report ---
INDICATION: Nausea and anxiety. COMPARISON: 05/15/2017. FINDINGS: The heart size, mediastinal configuration, and pulmonary vascularity are within normal limits. There is no pleural effusion, pneumothorax, or pneumonia. The osseous structures are unremarkable. IMPRESSION: No acute cardiopulmonary abnormality. Dictated by: Dictated on workstation # [id number]
[2018-08-04 17:13] LABS: PROTHROMBIN TIME PATIENT 13.5 SEC (12.2-14.7)
[2018-08-04 17:25] LABS: ALANINE AMINOTRANSFERASE 12 U/L (0-55); ALBUMIN 4.8 GM/DL (3.2-4.5); ALKALINE PHOSPHATASE 47 U/L (40-136); BILIRUBIN,TOTAL 0.3 MG/DL (0.1-1.0); BUN/CREATININE RATIO 12; CALCIUM 9.7 MG/DL (8.5-10.1); CARBON DIOXIDE 27 MMOL/L (21-32); CHLORIDE 105 MMOL/L (98-107); CREATININE SERUM 0.67 MG/DL (0.60-1.30); GFR ESTIMATED > 60; GLUCOSE 81 MG/DL (70-105); POTASSIUM 3.5 MMOL/L (3.6-5.0); SODIUM 141 MMOL/L (135-145); TOTAL PROTEIN 7.2 GM/DL (6.4-8.2)
[2018-08-04 18:16] VITALS: BP 126/83
== END 2018-08-04 18:20 | disposition home or self-care (01) ==
LOC: EDUNIT# 16:00 → ER 16:02
DX: O86.12 Endometritis following delivery (principal); O99.345 Other mental disorders complicating the puerperium; F41.9 Anxiety disorder, unspecified; F64.9 Gender identity disorder, unspecified; O90.81 Anemia of the puerperium; D64.9 Anemia, unspecified; Z88.0 Allergy status to penicillin; Z77.22 Contact with and (suspected) exposure to environmental tobacco smoke (acute) (chronic); Z82.49 Family history of ischemic heart disease and other diseases of the circulatory system; Z90.89 Acquired absence of other organs; Z90.49 Acquired absence of other specified parts of digestive tract; Z87.59 Personal history of other complications of pregnancy, childbirth and the puerperium
CPT/HCPCS: 36415; 71045; 80053; 81000; 83605; 85025; 85610; 85730; 87040; 87088; 87804; 96361; 96365; 96375

== ENCOUNTER 2018-10-14 09:40 | Emergency (ER) | payer OTHER ==
[~2018-10-14] VITALS: Ht 157.5 cm; Wt 61.2 kg
[~2018-10-14 09:40] MED LIST changes: +ACET-2267 PO; +OXYC-529 PO
[2018-10-14 10:35] VITALS: BP 134/77
--- NOTE | 2018-10-14 10:56 | NUR ---
PT. HAS DECIDED TO [facility]. STATES SHE CAN WAIT TO SEE ORTHOPEDIST TOMORROW AND WILL KEEP HER APPT. [facility]BS PAPER SIGNED.
== END 2018-10-14 11:00 | disposition left against medical advice (07) ==
LOC: ER 09:40 → EDUNIT# 09:40 → ER 11:00
DX: R42 Dizziness and giddiness (principal); R00.0 Tachycardia, unspecified; M54.41 Lumbago with sciatica, right side; Z79.52 Long term (current) use of systemic steroids
CPT/HCPCS: 99281

== ENCOUNTER → 2018-12-04 | Outpatient (CLI) | payer OTHER ==
--- NOTE | 2018-12-04 15:24 | Diagnostic Imaging Report ---
PROCEDURE: MRI lumbar spine. TECHNIQUE: Multiplanar, multisequence MRI of the lumbar spine was performed without contrast. INDICATION: Back pain. COMPARISON: There are no prior studies available for comparison. FINDINGS: The T2 parasagittal images show the vertebral body heights and alignment to be within normal limits. There is narrowing and desiccation of the disc at L5-S1, and there is a prominent disc protrusion eccentric to the right at this level. The disc material compresses the right ventral aspect of the thecal sac and does produce spinal stenosis. There may also be encroachment of the exiting right nerve root at this level. The remainder of the lumbar spine is unremarkable for spinal stenosis or nerve root encroachment. There is no abnormal signal arising from the cord or the vertebral bodies to indicate an acute abnormality. There is no sign of a paraspinal mass. IMPRESSION: 1. There is degenerative disc disease at L5-S1. There is a prominent disc protrusion to the right at this level, and this does result in spinal stenosis and probable encroachment of the exiting right nerve root. 2. The remainder of the lumbar spine is unremarkable for spinal stenosis or nerve root encroachment. 3. There is no sign of an acute bony abnormality or of a cord lesion. Dictated by: Dictated on workstation # [id number]
== END ==
LOC: RAD 13:35
PROVIDERS: ATTEND Physician Assistant
DX: M51.37 Other intervertebral disc degeneration, lumbosacral region (principal); M51.26 Other intervertebral disc displacement, lumbar region; M48.061 Spinal stenosis, lumbar region without neurogenic claudication
CPT/HCPCS: 72148

== ENCOUNTER 2020-05-13 23:15 | Emergency (ER) | payer OTHER ==
[~2020-05-13] VITALS: Ht 157.5 cm; Wt 68.0 kg
[~2020-05-13 23:15] MED LIST changes: -GUAI400T71 PO; +GUAI400T86 PO; +OXC5T PO; -OXYC-529 PO
[2020-05-14 00:01] LABS: BILIRUBIN,URINE NEGATIVE (NEGATIVE); CLARITY,URINE CLEAR; COLOR,URINE YELLOW; GLUCOSE, URINE (UA) NEGATIVE (NEGATIVE); KETONES,URINE NEGATIVE (NEGATIVE); LEUKOCYTE ESTERASE ,URINE NEGATIVE (NEGATIVE); NITRITE,URINE NEGATIVE (NEGATIVE); PROTEIN,URINE NEGATIVE (NEGATIVE)
[2020-05-14 00:29] LABS: BACTERIA,URINE TRACE /HPF; RBC,URINE 25-50 /HPF; SQUAMOUS EPITHELIAL CELL,UR 25-50 /HPF; WBC,URINE 0-2 /HPF
--- NOTE | 2020-05-14 01:00 | NUR ---
Report taken from Skip Perdomo RN.
--- NOTE | 2020-05-14 01:06 | ED GU-Female ---
General Chief Complaint: OB < 20 WEEKS Stated Complaint: BLOOD IN URINE;19 WEEKS PREG Nursing Triage Note: Pt ambulates to room #8 with c/o blood in urine. Pt reports approx 2000 on this day after urination, she noted "bright pink" bleeding when wiping. Pt reports she then began to experience medial lower abd cramping. Reports to be approx 20wks et unsure when her LMP occurred. A&OX4. Nursing Sepsis Screen: No Definite Risk Source: patient Exam Limitations: no limitations History of Present Illness Date Seen by Provider: May 13, 2020 Time Seen by Provider: 23:20 Initial Comments This 30 year old young lady presents to the ER with concerns about pink coloration to her urine and on the toilet paper with wiping. She also developed some pelvic cramping this evening. She is approximately 19 weeks gestational age and sees Dr. JON for her care. She has had multiple miscarriages in the past and is a bit anxious about this . She denies any other associated symptoms. She is fairly confident that the blood is ur ethral and not vaginal. She has only noted the blood with urinating. Symptoms started just this evening. She denies any intercourse that may have caused the bleeding. She does sometimes have to physically restrain her 6-year-old child who has behavioral problems. Allergies and Home Medications Allergies Coded Allergies: Penicillins (Verified Allergy, Unknown, 10/20/16) SEVERE FAMILY HX, SO PT HAS NEVER TAKEN. Home Medications Acetaminophen 500 Mg Tablet, 1,000 MG PO TID Prescribed by: BASHIR SAMUELS on 08/01/18 1310 Ibuprofen 600 Mg Tablet, 600 MG PO Q6H Prescribed by: BASHIR SAMUELS on 08/01/18 1310 Oxycodone Hcl 5 Mg Tablet, 5 MG PO Q4H Prescribed by: ABSHIR SAMUELS on 08/01/18 1310 Patient Home Medication List Home Medication List Reviewed: Yes Review of Systems Review of Systems Constitutional: no symptoms reported EENTM: no symptoms reported Respiratory: no symptoms reported Cardiovascular: no symptoms reported Gastrointestinal: no symptoms reported Genitourinary: see HPI : Yes Musculoskeletal: no symptoms reported Skin: no symptoms reported Psychiatric/Neurological: No Symptoms Reported Endocrine: No Symptoms Reported Hematologic/Lymphatic: No Symptoms Reported Past Urzcqpp-Pmhrwt-Glvxcj Hx Past Med/Social Hx: Reviewed Nursing Past Med/Soc Hx Patient Social History Alcohol Use: Denies Use Recreational Drug Use: No Smoking Status: Current Everyday Smoker Type Used: Cigarettes 2nd Hand Smoke Exposure: Yes Recent Foreign Travel: No Contact w/Someone Who Travel: No Recent Infectious Disease Expo: No Recent Hopitalizations: Yes (D AND C) Immunizations Up To Date Tetanus Booster (TDap): Less than 5yrs PED Vaccines UTD: Yes Date of Influenza Vaccine: Mar 17, 2016 Seasonal Allergies Seasonal Allergies: No Past Medical History Surgeries: Yes Adenoidectomy, Appendectomy, Tonsillectomy Respiratory: No Currently Using CPAP: No Currently Using BIPAP: No Cardiac: No Neurological: No : No Reproductive Disorders: No Sexually Transmitted Disease: No HIV/AIDS: No Genitourinary: No Gastrointestinal: No Musculoskeletal: No Endocrine: No HEENT: No Cancer: No Psychosocial: Yes Anxiety Integumentary: No Blood Disorders: Yes (ANEMIA) Adverse Reaction/Blood Tranf: No Family Medical History Diabetes mellitus (MOTHER FATHER) FH: cancer (MOTHER PGF) FH: heart disease (FATHER MGM PGM) Hypertension (MOTHER FATHER MGM PGM MGF PGF) No Pertinent Family Hx Physical Exam Vital Signs Vital Signs - First Documented 05/13/20 23:47 Temp 36.7 Pulse 85 Resp 18 B/P (MAP) 110/67 (81) Pulse Ox 98 O2 Delivery Room Air Capillary Refill : Less Than 3 Seconds Height, Weight, BMI Height: 5'2.00" Weight: 135lbs. 0.0oz. 61.873160rp; 27.00 BMI Method:Stated General Appearance: WD/WN, no apparent distress HEENT: normal ENT inspection Neck: normal inspection Cardiovascular: regular rate, rhythm, no edema, no murmur Respiratory: lungs clear, normal breath sounds, no respiratory distress Gastrointestinal: normal bowel sounds, soft, tenderness (minimal TTP in the suprapubic region) Pelvic: normal external exam, no cerv. 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, no motor/sensory deficits, alert, normal mood/affect, oriented x 3 Skin: normal color, warm/dry Progress/Results/Core Measures Suspected Sepsis Recent Fever Within 48 Hours: No Infection Criteria Present: None New/Unexplained Altered Menta: No Sepsis Screen: No Definite Risk SIRS Temperature: Pulse: 85 Respiratory Rate: 18 Blood Pressure 110 /67 Mean: 81 Results/Orders Lab Results Laboratory Tests Test 05/13/20 23:50 05/14/20 01:18 Range/Units Urine Color YELLOW Urine Clarity CLEAR Urine pH 7.0 5-9 Urine Specific [place] 1.010 L 1.016-1.022 Urine Protein NEGATIVE NEGATIVE Urine Glucose (UA) NEGATIVE NEGATIVE Urine Ketones NEGATIVE NEGATIVE Urine Nitrite NEGATIVE NEGATIVE Urine Bilirubin NEGATIVE NEGATIVE Urine Urobilinogen 0.2 < = 1.0 MG/DL Urine Leukocyte Esterase NEGATIVE NEGATIVE Urine RBC (Auto) 3+ H NEGATIVE Urine RBC 25-50 H /HPF Urine WBC 0-2 /HPF Urine Squamous Epithelial Cells 25-50 H /HPF Urine Crystals NONE /LPF Urine Bacteria TRACE /HPF Urine Casts NONE /LPF Urine Mucus NEGATIVE /LPF Urine Culture Indicated NO My Orders Orders - POLO OCAMPO MD Ua Culture If Indicated (05/13/20 23:20) Urine Culture (05/14/20 00:49) Wet Prep (05/14/20 01:36) Neisseria Gonorrhea Swab (05/14/20 01:36) Genital Culture (05/14/20 01:36) Jorge Prep (05/14/20 01:36) Chlamydia Trachomatis Swab (05/14/20 01:36) Vital Signs/I&O 05/13/20 05/14/20 23:47 02:11 Temp 36.7 Pulse 85 87 Resp 18 14 B/P (MAP) 110/67 (81) 110/67 Pulse Ox 98 97 O2 Delivery Room Air Room Air Capillary Refill : Less Than 3 Seconds Blood Pressure Mean: 81 Progress Note #1: Time: 01:47 Progress Note Urinalysis demonstrated blood but no signs of infection. Pelvic exam was offered to evaluate for vaginal bleeding. Patient is quite anxious about her situation due to prior miscarriages and requested we proceed with a pelvic exam. There was no evidence of blood in or near the vaginal canal. Cervix appeared healthy. There was a clumpy white discharge in the vaginal canal that may represent yeast. There is no unusual pain with the exam. Culture swabs were collected. Progress Note #2: Progress Note Microscopy demonstrated white blood cells but no other abnormalities. heart tones were noted in the 150s and patient noted movement today. Pat ient was stable for discharge and no treatment was administered. She was advised to follow-up with Dr. JON on Saturday regarding her hematuria and pelvic discomfort. Vaginal and urine cultures are pending. Departure Impression Primary Impression: Hematuria Qualified Codes: R31.9 - Hematuria, unspecified Additional Impression: Pelvic pain affecting Qualified Codes: O26.892 - Other specified related conditions, second trimester; R10.2 - Pelvic and perineal pain Disposition: 01 HOME, SELF-CARE Condition: Stable Departure-Patient Inst. Decision time for Depature: 02:03 Ref[place]: [facility] [place] Primary Care Physician Add. Discharge Instructions: Drink plenty of clear liquids to stay well-hydrated. Follow-up with Dr. JON first thing on Saturday. Review vaginal and urine culture results with Dr. JON. You may take Tylenol (acetaminophen) for pain. Call or return to care if you have worsening symptoms or develop new symptoms such as fever, vaginal bleeding, etc. Observe vaginal rest (nothing in the vagina including intercourse) until you are cleared by Dr. JON. All discharge instructions reviewed with patient and/or family. Voiced understanding. Copy Copies To 1: TOM JON DO Copies To 2: PANKAJ IBANEZ JOSHUA T MD May 14, 2020 01:06
[2020-05-14 02:11] VITALS: BP 110/67
== END 2020-05-14 02:11 | disposition home or self-care (01) ==
LOC: EDUNIT# 23:15 → ER 23:19
DX: O26.892 Other specified pregnancy related conditions, second trimester (principal); R31.9 Hematuria, unspecified; R10.2 Pelvic and perineal pain; F41.9 Anxiety disorder, unspecified; F17.210 Nicotine dependence, cigarettes, uncomplicated; Z82.49 Family history of ischemic heart disease and other diseases of the circulatory system; Z83.3 Family history of diabetes mellitus; Z80.9 Family history of malignant neoplasm, unspecified; Z88.0 Allergy status to penicillin; Z3A.19 19 weeks gestation of pregnancy
CPT/HCPCS: 36415; 81000; 87070; 87088; 87205; 87210; 87491; 87591

== ENCOUNTER → 2020-05-18 | Outpatient (CLI) | payer OTHER ==
--- NOTE | 2020-05-18 11:52 | Diagnostic Imaging Report ---
INDICATION: survey. TECHNIQUE: Multiple real-time grayscale images were obtained over the gravid uterus. COMPARISON: None FINDINGS: There is a single live fetus in a breech presentation. heart rate was recorded at 147 bpm. Placenta is anterior. No previa is detected. Amniotic fluid index is 17.8 cm. Cervical length is 3.3 cm. A survey demonstrates kidneys, bladder and stomach to be unremarkable. brain is unremarkable. There is a four-chamber heart. There is a three-vessel cord with normal insertion. spine is unremarkable. Biometrical measurements are as follows: Biparietal 4.89 cm, age 20 weeks 6 days. Head circumference 18.02 cm, age 20 weeks 4 days. Abdominal circumference 15.26 cm, age 20 weeks 4 days. Femur length 3.23 cm, age 20 weeks 1 days. Sonographic estimate age: 20 weeks 4 days. Sonographic estimated date of delivery: 10/01/2020. Estimated Weight: 346 gm (+/- 51 gm). LMP percentile: 25%. heart rate: 147 beats per minute. number: 1 of 1. IMPRESSION: Single live IUP 20 weeks 4 days gestational age with estimated date of confinement sonographically of 10/01/2020. No complicating features are identified. Dictated by: Dictated on workstation # [id number]
== END ==
LOC: RAD 09:52
PROVIDERS: ATTEND Obstetrics & Gynecology
DX: Z34.92 Encounter for supervision of normal pregnancy, unspecified, second trimester (principal); Z3A.20 20 weeks gestation of pregnancy
CPT/HCPCS: 76805

== ENCOUNTER 2020-09-13 20:52 | Outpatient (CLI) | payer OTHER ==
[~2020-09-13] VITALS: Ht 157.5 cm; Wt 77.5 kg
[2020-09-13 21:09] VITALS: BP 127/78
[2020-09-13 21:29] LABS: BILIRUBIN,URINE NEGATIVE (NEGATIVE); CLARITY,URINE CLEAR; COLOR,URINE YELLOW; GLUCOSE, URINE (UA) NEGATIVE (NEGATIVE); KETONES,URINE TRACE (NEGATIVE); LEUKOCYTE ESTERASE ,URINE NEGATIVE (NEGATIVE); NITRITE,URINE NEGATIVE (NEGATIVE); PROTEIN,URINE NEGATIVE (NEGATIVE)
[2020-09-13] MEDS ORDERED: FERR-84 PO (21:36)
[2020-09-13] MEDS ORDERED: PREN-142 PO (21:36)
[2020-09-13 21:37] LABS: BACTERIA,URINE TRACE /HPF; SQUAMOUS EPITHELIAL CELL,UR 0-2 /HPF; WBC,URINE 0-2 /HPF
--- NOTE | 2020-09-14 09:12 | Physician Query-Final Dx ---
SHARMILA PARKS 09/14/20 0912: Clinic Account Progress/Dx Physician Query: Please give diagnosis Please include # weeks gestation Date of Service Sep 13, 2020 at 20:52 BASHIR SAMUELS DO 09/14/20 1230: Clinic Account Progress/Dx DIAGNOSIS: Diagnosis 37 weeks contractions SHARMILA PARKS Sep 14, 2020 09:12 BASHIR SAMUELS DO Sep 14, 2020 12:30
== END 2020-09-13 22:25 | disposition home or self-care (01) ==
LOC: LDRP 20:52 → WSo 20:52
PROVIDERS: ATTEND Obstetrics & Gynecology
DX: O62.4 Hypertonic, incoordinate, and prolonged uterine contractions (principal); Z3A.37 37 weeks gestation of pregnancy
CPT/HCPCS: 81000; G0463; 99213

== ENCOUNTER 2020-09-29 06:03 | Inpatient (IN) | payer OTHER ==
[~2020-09-29] VITALS: Ht 157.5 cm; Wt 78.3 kg
[2020-09-29] VITALS (46 sets, daily range): BP systolic 99–147; BP diastolic 52–79
[~2020-09-29 06:03] MED LIST changes: +PREN-142 PO
[2020-09-29] MEDS ORDERED: D5 LR IV SOLUTION 1,000 ML IV ONE (06:44)
--- NOTE | 2020-09-29 07:23 | History & Physical-OB/GYN ---
PETERYVETTE Bear MED STUDENT 09/29/20 0723: OB - Chief Complaint & HPI Date/Time Date of Admission: Date of Admission: Sep 29, 2020 at 06:03 Date seen by a Provider: Sep 29, 2020 Chief Complaint/History OB-Reason for Admission/Chief: Induction of Labor Hx : 5 Hx Para: 1 Gestational Age in Weeks: 39 Gestational Age in Days: 6 Admission Nurse Assessment Rev: Yes History of Labs Pertinent labs reviewed Allergies and Home Medications Allergies Coded Allergies: Penicillins (Verified Allergy, Unknown, 10/20/16) SEVERE FAMILY HX, SO PT HAS NEVER TAKEN. Home Medications Ferrous Sulfate 325 Mg Tablet, 325 MG PO DAILY, (Reported) Vit No.124/Iron/FA 1 Each Tablet, 1 EACH PO DAILY, (Reported) Patient Home Medication List Home Medication List Reviewed: Yes OB - History Hx of Present Care: Yes Ultrasounds: Normal mid trimester US Obstetrical Complications: None Medical Complications: Other (anxiety) Information Induced Hypertension: No Maternal Gestational Diabetes: No Hemorrhage: No Obstetrical History Hx : 3 Hx Para: 1 Hx # Term Pregnancies: 1 Number of Living Children: 1 Hx Termination: No Hx Total # of Abortions (Spona: 3 Hx Multiple Gestation: No Hx Ectopic : No Hx Stillbirth: No Hx Complication: No Hx Induced Hypertens: No Hx Maternal Gestational Diabet: No Hx Hemorrhage: No Delivery History Hx Blood Disorders: No Adverse Rxn to Tranfusion: No Patient Past Medical History see above Social History/Family History Alcohol Use: Denies Use Recreational Drug Use: No Smoking Cessation: Current every day smoker (1 pack per day) 2nd Hand Smoke Exposure: Yes Immunizations Hepatitis A: Yes Hepatitis B: Yes Tetanus Booster (TDap): Less than 5yrs Date of Influenza Vaccine: Mar 17, 2016 Rubella: not immune RPR/VDRL: Negative GBS Status: Negative HBsAG: Negative OB - Admission Exam Physical Exam HEENT: NCAT Heart: Rhythm Normal Lungs: Clear Abdomen: Gravid Extremities: Normal Cervical Dilatation: 3cm Effacement: 75% Station: -1 Membranes: Ruptured (AROM) Amniotic Fluid: Clear Heart Rate: 150's Accelerations: Accelerations Present Decelerations: Variable Decelerations Short Term Variability: Present Senior Care Variability: Average (6-25) Contractions on Admission: 6-10 Minutes Apart Intensity: Mild Medrano Scoring Tool (Modified) Dilation (cm): 3-4cm (2) Effacement (%): 51-79% (2) Descent/Station: -1,0 (2) Cervix Consistency: Soft (2) Cervix Position: Anterior (2) Add 1 point for: Each previous vaginal delivery (1) OB - Assessment/Plan/Diagnosis Assessment Assessment: induction of labor, rupture of membranes Admission Dx Induction of labor in a 29 GBS negative, Syphilis/GC negative, O negative, antibody positive, rubella non-immune mother. Medrano score is 10. Admission Status: Observation Plan Plan: Induction Induction Method: AROM TOM GRUBER DO 09/29/20 1441: OB - Chief Complaint & HPI Date/Time Time Seen by a Provider: 07:55 Chief Complaint/History Expected Date of Delivery: Sep 30, 2020 Admission Nurse Assessment Rev: Yes Allergies and Home Medications Allergies Coded Allergies: Penicillins (Verified Allergy, Unknown, 10/20/16) SEVERE FAMILY HX, SO PT HAS NEVER TAKEN. Home Medications Ferrous Sulfate 325 Mg Tablet, 325 MG PO DAILY, (Reported) Vit No.124/Iron/FA 1 Each Tablet, 1 EACH PO DAILY, (Reported) Patient Home Medication List Home Medication List Reviewed: Yes OB - History Hx of Present Care: Yes Ultrasounds: Normal mid trimester US Obstetrical Complications: None Medical Complications: None, Other (anxiety) Patient Past Medical History n/a OB - Admission Exam Physical Exam HEENT: NCAT Heart: Rhythm Normal Lungs: Clear Abdomen: Gravid Extremities: Normal Cervical Dilatation: 3cm Effacement: 75% Station: -1 Membranes: Intact (AROM) Heart Rate: 130's Accelerations: Accelerations Present Decelerations: No Decelerations Short Term Variability: Present Tailings Worker Variability: Absent (0-2) Contractions on Admission: 6-10 Minutes Apart Intensity: Mild Medrano Scoring Tool (Modified) Dilation (cm): 3-4cm (2) Effacement (%): 51-79% (2) Descent/Station: -1,0 (2) Cervix Consistency: Soft (2) Cervix Position: Anterior (2) Add 1 point for: Each previous vaginal delivery (1) Medrano Score: 10 OB - Assessment/Plan/Diagnosis Assessment Assessment: induction of labor Admission Status: Inpatient Order (span 2 midnights) Reason for Inpatient Admission: induction of labor at term Plan Plan: Induction Induction Method: AROM (pitocin augmentation) Supervisory-Addendum Brief Verification & Attestation Participated in pt care: history Personally performed: exam Care discussed with: Medical Student Procedures: n/a Results interpretation: Verified all documentation Verification and Attestation of Medical Student E/M Service A medical student performed and documented this service in my presence. I reviewed and verified all information documented by the medical student and made modifications to such information, when appropriate. I personally performed the physical exam and medical decision making. Tom Gruber, Sep 29, 2020,14:41 YVETTE PETER MED STUDENT Sep 29, 2020 07:23 TOM GRUBER DO Sep 29, 2020 14:41
[2020-09-29 07:45] LABS: EOSINOPHILS # (AUTO) 0.2 10^3/uL (0.0-0.3); EOSINOPHILS % (AUTO) 1 % (0-10)
[2020-09-29 07:47] LABS: BASOPHILS # (AUTO) 0.1 10^3/uL (0.0-0.1); BASOPHILS % (AUTO) 1 % (0-10); HEMATOCRIT 37 % (35-52); HEMOGLOBIN 12.7 g/dL (11.5-16.0); LYMPHOCYTES # (AUTO) 2.8 10^3/uL (1.0-4.0); LYMPHOCYTES % (AUTO) 21 % (12-44); MEAN CORPUSCULAR HEMOGLOBIN 34 pg (25-34); MEAN CORPUSCULAR HGB CONC 34 g/dL (32-36); MEAN CORPUSCULAR VOLUME 98 fL (80-99); MEAN PLATELET VOLUME 13.6 fL (9.0-12.2); MONOCYTES # (AUTO) 0.8 10^3/uL (0.0-1.0); MONOCYTES % (AUTO) 6 % (0-12); NEUTROPHILS # (AUTO) 9.4 10^3/uL (1.8-7.8); NEUTROPHILS % (AUTO) 71 % (42-75); PLATELET COUNT 170 10^3/uL (130-400); WHITE BLOOD COUNT 13.3 10^3/uL (4.3-11.0)
[2020-09-29] MEDS: D5 LR IV SOLUTION 1,000 ML IV SCH ×2 (07:56→14:45)
[2020-09-29] MEDS ORDERED: OXYTOCIN PRE-MIX DRIP 500 ML IV SCH ×2 (09:15→14:45)
[2020-09-29] MEDS ORDERED: fentaNYL 2 mcg/ml BUPIVA 0.125 100 ML ONE (09:37)
[2020-09-29] MEDS: LACTATED RINGERS 1,000 ML IV ONE ×2 (09:40→11:16)
[2020-09-29] MEDS ORDERED: fentaNYL INJ 100 MCG/2 ML AMP ONE (10:13)
[2020-09-29] MEDS ORDERED: BUPIVACAINE 0.25% 30 ML (SENSORCAINE) VIAL ONE (10:13)
[2020-09-29] MEDS ORDERED: fentaNYL 2 mcg/ml BUPIVA 0.125 100 ML IV SCH (10:30)
[2020-09-29] MEDS ORDERED: ONDANSETRON 4 MG/2 ML (SDV) Z0FRAN IV PRN (10:30)
[2020-09-29] MEDS ORDERED: diphenhydrAMINE 50 MG/ML INJ (BENADRYL) IV PRN (10:30)
[2020-09-29] MEDS ORDERED: CATHETER FLUSH 10 ML SYR IV PRN (10:30)
[2020-09-29] MEDS ORDERED: NALOXONE 0.4 MG/ML 1 ML (NARCAN) VIAL IV PRN (10:30)
[2020-09-29] MEDS ORDERED: LIDOCAINE/EPI 2% 1:200,00 (XYLOCAINE) 20 ML VIAL ONE (13:15)
[2020-09-29] MEDS ORDERED: CATHETER FLUSH 10 ML SYR IV SCH ×2 (14:00→22:00)
[2020-09-29] MEDS ORDERED: DIBUCAINE 1% OINTMENT 30 GM TUBE TOP PRN (14:45)
[2020-09-29] MEDS ORDERED: MEASLES,MUMPS,RUBELLA 1 EA INJ SQ ONE (14:45)
[2020-09-29] MEDS ORDERED: WITCH HAZEL(TUCKS) 40 EA JAR TOP PRN (14:45)
[2020-09-29] MEDS ORDERED: BENZOCAINE/MENTHOL (DERMOPLAST) 56 ML CAN TP PRN (14:45)
[2020-09-29] MEDS ORDERED: HYDROcodone/APAP 5 MG/325 MG (LORTAB) TAB PO PRN (14:45)
[2020-09-29] MEDS ORDERED: TETANUS,DIPTH,PERTUSS P/F (BOOSTRIX) 0.5 ML VIAL IM ONE (14:45)
--- NOTE | 2020-09-29 14:49 | OB Labor & Delivery Record ---
L&D History Date of Service Date of Service: Sep 29, 2020 History Expected Date of Delivery: Sep 30, 2020 Gestational Age in Weeks: 39 Hx : 3 Hx Para: 1 Complications Events: Routine care Operative Indications (Cesarea: N/A-Vaginal Delivery Intrapartal Events: None L&D Stage1 Stage One Onset of Labor - Date: Sep 29, 2020 Monitors and Tracing Monitor Mode: External Heart Rate: 140 Monitor Accelerations: Uniform Monitor Decelerations: None Station: -1 Intermediate Variability: Average (6-10) Short Term Variability: Present Presentation: Vertex Vital Signs VS - Last 72 Hours, by Label 09/29/20 09/29/20 09/29/20 09/29/20 07:48 07:48 07:48 08:15 Temp 36.9 36.9 37.2 Pulse 76 69 64 Resp 18 18 18 B/P (MAP) 117/64 (81) 117/64 (81) Pulse Ox 100 100 O2 Delivery Room Air Room Air Room Air Room Air 09/29/20 09/29/20 09/29/20 09/29/20 09:25 09:45 10:00 10:20 Temp 37.0 37.0 37.0 37.0 Pulse 69 71 58 78 Resp 18 18 18 18 B/P (MAP) 106/59 (75) 132/64 (86) 132/68 (89) 111/74 (86) Pulse Ox 98 98 97 100 O2 Delivery Room Air Room Air Room Air Room Air 09/29/20 09/29/20 09/29/20 09/29/20 10:30 10:32 10:36 10:40 Temp 37.2 Pulse 80 71 67 66 Resp 18 18 18 18 B/P (MAP) 147/76 (99) 136/66 (89) 126/79 (95) 130/69 (89) Pulse Ox 100 100 100 100 O2 Delivery Room Air Room Air Room Air Room Air 09/29/20 09/29/20 09/29/20 09/29/20 10:42 10:44 10:46 10:48 Pulse 88 69 73 70 Resp 18 18 16 16 B/P (MAP) 131/76 (94) 128/72 (90) 128/76 (93) 130/70 (90) Pulse Ox 100 100 100 96 O2 Delivery Room Air Room Air Room Air Room Air 09/29/20 09/29/20 09/29/20 09/29/20 10:50 10:54 10:56 11:00 Pulse 78 81 84 67 Resp 16 16 16 16 B/P (MAP) 120/60 (80) 114/56 (75) 119/59 (79) 122/58 (79) Pulse Ox 99 99 99 99 O2 Delivery Room Air Room Air Room Air Room Air 09/29/20 09/29/20 09/29/20 09/29/20 11:10 11:15 11:20 11:25 Temp 36.3 Pulse 67 69 69 64 Resp 16 16 16 16 B/P (MAP) 120/67 (84) 114/56 (75) 107/57 (74) 113/56 (75) Pulse Ox 99 99 99 99 O2 Delivery Room Air Room Air Room Air Room Air 09/29/20 09/29/20 09/29/20 09/29/20 11:30 11:35 11:40 11:45 Pulse 63 60 71 60 Resp 16 16 16 16 B/P (MAP) 104/57 (73) 113/57 (75) 125/57 (79) 108/52 (70) Pulse Ox 98 99 98 99 09/29/20 09/29/20 09/29/20 09/29/20 12:00 12:15 12:30 12:45 Temp 36.9 Pulse 60 58 58 65 Resp 16 16 16 16 B/P (MAP) 118/53 (74) 107/56 (73) 99/56 (70) 101/56 (71) Pulse Ox 100 100 99 100 O2 Delivery Room Air Room Air Room Air Room Air 09/29/20 09/29/20 13:00 13:45 Pulse 61 68 Resp 16 16 B/P (MAP) 104/63 (77) 110/59 (76) Pulse Ox 100 O2 Delivery Room Air Room Air Rupture of Membranes Spontaneous Ruture of Membrane: No Amniotic Membrane Rupture Time: 0805 Amniotic Membrane Fluid Desc.: Clear Vaginal Bleeding Description: Normal Show Induction/Anesthesia Epidural Cath Placement - Time: 1041 Progress/Notes Patient admitted for elective IOL, she had AROM performed and received an e pidural shortly after pitocin augmentation started. She progressed to complete and + 2 statiom, using max dose of 8 mu/min. L&D Stage2 Stage Two Stage II Date: Sep 29, 2020 Monitors and Tracing Monitor Mode: External Heart Rate: 140 Short Term Variability: Present Position: Right Occiput Anterior Presentation: Vertex Cord Descript/Complications Cord Vessel Description: 3 Vessels Complications nuchal cord reduced x 1 Delivery Type Delivery Method: Spontaneous Vaginal Anterior Shoulder: Right Episiotomy/Perineal Laceration Laceraction(s)/Extensions: Yes Episiotomy Description: Periurethral Extnsion/lac Degree (describe repair) right periurethral repaired using 3-0 rapide in usual fashion. Condition of Delivery 1 minute Comment: 8 5 minute Comment: 9 Notes live female infant weight pending. Condition of Condition of : Living Exam: No Observed Abnormalities Resuscitation Resuscitation: N/A - Spontaneous Resp L&D Stage3 Stage Three Stage III Date: Sep 29, 2020 Pictocin Pitocin Administration mu/min: 8 Pitocin ml/hr: 8 Pitocin Administration Comment: 30 mu wide open after delivery of placenta Placenta Delivery Placenta Delivery: Spontaneous Delivery Summary Summary Estimated blood loss (mL): 250 Attending at delivery: Tom Jon DO Condition of Delivery Examined: Cervix Examined, Uterus Explored Post Hemorrhage: No Condition of Mother stable Condition of Infant (s) stable TOM JON DO Sep 29, 2020 14:49
[2020-09-29] MEDS: IBUPROFEN 600 MG (MOTRIN) TAB PO SCH (17:21)
[2020-09-29] MEDS: DOCUSATE SODIUM 100 MG (COLACE) CAP PO SCH (20:41)
[2020-09-30 00:09] VITALS: BP 109/58
[2020-09-30] MEDS: IBUPROFEN 600 MG (MOTRIN) TAB PO SCH ×3 (00:09→12:18)
[2020-09-30 05:09] VITALS: BP 110/64
[2020-09-30 06:26] LABS: BASOPHILS # (AUTO) 0.1 10^3/uL (0.0-0.1); BASOPHILS % (AUTO) 0 % (0-10); EOSINOPHILS # (AUTO) 0.2 10^3/uL (0.0-0.3); EOSINOPHILS % (AUTO) 1 % (0-10); HEMATOCRIT 35 % (35-52); HEMOGLOBIN 11.9 g/dL (11.5-16.0); LYMPHOCYTES # (AUTO) 3.8 10^3/uL (1.0-4.0); LYMPHOCYTES % (AUTO) 24 % (12-44); MEAN CORPUSCULAR HEMOGLOBIN 34 pg (25-34); MEAN CORPUSCULAR HGB CONC 34 g/dL (32-36); MEAN CORPUSCULAR VOLUME 100 fL (80-99); MEAN PLATELET VOLUME 13.8 fL (9.0-12.2); MONOCYTES # (AUTO) 1.3 10^3/uL (0.0-1.0); MONOCYTES % (AUTO) 8 % (0-12); NEUTROPHILS # (AUTO) 10.3 10^3/uL (1.8-7.8); NEUTROPHILS % (AUTO) 65 % (42-75); PLATELET COUNT 156 10^3/uL (130-400); WHITE BLOOD COUNT 15.7 10^3/uL (4.3-11.0)
[2020-09-30] MEDS ORDERED: PRENATAL VITAMIN 1 EA TAB PO SCH (07:00)
--- NOTE | 2020-09-30 07:00 | Anesthesia-Regional Post-Op ---
Regional Patient Condition Mental Status: Alert, Oriented x3 Circulation: Same as Pre-Op Headache: Absent Sensation: Full Recovery Motor Block: Absent Post Op Complications Complications None Follow Up Care/Instructions Patient Instructions None needed. Anesthesia/Patient Condition Patient is doing well, no complaints, stable vital signs, no apparent adverse anesthesia problems. No complications reported per nursing. D/C home per [facility] Criteria: MODESTO Salvador CRNA Sep 30, 2020 07:00
--- NOTE | 2020-09-30 08:27 | Postpartum Progress Note ---
Note Note Day # 1 Subjective: Patient is without complaints. Ambulating, voiding. Tolerating a regular diet without nausea or vomiting. Normal lochia. Pain is well controlled with oral pain medications. Objective: Physical Exam: General - Alert and oriented, no apparent distress Abdomen - Soft, appropriately tender to palpation, non-distended, fundus firm at umbilicus Extremities - no edema, negative Roxann's bilaterally Assessment: PPD 1 NVD Plan: Routine care. Encourage breast feeding. Encourage ambulation. Ferrous sulfate supplementation. Plan for discharge today Vitals - Labs Vital Signs - I&O Vital Signs Date Time Temp Pulse Resp B/P (MAP) Pulse Ox O2 Delivery O2 Flow Rate FiO2 09/30/20 05:09 36.3 71 16 110/64 (79) 99 Room Air 09/30/20 00:09 37.1 73 16 109/58 (75) 99 Room Air 09/29/20 20:41 36.6 60 16 106/62 (77) 99 Room Air 09/29/20 16:42 62 16 113/58 (76) Room Air 09/29/20 16:27 56 16 119/64 (82) Room Air 09/29/20 16:12 75 16 117/62 (80) Room Air 09/29/20 15:57 58 16 119/61 (80) Room Air 09/29/20 15:43 60 16 130/59 (82) Room Air 09/29/20 15:27 63 16 113/62 (79) Room Air 09/29/20 15:12 50 16 113/62 (79) Room Air 09/29/20 14:57 36.6 54 16 116/62 (80) Room Air 09/29/20 14:42 54 16 109/59 (76) Room Air 09/29/20 14:15 68 16 121/59 (79) Room Air 09/29/20 14:00 63 16 106/57 (73) Room Air 09/29/20 13:45 68 16 110/59 (76) Room Air 09/29/20 13:30 60 16 108/60 (76) 100 Room Air 09/29/20 13:15 63 16 105/59 (74) 100 Room Air 09/29/20 13:00 61 16 104/63 (77) 100 Room Air 09/29/20 12:45 65 16 101/56 (71) 100 Room Air 09/29/20 12:30 58 16 99/56 (70) 99 Room Air 09/29/20 12:15 58 16 107/56 (73) 100 Room Air 09/29/20 12:00 36.9 60 16 118/53 (74) 100 Room Air 09/29/20 11:45 60 16 108/52 (70) 99 09/29/20 11:40 71 16 125/57 (79) 98 09/29/20 11:35 60 16 113/57 (75) 99 09/29/20 11:30 63 16 104/57 (73) 98 09/29/20 11:25 64 16 113/56 (75) 99 Room Air 09/29/20 11:20 69 16 107/57 (74) 99 Room Air 09/29/20 11:15 69 16 114/56 (75) 99 Room Air 09/29/20 11:10 36.3 67 16 120/67 (84) 99 Room Air 09/29/20 11:00 67 16 122/58 (79) 99 Room Air 09/29/20 10:56 84 16 119/59 (79) 99 Room Air 09/29/20 10:54 81 16 114/56 (75) 99 Room Air 09/29/20 10:50 78 16 120/60 (80) 99 Room Air 09/29/20 10:48 70 16 130/70 (90) 96 Room Air 09/29/20 10:46 73 16 128/76 (93) 100 Room Air 09/29/20 10:44 69 18 128/72 (90) 100 Room Air 09/29/20 10:42 88 18 131/76 (94) 100 Room Air 09/29/20 10:40 66 18 130/69 (89) 100 Room Air 09/29/20 10:36 67 18 126/79 (95) 100 Room Air 09/29/20 10:32 71 18 136/66 (89) 100 Room Air 09/29/20 10:30 37.2 80 18 147/76 (99) 100 Room Air 09/29/20 10:20 37.0 78 18 111/74 (86) 100 Room Air 09/29/20 10:00 37.0 58 18 132/68 (89) 97 Room Air 09/29/20 09:45 37.0 71 18 132/64 (86) 98 Room Air 09/29/20 09:25 37.0 69 18 106/59 (75) 98 Room Air I & O 09/30/20 07:00 Intake Total 3395 ml Output Total 600 ml Balance 2795 ml Labs Laboratory Tests 09/30/20 05:52: White Blood Count 15.7H, Red Blood Count 3.48L, Hemoglobin 11.9, Hematocrit 35, Mean Corpuscular Volume 100H, Mean Corpuscular Hemoglobin 34, Mean Corpuscular Hemoglobin Concent 34, Red Cell Distribution Width 13.2, Platelet Count 156, Mean Platelet Volume 13.8H, Immature Granulocyte % (Auto) 1, Neutrophils (%) (Auto) 65, Lymphocytes (%) (Auto) 24, Monocytes (%) (Auto) 8, Eosinophils (%) (Auto) 1, Basophils (%) (Auto) 0, Neutrophils # (Auto) 10.3H, Lymphocytes # (A uto) 3.8, Monocytes # (Auto) 1.3H, Eosinophils # (Auto) 0.2, Basophils # (Auto) 0.1, Immature Granulocyte # (Auto) 0.1 TOM JON DO Sep 30, 2020 08:27
--- NOTE | 2020-09-30 08:30 | Discharge Inst-Women's Service ---
Discharge Inst-Women's Serv Depart Medication/Instructions New, Converted or Re-Newed RX: RX on Chart Final Diagnosis PPD 1 NVD Problems Reviewed?: Yes Consults/Follow Up Additional Follow Up: Yes Orders/Referrals Dr. Jon in 6 weeks Activity Activity: Activity as Tolerated Driving Instructions: No Driving for 1 Week NO SMOKING: NO SMOKING Nothing Inside Vagina: No Douching, No [place], No Tampons Diet Discharge Diet: No Restrictions Symptoms to Report to : Bleeding Excessive, Pain Increased, Fever Over 101 Degrees F, Vaginal Bleeding Increase, Questions/Concerns For Any Problems or Questions: Contact Your Physician TOM JON DO Sep 30, 2020 08:29
[2020-09-30] MEDS ORDERED: ACHD5005 PO (08:32)
[2020-09-30] MEDS ORDERED: DCS100C PO (08:32)
[2020-09-30] MEDS ORDERED: BENZ78AE5 TP (08:32)
[2020-09-30] MEDS ORDERED: PNV1TABL67 PO (08:32)
[2020-09-30] MEDS ORDERED: FERR325T18 PO (08:32)
[2020-09-30] MEDS ORDERED: IBUP-844 PO (08:32)
[2020-09-30] MEDS ORDERED: FERROUS SULF 325 MG (IRON) TAB PO SCH (09:00)
[2020-09-30 09:41] VITALS: BP 112/59
[2020-09-30] MEDS: DOCUSATE SODIUM 100 MG (COLACE) CAP PO SCH (09:44)
[2020-09-30 12:17] VITALS: BP 113/64
[2020-09-30 17:08] VITALS: BP 107/64
[2020-09-30 17:20] VITALS: BP 107/64
== END 2020-09-30 17:35 | disposition home or self-care (01) | DRG 807 ==
LOC: LDRP 06:03
PROVIDERS: ADMIT Obstetrics & Gynecology; ATTEND Obstetrics & Gynecology
PROC: 10E0XZZ Delivery of Products of Conception, External Approach (ICD-10-PCS; principal; 2020-09-29)
PROC: 10907ZC Drainage of Amniotic Fluid, Therapeutic from Products of Conception, Via Natural or Artificial Opening (ICD-10-PCS; 2020-09-29)
PROC: 0UQMXZZ Repair Vulva, External Approach (ICD-10-PCS; 2020-09-29)
DX: O71.82 Other specified trauma to perineum and vulva (principal); Z37.0 Single live birth; O69.81X0 Labor and delivery complicated by cord around neck, without compression, not applicable or unspecified; O99.334 Smoking (tobacco) complicating childbirth; F17.210 Nicotine dependence, cigarettes, uncomplicated; Z3A.39 39 weeks gestation of pregnancy; Z88.0 Allergy status to penicillin
CPT/HCPCS: 36415; 85025; 86850; 86900; 86901

== ENCOUNTER → 2023-01-16 | Outpatient (CLI) | payer OTHER ==
[~2023-01-16] MED LIST changes: +ALBU8.5H6 IH; +BENZ78AE5 TP; +DOCU-239 PO; +IBUP-844 PO; +PNV1TABL67 PO; -RT-ALBUINH IH
--- NOTE | 2023-01-16 10:08 | Diagnostic Imaging Report ---
PROCEDURE: MRI lumbar spine. TECHNIQUE: Multiplanar, multisequence MRI of the lumbar spine was performed without contrast. DATE: January 16, 2023. COMPARISON: MRI lumbar spine December 04, 2018. INDICATION: 32-year-old female, low back and right lower extremity pain. FINDINGS: The alignment of the lumbar spine is unremarkable. There is no evidence of a diffuse marrow demonstrating or replacing process. There is no identified focal concerning bone lesion, compression deformity, or fracture. The visualized cord and conus medullaris is unremarkable and terminates at the L1 level. There is moderate disc height loss at L5-S1. L1-L2: There is no disc bulge. The facet joints and ligamentum flavum are unremarkable. There is no foraminal narrowing. There is no spinal canal stenosis. L2-L3: There is no disc bulge. The facet joints and ligamentum flavum are unremarkable. There is no foraminal narrowing. There is no spinal canal stenosis. L3-L4: There is no disc bulge. The facet joints and ligamentum flavum are unremarkable. There is no foraminal narrowing. There is no spinal canal stenosis. L4-L5: There is a broad-based right paracentral, lateral recess, and foraminal disc protrusion with severe narrowing of the right lateral recess. Disc material does near the descending right L5 nerve root. The facet joints and ligamentum flavum are unremarkable. There is moderate right foraminal narrowing. There is very mild spinal canal stenosis. L5-S1: There is an annular tear and a right paracentral disc protrusion which does near the descending right S1 nerve on axial image 29 but does not definitely directly contact the nerve. The facet joints and ligamentum flavum are unremarkable. There is no foraminal narrowing. There is no spinal canal stenosis. IMPRESSION: 1. Broad-based right paracentral, lateral recess, and foraminal disc protrusion at L4-L5 causing severe narrowing of the right lateral recess, moderate right foraminal narrowing, and very mild spinal stenosis with disc material nearing the descending right L5 nerve root. 2. Annular tear and a right paracentral disc protrusion at L5-S1 which does near but does not definitely contact the descending right S1 nerve. There is no high-grade foraminal or spinal stenosis at this level. 3. The L4-L5 disc protrusion is new since December 04, 2018. The disc protrusion at L5-S1 is noticeably decreased in size since December 04, 2018. Dictated by: Dictated on workstation # [id number]
== END ==
LOC: RAD 08:58
PROVIDERS: ATTEND Nurse Practitioner Family
DX: M51.16 Intervertebral disc disorders with radiculopathy, lumbar region (principal); M48.061 Spinal stenosis, lumbar region without neurogenic claudication; M51.17 Intervertebral disc disorders with radiculopathy, lumbosacral region
CPT/HCPCS: 72148